=== PATIENT | male | born 1950 | race Caucasian/White ===

== ENCOUNTER 2017-10-17 16:47 | Inpatient (IN) | payer MEDICARE, OTHER ==
[2017-10-17 17:10] VITALS: BMI 25.0
[2017-10-17] MEDS ORDERED: Sodium Chloride 0.9% 1,000 ML IV STA ×2 (17:36→20:17)
--- NOTE | 2017-10-17 17:57 | RAD ---
HISTORY: unsteady gait COMPARISON: None available. TECHNIQUE: Chest, one view. FINDINGS: LUNGS: Mildly prominent interstitial markings may be chronic ; cannot entirely exclude mild infection or edema. Left basilar atelectasis. PLEURA: No significant pleural effusion identified. No definite pneumothorax . CARDIOVASCULAR: Heart size appears top normal. OSSEOUS STRUCTURES: Degenerative changes. VISUALIZED UPPER ABDOMEN: Unremarkable. OTHER FINDINGS: None. IMPRESSION: Mildly prominent interstitial markings may be chronic ; cannot entirely exclude mild infection or edema. Left basilar atelectasis.
[2017-10-17 18:29] LABS: BASO # 0.01 K/mm3 (0.0-2.0); BASO % 0.1 % (0.0-3.0); EOS % 0.1 % (1.5-5.0); GRAN # 12.28 (1.4-6.5); GRAN % 82.5 % (50.0-68.0); HEMATOCRIT 30.1 % (42.0-52.0); LYMPH # 1.3 (1.2-3.4); LYMPH % 8.8 % (22.0-35.0); MEAN CELL VOLUME 85.5 fl (80.0-105.0); MEAN CORPUSCULAR HEMOGLOBIN 29.3 pg (25.0-35.0); MEAN CORPUSCULAR HGB CONC 34.2 g/dl (31.0-37.0); MEAN PLATELET VOLUME 11.9 fl (7.0-11.0); MONO # 1.3 (0.1-0.6); MONO % 8.5 % (1.0-6.0); RED CELL DISTRIBUTION WIDTH 12.1 % (11.5-14.5); WHITE BLOOD COUNT 14.9 10^3/ul (4.5-11.0)
--- NOTE | 2017-10-17 18:35 | CT ---
PROCEDURE: CT HEAD WITHOUT CONTRAST. HISTORY: unsteady gait COMPARISON: None available. TECHNIQUE: Axial computed tomography images were obtained through the head/brain without intravenous contrast. Radiation dose: Total exam DLP = 1132.75 mGy-cm. This CT exam was performed using one or more of the following dose reduction techniques: Automated exposure control, adjustment of the mA and/or kV according to patient size, and/or use of iterative reconstruction technique. FINDINGS: HEMORRHAGE: No intracranial hemorrhage. BRAIN: There are mild chronic microangiopathic changes. There is no mass, mass effect or abnormal extra-axial fluid collection. There are old lacunar infarctions in the right basal ganglia. There are coarse atherosclerotic calcifications in the cavernous carotid and vertebral arteries. VENTRICLES: There is mild age-related global parenchymal volume loss and proportionate enlargement of the ventricles and cortical sulci. CALVARIUM: The skull base and calvarium are normal. PARANASAL SINUSES: There is mild mucosal thickening in the maxillary sinuses. 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 MASTOID AIR CELLS: Predominantly clear. OTHER FINDINGS: None. IMPRESSION: No acute intracranial abnormality. Mild chronic microangiopathic changes and mild age-related global parenchymal volume loss. Old lacunar infarctions in the right basal ganglia.
[2017-10-17 18:41] LABS: INR 1.04 (0.93-1.08); PARTIAL THROMBOPLASTIN TIME 30.5 Seconds (25.1-36.5)
--- NOTE | 2017-10-17 18:43 | ED PDOC ---
Arrival/HPI - General Chief Complaint: Weakness/Neurological Deficit Time Seen by Provider: 10/17/17 16:54 Historian: Patient, Family - History of Present Illness Narrative History of Present Illness (Text): 10/17/17 18:39 67-year-old male presents today sent in by the primary care physician for evaluation of unsteady gait.Family and patient yesterday vomited and became unresponsive and was seen at another hospital and had a CAT scan of the head and basic lab work and was sent home. Family states that the patient did not sleep last night and this morning they noticed that he was leaning towards the left with ambulation. Family states he usually is a little unsteady on his feet but this seemed to be a significant difference from his usual. Patient denies headache or dizziness. Patient denies chest pain or shortness of breath. Patient denies abdominal pain. Patient is complaining of left shoulder pain and low back pain has been ongoing since yesterday. He denies urinary symptoms. Patient is complaining of paresthesias in the bilateral lower legs. Family states the patient is a diabetic who has been uncontrolled. Family states that his recent blood tests showed that his hemoglobin A1c was 11. Time/Duration: Other (1 day) Symptom Onset: Gradual Symptom Course: Worsening Past Medical History - Provider Review Nursing Documentation Reviewed: Yes - Travel History Have you recently traveled outside [place] w/in the past 3 mons?: No - Cardiac Hx Hypertension: Yes - Pulmonary Hx Respiratory Disorders: No - Neurological Hx Neurological Disorder: No - HEENT Hx Blind: No - Renal Hx Renal Disorder: No - Endocrine/Metabolic Other/Comment: uncontrolled IDDM - Hematological/Oncological Hx Blood Disorders: No - Integumentary Hx Dermatological Disorder: No - Musculoskeletal/Rheumatological Hx Musculoskeletal Disorders: No - Gastrointestinal Hx Gastrointestinal Disorders: No - Genitourinary/Gynecological Hx Genitourinary Disorders: No - Psychiatric Hx Psychophysiologic Disorder: No Hx Substance Use: No - Anesthesia Hx Anesthesia: Yes Family/Social History - Physician Review Nursing Documentation Reviewed: Yes Family/Social History: Unknown Family HX Smoking Status: Never Smoked Hx Alcohol Use: No Hx Substance Use: No Allergies/Home Meds Allergies/Adverse Reactions: Allergies Penicillins Allergy (Verified 10/17/17 17:10) ITCHING Home Medications: Home Meds Medication Instructions Recorded Confirmed Gabapentin [Neurontin] 300 mg PO TID 10/17/17 10/17/17 Insulin Glargine, Recombina 0 unit SC DAILY 10/17/17 10/17/17 [Lantus] Insulin Lispro [humALOG] 0 unit SC DAILY 10/17/17 10/17/17 Losartan [Cozaar] 1 tab PO DAILY 10/17/17 10/17/17 Review of Systems - Review of Systems Constitutional: Fatigue. absent: Fevers Respiratory: absent: SOB, Cough Cardiovascular: absent: Chest Pain, Palpitations Gastrointestinal: Vomiting (once yesterday). absent: Abdominal Pain, Diarrhea, Nausea Genitourinary Male: absent: Dysuria, Frequency, Hematuria Musculoskeletal: Arthralgias (b/l knee pain), Back Pain. absent: Neck Pain Skin: absent: Rash, Pruritis Neurological: Gait Changes. absent: Headache Physical Exam Vital Signs Reviewed: Yes Vital Signs Temp Pulse Resp BP Pulse Ox 10/17/17 22:00 88 18 142/88 95 10/17/17 20:28 99.3 F 10/17/17 20:14 99.3 F 89 16 159/95 H 99 10/17/17 17:10 98.3 F 93 H 18 117/70 96 10/17/17 17:09 98.3 F 93 H 19 117/70 96 Temperature: Afebrile Blood Pressure: Normal Pulse: Regular Respiratory Rate: Normal Appearance: Positive for: Well-Appearing, Non-Toxic, Comfortable Pain Distress: None Mental Status: Positive for: Alert and Oriented X 3 Finger Stick Blood Glucose: 460 - Systems Exam Head: Present: Atraumatic Pupils: Present: PERRL Extroacular Muscles: Present: EOMI Ears: Present: Normal, NORMAL TM Mouth: Present: Moist Mucous Membranes Pharnyx: Present: Normal. No: ERYTHEMA, EXUDATE Neck: Present: Normal Range of Motion, Trachea Midline Respiratory/Chest: Present: Good Air Exchange, Rhonchi. No: Respiratory Distress, Accessory Muscle Use, Wheezes, Tachypneic, Tender to Palpation Cardiovascular: Present: Regular Rate and Rhythm, Normal S1, S2. No: Murmurs Abdomen: No: Tenderness, Distention, Rebound, Guarding Back: Present: Normal Inspection Upper Extremity: Present: Normal ROM. No: Tenderness Lower Extremity: Present: Normal ROM. No: Tenderness Neurological: Present: GCS=15, Speech Normal Skin: Present: Warm, Dry. No: Rashes Psychiatric: Present: Alert, Oriented x 3 Medical Decision Making ED Course and Treatment: 10/17/17 22:05 67-year-old male brought in by family for unsteady gait. Patient is alert and oriented. Stroke score is 0 Patient with stable vital signs. Complaining of generalized weakness. CBC: White blood cell count 14.9 CMP sodium 131 potassium 5.2 nightly 32 creatinine 1.6 glucose 461 Lactate 1.0 Troponin 0.05 Alcohol level negative UA: small blood, no leukocytes Chest x-ray:FINDINGS: LUNGS: Mildly prominent interstitial markings may be chronic ; cannot entirely exclude mild infection or edema. Left basilar atelectasis. PLEURA: No significant pleural effusion identified. No definite pneumothorax . CARDIOVASCULAR: Heart size appears top normal. OSSEOUS STRUCTURES: Degenerative changes. VISUALIZED UPPER ABDOMEN: Unremarkable. OTHER FINDINGS: None. IMPRESSION: Mildly prominent interstitial markings may be chronic ; cannot entirely exclude mild infection or edema. Left basilar atelectasis. CT of the head:FINDINGS: HEMORRHAGE: No intracranial hemorrhage. BRAIN: There are mild chronic microangiopathic changes. There is no mass, mass effect or abnormal extra-axial fluid collection. There are old lacunar infarctions in the right basal ganglia. There are coarse atherosclerotic calcifications in the cavernous carotid and vertebral arteries. VENTRICLES: There is mild age-related global parenchymal volume loss and proportionate enlargement of the ventricles and cortical sulci. CALVARIUM: The skull base and calvarium are normal. PARANASAL SINUSES: There is mild mucosal thickening in the maxillary sinuses. 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 MASTOID AIR CELLS: Predominantly clear. OTHER FINDINGS: None. IMPRESSION: No acute intracranial abnormality. Mild chronic microangiopathic changes and mild age-related global parenchymal volume loss. Old lacunar infarctions in the right basal ganglia. blood cultures and urine cultures pending. pt with hx of vomiting yesterday with ? moment of unconsciousness ? aspiration pna; pt started on vancomycin, clindamycin and levaquin IV. asa 325mg po given tylenol 975mg po given for low grade fever. pt given 2L NS iv bolus and 6 units regular insulin sq. case discussed with dr. alonzo; accepts admission to [facility] for pneumonia, leukocytosis, unsteady gait. Patient reassessment: Patient nontoxic well-appearing no distress eating [employer] in the emergency room alert and oriented 3 denying any complaints All results were discussed with the patient and family in depth. all aspects of this case were discussed the attending of record. impression; pna, leukocytosis, hyperglycemia, unsteady gait, renal insuffiency admit to tele. - Lab Interpretations Lab Results: 10/17/17 18:05 10/17/17 18:05 Lab Results 10/17/17 20:11: POC Glucose (mg/dL) 399 H 10/17/17 19:40: Urine Color Yellow, Urine Appearance Clear, Urine pH 5.5, Ur Specific [place] 1.010, Urine Protein 100 H, Urine Glucose (UA) >=1000, Urine Ketones Negative, Urine Blood Small H, Urine Nitrate Negative, Urine Bilirubin Negative, Urine Urobilinogen 0.2, Ur Leukocyte Esterase Negative, Urine RBC 15 - 20, Urine WBC 2 - 5, Ur Epithelial Cells 3 - 4 10/17/17 19:26: pO2 105 H, VBG pH 7.38, VBG pCO2 40.0, VBG HCO3 23.7, VBG Total CO2 24.9, VBG O2 Sat (Calc) 98.4 H, VBG Base Excess -1.3 L, VBG Potassium 4.9, Glucose 480 H*, Lactate 1.0, FiO2 21.0, Sodium 133.0, Chloride 102.0, Venous Blood Potassium 4.9 10/17/17 19:26: Alcohol, Quantitative < 10 10/17/17 18:05: PT 11.4, INR 1.04, APTT 30.5 10/17/17 18:05: WBC 14.9 H, RBC 3.52, Hgb 10.3 L, Hct 30.1 L, MCV 85.5, MCH 29.3 , MCHC 34.2, RDW 12.1, Plt Count 142, MPV 11.9 H, Gran % 82.5 H, Lymph % (Auto) 8.8 L, [place] % (Auto) 8.5 H, Eos % (Auto) 0.1 L, Baso % (Auto) 0.1, Gran # 12.28 H, Lymph # 1.3, [place] # 1.3 H, Eos # 0.0, Baso # 0.01 10/17/17 18:05: Sodium 131 L, Potassium 5.2 H, Chloride 99, Carbon Dioxide 23, Anion Gap 13, BUN 32 H, Creatinine 1.6 H, Est GFR ( Amer) 53, Est GFR ( Non-Af Amer) 44, Random Glucose 461 H*, Calcium 9.3, Total Bilirubin 1.2, AST 25 , ALT 42, Alkaline Phosphatase 80, Lactate Dehydrogenase 529, Total Creatine Kinase 137, Troponin I 0.05, NT-Pro-B Natriuret Pep 307, Total Protein 6.8, Albumin 3.9, Globulin 3.0, Albumin/Globulin Ratio 1.3, Lipase 80 10/17/17 17:27: POC Glucose (mg/dL) 460 H* - RAD Interpretation Radiology Orders: 10/17/17 17:20 CHEST PORTABLE [RAD] Stat 10/17/17 17:36 HEAD W/O CONTRAST [CT] Stat - Medication Orders Current Medication Orders: Acetaminophen (Tylenol 325mg Tab) 650 mg PO Q4H PRN PRN Reason: pain fever Albuterol/Ipratropium (Duoneb 3 Mg/0.5 Mg (3 Ml) Ud) 3 ml IH [id number] WILLAM Aspirin (Aspirin) 325 mg PO DAILY WILLAM Famotidine (Pepcid) 40 mg PO HS WILLAM Gabapentin (Neurontin) 300 mg PO TID WILLAM PRN Reason: Protocol Insulin Detemir (Levemir) 5 unit SC AMHS WILLAM Insulin Human Regular (Humulin R Low) 0 units SC ACHS WILLAM PRN Reason: Protocol Losartan Potassium (Cozaar) 25 mg PO DAILY WILLAM Discontinued Medications Acetaminophen (Tylenol 325mg Tab) 975 mg PO STAT STA Stop: 10/17/17 20:17 Last Admin: 10/17/17 20:28 Dose: 975 mg MAR Pain/Vitals Document 10/17/17 20:28 JOL (Rec: 10/17/17 20:28 JOL [id number]) Pain Reassessment Is This A Pain ReAssessment? No Sleep Is patient sleeping during reassessment? No Presence of Pain Presence of Pain No Vitals Temperature (97.6 F-99.6 F) 99.3 F Temperature Source Oral Aspirin (Aspirin) 325 mg PO STAT STA Stop: 10/17/17 20:14 Last Admin: 10/17/17 20:28 Dose: 325 mg Sodium Chloride (Sodium Chloride 0.9%) 1,000 mls @ 999 mls/hr IV .Q1H1M STA Stop: 10/17/17 18:36 Last Admin: 10/17/17 18:11 Dose: 999 mls/hr eMAR Start Stop Document 10/17/17 18:11 MR (Rec: 10/17/17 18:12 MR [id number]) Intravenous Solution Start Date 10/17/17 Start Time 18:12 End Date 10/17/17 End time 19:12 Total Infusion Time 60 Clindamycin Phosphate 600 mg/ (Sodium Chloride) 54 mls @ 108 mls/hr IVPB STAT STA PRN Reason: Protocol Stop: 10/17/17 19:37 Last Admin: 10/17/17 19:40 Dose: 108 mls/hr eMAR Start Stop Document 10/17/17 19:40 JOL (Rec: 10/17/17 19:46 JOL [id number]) Intravenous Solution Start Date 10/17/17 Start Time 19:40 End Date 10/17/17 End time 20:10 Total Infusion Time 30 Levofloxacin/Dextrose (Levaquin 750mg) 750 mg in 150 mls @ 100 mls/hr IVPB STAT STA PRN Reason: Protocol Stop: 10/17/17 20:38 Vancomycin HCl (Vancomycin 1gm) 1 gm in 250 mls @ 167 mls/hr IVPB STAT STA PRN Reason: Protocol Stop: 10/17/17 20:38 Last Admin: 10/17/17 20:13 Dose: 167 mls/hr eMAR Start Stop Document 10/17/17 20:13 JOL (Rec: 10/17/17 20:13 JOL [id number]) Intravenous Solution Start Date 10/17/17 Start Time 20:13 End Date 10/17/17 End time 21:43 Total Infusion Time 90 Sodium Chloride (Sodium Chloride 0.9%) 1,000 mls @ 999 mls/hr IV .Q1H1M STA Stop: 10/17/17 21:17 Last Admin: 10/17/17 20:28 Dose: 999 mls/hr eMAR Start Stop Document 10/17/17 20:28 JOL (Rec: 10/17/17 20:28 JO [id number]) Intravenous Solution Start Date 10/17/17 Start Time 20:28 End Date 10/17/17 End time 21:28 Total Infusion Time 60 Levofloxacin/Dextrose (Levaquin 500mg) 500 mg in 100 mls @ 100 mls/hr IVPB STAT STA PRN Reason: Protocol Stop: 10/17/17 21:59 Insulin Human Regular (Humulin R) 6 units SC STAT STA Stop: 10/17/17 18:54 Last Admin: 10/17/17 19:15 Dose: 6 units Subcutaneous Administrations Document 10/17/17 19:15 ANGELIKA (Rec: 10/17/17 19:32 JOL [id number]) Injection Site MAR Injection Site Left Arm Charges for Administration # of Subcutaneous Administrations 1 NIHSS Scale ([place]) Time Performed: 17:20 - How Severe is the Stoke Baseline Level of Consciousness: 0=Alert LOC to Questions: 0=Both comments correct LOC to commands: 0=Obeys both correctly Best Gaze: 0=Normal Visual: 0=No visual loss Facial: 0=Normal Motor Arm - Left: 0=No drift Motor Arm - Right: 0=No drift Motor Leg - Left: 0=No drift Motor Leg - Right: 0=No drift Limb Ataxia: 0=Absent Sensory: 0=Normal Best Language: 0=No aphasia Dysarthia: 0=Normal articulation Extinction & Inattention (Neglect): 0=Normal, no object Score: 0 Risk Level: No Stroke Risk Disposition/Present on Arrival - Present on Arrival Any Indicators Present on Arrival: No History of DVT/PE: No History of Uncontrolled Diabetes: No Urinary Catheter: No History of Decub. Ulcer: No History Surgical Site Infection Following: None - Disposition Have Diagnosis and Disposition been Completed?: Yes Diagnosis: Pneumonia, Leukocytosis, Hyperglycemia, Unsteady gait Disposition: HOSPITALIZED Disposition Time: 20:15 Patient Plan: Admission, Telemetry Condition: FAIR
[2017-10-17 18:44] LABS: ALB/GLOB RATIO 1.3 (1.1-1.8); BILIRUBIN,TOTAL 1.2 mg/dL (0.2-1.3); CALCIUM 9.3 mg/dL (8.4-10.5); POTASSIUM 5.2 mmol/L (3.6-5.0); TOTAL PROTEIN 6.8 g/dL (5.8-8.3)
[2017-10-17 18:52] LABS: TROPONIN I 0.05 ng/mL
[2017-10-17] MEDS ORDERED: Insulin Regular 1 UNITS/0.01 ML ML SC STA (18:53)
[2017-10-17] MEDS ORDERED: Vancomycin 1gm in NS 250ml 1 GM/250 ML BAG IVPB STA (19:09)
[2017-10-17] MEDS ORDERED: levoFLOXacin 750 mg in D5W 750 MG/150 ML BAG IVPB STA (19:09)
--- NOTE | 2017-10-17 19:44 | CARD ---
APPROVED REPORT EKG Measurement Heart [id number] <Conclusion> Normal sinus rhythm Possible Left atrial enlargement Borderline ECG
[2017-10-17 19:52] LABS: VENOUS BLOOD GAS BASE EXCESS -1.3 mmol/L (0.0-2.0); VENOUS BLOOD PH 7.38 (7.32-7.43)
[2017-10-17 20:14] LABS: PH,URINE 5.5 (4.7-8.0); URINE BILIRUBIN NEGATIVE (NEGATIVE); URINE BLOOD SMALL (NEGATIVE); URINE GLUCOSE (UA) >=1000 mg/dL (NEGATIVE); URINE KETONE NEGATIVE (NEGATIVE); URINE LEUKOCYTE ESTERASE NEGATIVE Leu/uL (NEGATIVE); URINE PROTEIN 100 mg/dL (<30 mg/dL); URINE UROBILINOGEN 0.2 E.U./dL (<1 E.U./dL)
[2017-10-17 20:16] LABS: URINE APPEARANCE CLEAR (CLEAR); URINE COLOR YELLOW (YELLOW)
[2017-10-17 20:20] LABS: URINE RBC 15 - 20 /hpf (0-2)
[2017-10-17] MEDS ORDERED: levoFLOXacin 500 mg in D5W 500 MG/100 ML BAG IVPB STA (21:00)
[2017-10-17] MEDS ORDERED: Insulin Regular 1 UNITS/0.01 ML ML ONE (23:02)
[2017-10-17] MEDS: Insulin Reg-LOW-Coverage SC SCH (23:07)
[2017-10-17] MEDS: Insulin Detemir 100 units/ml Vial (Levemir) SC SCH (23:10)
[2017-10-17 23:19] LABS: IRON 19 ug/dL (45-180)
[2017-10-17 23:28] LABS: TROPONIN I 0.05 ng/mL
[2017-10-18] MEDS: Albuterol-Ipratrop 3 mg / 0.5 (3 ml) UD IH SCH ×4 (01:26→19:39)
[2017-10-18 07:09] LABS: HEMATOCRIT 27.6 % (42.0-52.0); MEAN CELL VOLUME 85.2 fl (80.0-105.0); MEAN CORPUSCULAR HEMOGLOBIN 28.7 pg (25.0-35.0); MEAN CORPUSCULAR HGB CONC 33.7 g/dl (31.0-37.0); MEAN PLATELET VOLUME 11.7 fl (7.0-11.0); RED CELL DISTRIBUTION WIDTH 12.2 % (11.5-14.5); WHITE BLOOD COUNT 8.7 10^3/ul (4.5-11.0)
[2017-10-18 08:06] LABS: BLOOD UREA NITROGEN 24 mg/dL (7-21); CALCIUM 8.5 mg/dL (8.4-10.5); CARBON DIOXIDE 21 mmol/L (21-33); CHLORIDE 107 mmol/L (98-107); GFR AFRICAN-AMERICAN > 60; GLUCOSE,RANDOM 227 mg/dL (70-110); POTASSIUM 4.1 mmol/L (3.6-5.0); SODIUM 135 mmol/L (132-148)
[2017-10-18] MEDS: Insulin Reg-LOW-Coverage SC SCH ×4 (08:42→21:43)
--- NOTE | 2017-10-18 09:54 | MRI ---
PROCEDURE: MRI BRAIN WITHOUT CONTRAST HISTORY: tia COMPARISON: None. TECHNIQUE: Multiplanar, multisequence MR images of the brain were obtained without intravenous contrast enhancement. FINDINGS: HEMORRHAGE: None DWI: No evidence of an acute or early subacute infarction. BRAIN PARENCHYMA: No mass effect or edema. No atrophy or chronic microvascular ischemic changes. VENTRICLES: Unremarkable. No hydrocephalus. CRANIUM: Unremarkable. ORBITS: Grossly unremarkable. PARANASAL SINUSES/MASTOIDS: Clear VASCULAR SYSTEM: Skull base flow voids intact. OTHER FINDINGS: None. IMPRESSION: No acute findings
[2017-10-18] MEDS ORDERED: INSULIN GLARGINE RECOMBINA 10 UNIT SC SCH (10:00)
[2017-10-18] MEDS: Insulin Detemir 100 units/ml Vial (Levemir) SC SCH ×2 (10:18→21:46)
--- NOTE | 2017-10-18 10:25 | RAD ---
PROCEDURE: Radiographs of the Left Shoulder HISTORY: pain COMPARISON: No prior. FINDINGS: BONES: Normal. No fracture. JOINTS: Normal. Glenohumeral and acromioclavicular joints preserved. No osteoarthritis. SOFT TISSUES: Normal. OTHER FINDINGS: None. IMPRESSION: Normal radiographs of the left shoulder.
[2017-10-18 13:04] LABS: FOLATE 6.2 ng/mL
--- NOTE | 2017-10-18 13:09 | CT ---
PROCEDURE: CT Chest without contrast HISTORY: r/o infection/PNA COMPARISON: None. TECHNIQUE: Contiguous axial images were obtained through the chest without intravenous contrast enhancement. Sagittal and coronal reconstructions were performed. Radiation dose (DLP): 381 mGy-cm. This CT exam was performed using one or more of the following dose reduction techniques: Automated exposure control, adjustment of the mA and/or kV according to patient size, and/or use of iterative reconstruction technique. FINDINGS: LUNGS: There is a dense alveolar infiltrate in the left lower lobe. There is a patchy infiltrate in the lingular segment of the left upper lobe in in the right upper lobe. Findings are consistent with pneumonia MEDIASTINUM: Unremarkable thoracic aorta. No aneurysm. Normal sized heart. Main pulmonary artery unremarkable. No vascular congestion. No lymphadenopathy. PLEURA: No pleural fluid. No pneumothorax. BONES: No fracture. No destructive lesion. UPPER ABDOMEN: Grossly unremarkable. OTHER FINDINGS: None. IMPRESSION: There is a dense alveolar infiltrate in the left lower lobe. There is a patchy infiltrate in the lingular segment of the left upper lobe and in the right upper lobe. Findings are consistent with pneumonia
--- NOTE | 2017-10-18 13:23 | CP.PCM.PCO ---
Assessment & Plan - Assessment and Plan (Free Text) Assessment: NEURO COMMUNICATION NOTE: PATIENTS MRI BRAIN IS NEGATIVE FOR ACUTE INFARCTS. 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 -GENERALIZED WEAKNESS SEC TO METABOLIC DERANGEMENTS. -ELEVATED CHOLESTEROL AND TRIGLYCERIDES. PLAN: ASA 81 MG PLUS LIPITOR OF 40 MG PO DAILY FOR STROKE PREVENTION. KEEP BS [id number]. DIABETIC EDUCATION AND DIET NEEDED. PHYSICAL THERAPY EVALUATION FOR GAIT,BALANCE AND MUSCLE STRENGTHENING EXERCISES. MONITOR AND CORRECT ELECTROLYTES. THANK YOU JARRED BROOKS.
[2017-10-18] MEDS: Aztreonam 1 Gm in NS 100mL 100 ML IVPB SCH ×2 (14:03→21:43)
--- NOTE | 2017-10-18 19:24 | CON ---
DATE: 10/18/2017 NEUROLOGY CONSULTATION CHIEF COMPLAINT: Generalized weakness. CURRENT HISTORY OF PRESENT ILLNESS: This is a 67-year-old man with history of uncontrolled diabetes, hypertension, who presented to the hospital because he was vomiting and became unresponsive as per family member, came to the hospital. CAT scan of the head show no acute intracranial abnormalities. His MRI of the brain showed no acute intracranial abnormalities as well. He was lean towards left with ambulation and is unsteady on his feet. He has paresthesia, tingling, numbness in his feet as well. He found to have hemoglobin A1c during his admission of 13.5 indicating poorly controlled diabetes and elevated blood glucose of 460 when he was admitted. He has poorly controlled diabetic. He has elevated triglycerides and cholesterol. His B12 was 647. His MRI of the brain showed no acute intracranial abnormality. At this time, he is seen as following commands and moving all extremities without any difficulty. ALLERGIES: PENICILLIN. PAST MEDICAL HISTORY: Type 2 diabetes mellitus, hypertension, dyslipidemia, hypertriglyceridemia. REVIEW OF SYSTEMS: A 14-point review of systems is negative except as per the HPI. SOCIAL HISTORY: No illicit drug abuse, smoking, or EtOH abuse. MEDICATIONS: Reviewed by nurse's reconciliation sheet. PHYSICAL EXAMINATION VITAL SIGNS: Temperature 98.2, pulse rate of 91, blood pressure of 130/75, respiratory rate 20. GENERAL: The patient is sitting up in bed, in no acute distress. HEENT: Head is atraumatic and normocephalic. PERRLA. Extraocular muscles intact. NECK: Supple. No JVD. No adenopathy noted. LUNGS: Clear to auscultation. No adventitious sounds. HEART: S1 and S2, normal rate and rhythm. No murmurs, rubs, or gallops. ABDOMEN: Soft, nontender, nondistended. Bowel sounds are present. EXTREMITIES: No clubbing, no cyanosis. Peripheral pulses 2+ bilaterally. NEUROLOGIC: The patient is alert, oriented to person, place, month, and year. Speech is fluent without any errors. Cranial nerves II through XII intact. Motor exam, moves all extremities equally. Toes downgoing bilaterally. Sensory exam: Decreased light touch, pinprick, proprioception up to the calves bilaterally, decreased vibration of the toes. DTRs are 2+ throughout and 1 at both knees and absent at the ankles. Coordination: [id number] intact. Gait is deferred for now. LABORATORY DATA: Sodium 135, potassium 4.1, chloride 107, carbon dioxide 21, BUN of 24, creatinine of 1.3. Blood glucose 227. Hemoglobin A1c of 13.5, triglycerides 622, his elevated cholesterol 230. MRI of the brain showed no acute intracranial abnormalities. 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 He has generalized weakness is secondary to metabolic derangements and hyperglycemia and he also has elevated cholesterol and hypertriglyceridemia as well. At this time, recommend: Aspirin 81 mg, Lipitor 40 mg daily for stroke prevention, he needs fenofibrate for his hypertriglyceridemia. Needs low fat, low cholesterol and diabetic diet. Recommend to keep blood sugars between 140 to 180 and need diabetic education and recommend Physical Therapy evaluation for gait balance and muscle strengthening and will follow up as an outpatient for an EMG, nerve conduction study to assess the extent of neuropathy. At this time, monitor electrolytes, corrected currently. Thank you for this consult. Nicola Castro MD
--- NOTE | 2017-10-18 22:01 | CON ---
DATE: 10/18/2017 LOCATION: Patient in room 373, bed 2. REASON FOR CONSULTATION: Left upper chest and shoulder pain, diabetes, hypertension, unsteady gait. HISTORY OF PRESENT ILLNESS: Patient is a 67-year-old male, known case of diabetes and hypertension. Patient at home vomited yesterday and became unresponsive for a short while, and also for a short while, according to brother, had slight slurring of speech and then his gait became unsteady and when the family was walking him holding, he was leaning towards the left. Patient denies any palpitation, shortness of breath, or diaphoresis with this episode. He denies any prior history of exertional chest pain. PAST MEDICAL HISTORY: Positive for diabetes, hypertension. Patient was also treated for osteomyelitis of the large toe of the left foot. PERSONAL HISTORY: Denies smoking, but he drinks [id number] on weekend. ALLERGIES: PATIENT ALLERGIC TO PENICILLIN. MEDICATIONS AT HOME: Patient at home was taking gabapentin 300 mg p.o. t.i.d., glargine insulin, insulin lispro, losartan 1 tablet p.o. daily. REVIEW OF SYSTEMS: All the systems reviewed, positive mentioned in history, otherwise negative. PHYSICAL EXAMINATION: VITAL SIGNS: Blood pressure 130/75, respirations 20, pulse 84, afebrile. HEENT: Head: Normocephalic. Eyes: Pupils normal. Conjunctivae are slightly pale. NECK: JVP low. Carotids equal. THORAX: AP diameter normal. LUNGS: Clear. CARDIOVASCULAR: S1, S2. ABDOMEN: Soft. No tenderness or organomegaly. Bowel sounds normal. EXTREMITIES: No clubbing. No cyanosis. LABORATORY DATA: WBC 8.7, hemoglobin 9.3, hematocrit 27.6, platelet 111. Sodium 135, potassium 4.1, BUN 24, creatinine 1.3, random sugar 227, hemoglobin A1c 13.5, serum iron 19 which is low, TIBC 259 which is also low, triglycerides 623, cholesterol 230. EKG showed normal sinus rhythm, 95 per minute. Chest x-ray: Some chronic interstitial changes. Brain MRI: There were no significant abnormality. CT chest showed dense alveolar infiltrate in the left lower lobe, patchy infiltrate in the lingular segment of the left upper lobe and the right upper lobe, findings are consistent with pneumonia. Carotid ultrasound has been done, report is pending. DIAGNOSES: Left upper and left shoulder pain, probably noncardiac; diabetes; hypertension; hypertriglyceridemia; hypercholesterolemia; anemia; peripheral neuropathy; unsteady gait; short syncope after vomiting yesterday. PLAN: This patient had been started on aspirin 325 mg p.o. daily, patient is also started on antibiotics, seen by infectious disease, Nette 25 mg daily, insulin. Patient also had been given IV iron sucrose, gabapentin 300 mg p.o. t.i.d., atorvastatin 40 mg p.o. daily. We will order echocardiogram and IV Lexiscan stress test and we will follow with you. Bro Salazar MD
--- NOTE | 2017-10-18 22:37 | US ---
PROCEDURE: Bilateral carotid artery duplex ultrasound HISTORY: Carotid stenosis TIA PHYSICIAN(S): Marin Bennett MD. TECHNIQUE: Duplex sonography and color-flow Doppler were used to evaluate the carotid bifurcations and limited segments of the vertebral arteries bilaterally. FINDINGS: The exam is somewhat limited by tortuous vessels. There is mild smooth heterogeneous plaque noted at the carotid bifurcations bilaterally. The peak systolic velocity in the proximal right internal carotid artery is 95 cm/sec. This corresponds to a 20 to 39% proximal right ICA stenosis. Normal systolic velocities are noted in the proximal right external carotid artery. There is antegrade flow in the right vertebral artery. The peak systolic velocity in the proximal left internal carotid artery is 82 cm/sec. This corresponds to a 20 to 39% proximal left ICA stenosis. Normal systolic velocities are noted in the proximal left external carotid artery. There is antegrade flow in the left vertebral artery. IMPRESSION: 1. Bilateral 20-39% proximal ICA stenoses. 2. Antegrade flow in both vertebral arteries.
--- NOTE | 2017-10-18 23:03 | PN ---
DATE: SUBJECTIVE: The patient is 67-year-old male. The patient was seen and examined on the bedside, looking better. No fever and no chills. No nausea, vomiting or diarrhea. No hematuria or hematochezia. No swelling of the leg. No chest pain. No palpitation. No headache or dizziness. Mental status is improved. Family is around. No hematuria or hematochezia. PHYSICAL EXAMINATION: VITAL SIGNS: Temperature is 98.4, pulse is 85, blood pressure is 177/102, and respiratory rate is 19. HEENT: Head is normocephalic and atraumatic. Eyes: PERRLA. Extraocular muscles are intact. Conjunctivae are clear. Nose is patent. Mucous membranes are moist. NECK: Supple. No carotid bruit. No JVD or thyromegaly. CHEST: Bilateral symmetrical. HEART: S1 and S2 positive. LUNGS: Clear to auscultation. ABDOMEN: Soft and bowel sounds present. No organomegaly. EXTREMITIES: No edema. No cyanosis. NEUROLOGIC: The patient is awake, alert. Moving all four extremities. No focal deficits. LABORATORY DATA: White blood cell is 8.7, on admission it was 14.9, hemoglobin is 9.3, hematocrit is 27.6, and platelets are 111. Sodium is 135, potassium is 4.1, BUN is 24, creatinine is 1.3, and glucose is 227. MEDICATIONS: Aspirin, Azactam, Cozaar, DuoNeb, insulin, Levaquin, Lipitor, Neurontin, Pepcid, TriCor, and Tylenol. ASSESSMENT AND PLAN: Mr. Parish Nicholas is a 67-year-old male with leukocytosis improved, anemia, increased BUN, uncontrolled insulin requiring diabetes mellitus, hemoglobin A1c is 13.5, iron deficiency, hypercholesterolemia, and hypertriglyceridemia. Seen by Dr. Nicola Castro, neurologist. The patient has paresthesias in the extremities and unstable gait with generalized weakness. It is secondary to severe sensorimotor peripheral neuropathy from uncontrolled diabetes mellitus given his hemoglobin A1c is 13.5 and elevated blood sugar. The patient has metabolic derangement. We will continue aspirin 81 mg. 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 Rufus Aceves. There is a dense alveolar infiltrate in the left lower lobe. There is a patchy infiltrates in the lingular segment of the left upper lobe and in the right upper lobe. Findings are consistent with pneumonia, may be aspiration pneumonia because the patient has episodes of vomiting. Carotid ultrasound is done, results are still pending. Echocardiography done, results are still pending. Getting antibiotics. Length of time discussion done with the patient's family. Out of bed, physical therapy. We will follow. Ofelia Rios MD
[2017-10-19] MEDS: Albuterol-Ipratrop 3 mg / 0.5 (3 ml) UD IH SCH ×4 (01:04→20:05)
--- NOTE | 2017-10-19 01:27 | CON ---
PULMONARY CONSULTATION DATE: 10/18/2017 REFERRING PHYSICIAN: Ofelia Rios MD REASON FOR CONSULTATION: Uncontrolled diabetes, came in with bilateral lower extremity paresthesias, seen by Neurology, and had a CT of the head and MRI done, which was unremarkable. Admits to have loud snoring, daytime sleepy and tired. No hemoptysis. No hematemesis. No hematuria. No diarrhea reported. PAST MEDICAL HISTORY: Hypertension, uncontrolled diabetes, and peripheral neuropathy. FAMILY HISTORY: No significant cardiopulmonary disease reported. ALLERGIES: PENICILLIN, DEVELOP ITCHING. MEDICATIONS: He is on aspirin 325 mg daily, Azactam 1 g IV q.8 hours, Cozaar 25 mg daily, albuterol and Atrovent nebulizer q.6 hours, also received iron sucrose, IV Levaquin 500 mg daily, Levemir 5 units subcutaneously a.m. and at bedside, Lipitor 40 mg daily, gabapentin 300 mg 3 times a day, Pepcid 40 mg daily, TriCor 145 mg daily, and Tylenol p.r.n. basis. REVIEW OF SYSTEMS: No headache. No rhinitis. Has loud snoring, daytime sleepy, and tired. No nausea. No vomiting. No diarrhea. Has a chronic leg pain with paraesthesia. PHYSICAL EXAMINATION: GENERAL: Sleepy, arousable, and no acute distress. VITAL SIGNS: Temperature is 98, heart rate is 84, respiratory rate is 20, blood pressure is 130/75, and pulse oximetry is 98% on room air. HEENT: Moist mucous membrane. Crowded airway. Mallampati score is 4. NECK: Supple. No JVD. LUNGS: Has a fair airflow with few rhonchi. HEART: S1 and S2. ABDOMEN: Soft, nontender, and nondistended. EXTREMITIES: Does have tenderness. NEUROLOGIC: Sleepy, arousable, and follow simple commands. LABORATORY DATA: Shows hemoglobin 9.3, hematocrit 27.6, WBC 8.7, and platelet is 111. INR 1.04 and PTT 31. ABG show pH of 7.38, pCO2 of 40, and O2 is 105 this is on room air. Sodium 135, potassium 4.1, chloride 107, bicarbonate is 21, BUN 24, creatinine 1.3, glucose 227, calcium is 8.5, and iron is 35. LDH is 514. Troponin 0.05. Triglyceride 623 and cholesterol is 230. Vitamin B12 is 647 and folate is 6.2. Urinalysis shows RBC 15 to 20, WBC 2 to 5, blood is small, and protein is positive. CAT scan of the chest is done, which shows dense alveolar infiltrate in the left lower lobe. There is a patchy infiltrate in the lingular segment of the left upper lobe and the right upper lobe. MRI of the brain is done, which shows no acute finding. IMPRESSION AND PLAN: Community-acquired pneumonia, uncontrolled diabetes, hypertension, peripheral neuropathy, and may have a component of sleep apnea syndrome. I agree with Dr. Rios with the present management. Continue antibiotics. Keep head at 45 degrees. Bronchodilator. Sleep apnea precautions. Avoid sedation. Gastric prophylaxis. Deep venous thrombosis prophylaxis. Need anemia workup. May need Gastroenterology consult. Outpatient pulmonary function test and also need to attend sleep study. Thank you and we will follow with you. Bro Engle MD
[2017-10-19] MEDS: Aztreonam 1 Gm in NS 100mL 100 ML IVPB SCH ×3 (05:05→21:48)
[2017-10-19 07:37] LABS: HEMATOCRIT 28.4 % (42.0-52.0); MEAN CELL VOLUME 85.8 fl (80.0-105.0); MEAN CORPUSCULAR HEMOGLOBIN 28.7 pg (25.0-35.0); MEAN CORPUSCULAR HGB CONC 33.5 g/dl (31.0-37.0); MEAN PLATELET VOLUME 11.4 fl (7.0-11.0); RED CELL DISTRIBUTION WIDTH 12.4 % (11.5-14.5); WHITE BLOOD COUNT 7.2 10^3/ul (4.5-11.0)
[2017-10-19] MEDS: Insulin Reg-LOW-Coverage SC SCH ×5 (08:05→21:45)
[2017-10-19] MEDS: levoFLOXacin 500 mg in D5W 500 MG/100 ML BAG IVPB SCH ×2 (08:33→11:31)
[2017-10-19 09:21] LABS: ALB/GLOB RATIO 1.2 (1.1-1.8); BILIRUBIN,TOTAL 0.8 mg/dL (0.2-1.3); POTASSIUM 3.9 mmol/L (3.6-5.0); TOTAL PROTEIN 6.1 g/dL (5.8-8.3)
[2017-10-19] MEDS ORDERED: Aminophylline 25 mg/ml Inj ONE (09:32)
[2017-10-19] MEDS ORDERED: Vancomycin 1gm in NS 250ml 1 GM/250 ML BAG IVPB STA (09:45)
[2017-10-19] MEDS: Insulin Detemir 100 units/ml Vial (Levemir) SC SCH ×3 (11:32→21:51)
--- NOTE | 2017-10-19 12:34 | CP.PCM.CON ---
History of Present Illness - History of Present Illness History of Present Illness: 67 year old male with PMH of HTN, DM, history of right hallux osteomyelitis S/P treatment with antibiotics 2015 was brought in to [facility] [place] after he was found to have a more unsteady gait yesterday as well as lethargy. The patient has been having some lethargy since 2-3 days ago but worse yesterday as per family. He has also been having decreased appetite and less energy. He has no chest pain , no SOB, no cough, no abdominal pain, no dysuria, no diarrhea. CXR and CT chest is showing infiltrates in the left and right upper lobes and left lower lobe. Infectious diseases consult is requested to further evaluate and manage. Of note, the patient has received his pneumonia vaccine but does not get Influenza vaccines. He has not been on antibiotics or been admitted in a hospital in the past 3 months. Review of Systems - Review of Systems All systems: reviewed and no additional remarkable complaints except (as per HPI ) Past Patient History - Past Social History Smoking Status: Never Smoked - CARDIAC Hx Hypercholesterolemia: Yes Hx Hypertension: Yes - PULMONARY Hx Respiratory Disorders: No - NEUROLOGICAL Hx Neurological Disorder: No - HEENT Hx Cataracts: Yes - RENAL Hx Chronic Kidney Disease: No - ENDOCRINE/METABOLIC Hx Diabetes Mellitus Type 2: Yes - HEMATOLOGICAL/ONCOLOGICAL Hx Blood Disorders: No - INTEGUMENTARY Hx Dermatological Problems: No - MUSCULOSKELETAL/RHEUMATOLOGICAL Hx Falls: No Hx Fractures: Yes (R hand) - GASTROINTESTINAL Hx Gastrointestinal Disorders: No - GENITOURINARY/GYNECOLOGICAL Hx Genitourinary Disorders: No - PSYCHIATRIC Hx Psychophysiologic Disorder: No Hx Substance Use: No - SURGICAL HISTORY Hx Surgeries: Yes (Cataract) - ANESTHESIA Hx Anesthesia: Yes Meds Allergies/Adverse Reactions: Allergies Allergy/AdvReac Type Severity Reaction Status Date / Time Penicillins Allergy ITCHING Verified 10/17/17 17:10 - Medications Medications: Current Medications Acetaminophen (Tylenol 325mg Tab) 650 mg PO Q4H PRN PRN Reason: pain fever Albuterol/Ipratropium (Duoneb 3 Mg/0.5 Mg (3 Ml) Ud) 3 ml IH [id number] [facility] Last Admin: 10/18/17 07:50 Dose: 3 ml Aspirin (Aspirin) 325 mg PO DAILY [facility] Last Admin: 10/18/17 10:18 Dose: 325 mg Atorvastatin Calcium (Lipitor) 40 mg PO DIN [facility] Famotidine (Pepcid) 40 mg PO HS [facility] Last Admin: 10/17/17 23:11 Dose: 40 mg Fenofibrate (Tricor) 145 mg PO DAILY [facility] Gabapentin (Neurontin) 300 mg PO TID [facility] PRN Reason: Protocol Last Admin: 10/18/17 10:18 Dose: 300 mg Iron Sucrose 100 mg/ Sodium (Chloride) 105 mls @ 210 mls/hr IVPB DAILY [facility] Stop: 10/21/17 10:29 Levofloxacin/Dextrose (Levaquin 500mg) 500 mg in 100 mls @ 100 mls/hr IVPB DAILY [facility] PRN Reason: Protocol Insulin Detemir (Levemir) 5 unit SC AMHS [facility] Last Admin: 10/18/17 10:18 Dose: 5 unit Insulin Human Regular (Humulin R Low) 0 units SC ACHS [facility] PRN Reason: Protocol Last Admin: 10/18/17 08:42 Dose: 2 units Losartan Potassium (Cozaar) 25 mg PO DAILY [facility] Last Admin: 10/18/17 10:18 Dose: 25 mg Physical Exam - Constitutional Appears: Non-toxic - Head Exam Head Exam: NORMAL INSPECTION - Respiratory Exam Respiratory Exam: Decreased Breath Sounds - Cardiovascular Exam Cardiovascular Exam: +S1, +S2 - GI/Abdominal Exam GI & Abdominal Exam: Soft. absent: Tenderness Results - Vital Signs Recent Vital Signs: Last Vital Signs Temp 98 F 10/18/17 06:00 Pulse 98 H 10/18/17 10:00 Resp 18 10/18/17 06:00 BP 135/82 10/18/17 06:00 Pulse Ox 98 10/18/17 06:00 - Labs Result Diagrams: 10/19/17 06:45 10/19/17 06:45 Labs: Laboratory Results - last 24 hr 10/17/17 10/17/17 10/17/17 23:05 23:05 23:05 WBC RBC Hgb Hct MCV MCH MCHC RDW Plt Count MPV Sodium Potassium Chloride Carbon Dioxide Anion Gap BUN Creatinine Est GFR ( Amer) Est GFR (Non-Af Amer) Random Glucose Hemoglobin A1c 13.5 H Calcium Iron 19 L TIBC 259 L % Saturation 7 L Lactate Dehydrogenase 514 Total Creatine Kinase 153 Troponin I 0.05 Triglycerides 623 H Cholesterol 230 H LDL Cholesterol Direct 90 HDL Cholesterol 35 10/18/17 10/18/1717 06:50 06:50 06:50 WBC 8.7 D RBC 3.24 L Hgb 9.3 L Hct 27.6 L MCV 85.2 MCH 28.7 MCHC 33.7 RDW 12.2 Plt Count 111 L MPV 11.7 H Sodium 135 Potassium 4.1 Chloride 107 Carbon Dioxide 21 Anion Gap 11 BUN 24 H Creatinine 1.3 Est GFR ( Amer) > 60 Est GFR (Non-Af Amer) 55 Random Glucose 227 H Hemoglobin A1c Calcium 8.5 Iron 35 L TIBC % Saturation Lactate Dehydrogenase Total Creatine Kinase Troponin I Triglycerides Cholesterol LDL Cholesterol Direct HDL Cholesterol Assessment & Plan - Assessment and Plan (Free Text) Plan: Assessment Multifocal community-acquired pneumonia R/O ACS HTN DM history of right hallux osteomyelitis S/P treatment with antibiotics 2015 Plan Started patient on Levaquin and Azactam and will follow up sputum cx, blood cx, PCT, urine Legionella Ag; reviewed CT chest follow up stress test results will monitor clinically will get xray of right foot as follow up of osteomyelitis from last year
--- NOTE | 2017-10-19 13:28 | PN ---
DATE: 10/19/2017 LOCATION: The patient is in room number 373, bed 2. REASON FOR CONSULTATION: Left upper chest and left shoulder pain, diabetes, hypertension, and unsteady gait. SUBJECTIVE: The patient denies any chest pain or shoulder pain today. Denies any shortness of breath or palpitation. PHYSICAL EXAMINATION: VITAL SIGNS: Blood pressure of 145/78, respirations of 18, pulse of 90, and temperature of 98.3. HEENT: Head is normocephalic. Eyes; pupils are normal. Conjunctivae slightly pale. NECK: JVP is low. Carotids are equal. THORAX: AP diameter normal. LUNGS: Clear. CARDIOVASCULAR: S1 and S2. ABDOMEN: Soft. No tenderness. No organomegaly. Bowel sounds are normal. EXTREMITIES: No clubbing. No cyanosis. LABORATORY DATA: WBC of 7.2, hemoglobin of 9.5, hematocrit of 28.4, and platelets of 119. Sodium of 134, potassium of 3.9, BUN of 21, and creatinine of 1.5. AST and ALT are normal. Total protein and albumin are normal. DIAGNOSTIC DATA: Carotid ultrasound showed 20% to 39% narrowing bilateral carotid, which is not significant. CT of the chest shows infiltrates suggestive of pneumonia. DIAGNOSES: Chest pain, shoulder pain, atypical pain, probably noncardiac, diabetes, hypertension, hypertriglyceridemia, hypercholesteremia, anemia, peripheral neuropathy, unsteady gait, and short episode of syncope after vomiting. CT chest suggestive of pneumonia. PLAN: Echo and IV Lexiscan stress test have been ordered. The patient will have stress test today. The patient is already on IV antibiotic, losartan, Venofer IV, Neurontin 300 mg t.i.d. and TriCor 145 mg daily. We will continue present therapy and we will follow echo and stress test from cardiac point of view. We will follow. Bro Salazar MD
--- NOTE | 2017-10-19 13:56 | PN ---
DATE: 10/19/2017 PULMONARY PROGRESS NOTE REFERRING PHYSICIAN: Dr. Rios. SUBJECTIVE: He is lying in the bed, 45 degree. Has cough, shortness of breath. No nausea. No vomiting. No diarrhea. No leg swelling. OBJECTIVE: GENERAL: In no acute distress. VITAL SIGNS: Temperature is 98, heart rate is 90, respiratory rate is 18, blood pressure is 145/78, and pulse ox is 97% on room air. HEENT: Moist mucous membranes. Crowded airway. Mallampati score is 4. NECK: Supple. No JVD. LUNGS: Has a scattered rhonchi. HEART: S1 and S2. ABDOMEN: Soft and nontender. No organomegaly. EXTREMITIES: No edema. NEUROLOGIC: Awake and alert. Follow simple commands. MEDICATIONS: He is on aspirin 325 mg daily, Azactam 1 g IV q. 8 hours, Cozaar 25 mg daily, DuoNeb q. 6 hours, insulin coverage, IV iron, Levaquin 500 mg daily, Levemir 5 units subcutaneous a.m. and at bedside, Lipitor 20 mg daily, gabapentin 300 mg three times a day, Pepcid 40 mg daily, TriCor 145 mg daily, Tylenol p.r.n. basis. LABORATORY DATA: Shows hemoglobin 9.5, hematocrit 28.4, WBC 7.2, and platelet count is 119. Sodium 134, potassium 3.9, chloride 103, bicarbonate 23, BUN 21, creatinine 1.5, glucose 235, calcium is 9.0, AST is 18, ALT is 27, alkaline phosphatase is 61. Albumin is 3.3, procalcitonin is 6.14. Microbiology; blood culture and urine culture, so far there is no growth. IMPRESSION AND PLAN: Community-acquired pneumonia, uncontrolled diabetes, hypertension, peripheral neuropathy, and may have a component of sleep apnea syndrome. Pulmonary point of view doing okay, keep head at 45 degrees. Continue antibiotics. Bronchodilator. Avoid sedative. Gastric and deep venous thrombosis prophylaxis. Thank you and we will follow with you. Bro Engle MD
--- NOTE | 2017-10-19 16:18 | CARD ---
APPROVED REPORT EXAM: Two-dimensional and M-mode echocardiogram with Doppler and color Doppler. INDICATION Hypertension/HCVD 2D DIMENSIONS Left Atrium (2D)3.7 (1.6-4.0cm)IVSd1.2 (0.7-1.1cm) LVDd3.8 (3.9-5.9cm)PWd1.2 (0.7-1.1cm) LVDs2.7 (2.5-4.0cm)FS (%) 30.1 % LVEF (%)58.1 (>50%) M-Mode DIMENSIONS Aortic Root2.60 (2.2-3.7cm)Aortic Cusp Exc.1.40 (1.5-2.0cm) Aortic Valve AoV Peak Wyabkhuo580.0cm/Lionel Peak GR.13mmHg Mitral Valve E/A ratio0.0 TDI E/Lateral E'0.0E/Medial E'0.0 Tricuspid Valve TR Peak [id number] [id number] Peak Gr.39mmHg [id number] LEFT VENTRICLE The left ventricle is normal size. There is mild concentric left ventricular hypertrophy. The left ventricular function is normal.EF-55% There is normal LV segmental wall motion. Transmitral Doppler flow pattern is Grade II-pseudonormal filling dynamics. No left ventricle thrombus noted on this study. There is no ventricular septal defect visualized. There is no left ventricular aneurysm. There is no mass noted in the left ventricle. RIGHT VENTRICLE The right ventricle is mildly dilated. There is normal right ventricular wall thickness. Systolic function of RV is mildly reduced. ATRIA The left atrium size is normal. The right atrium size is normal. The interatrial septum is intact with no evidence for an atrial septal defect. AORTIC VALVE The aortic valve is calcified and displays decreased opening. The aortic valve is moderately sclerotic. There is trace to mild aortic regurgitation. There is no aortic valvular stenosis. There is no aortic valvular vegetation. MITRAL VALVE The mitral valve is thickened but opens well. Mitral annular calcification is moderate. Mitral regurgitation is moderate. There is no mitral valve stenosis. There is no evidence of mitral valve prolapse. TRICUSPID VALVE The tricuspid valve leaflets are thickened , but open well. There is mild to moderate tricuspid regurgitation.RVSP_49 mmof Hg. There is no tricuspid valve stenosis. There is no tricuspid valve prolapse or vegetation. PULMONIC VALVE The pulmonic valve is not well visualized. GREAT VESSELS The aortic root is normal in size. The ascending aorta is normal in size. The pulmonary artery is normal. The IVC is normal in size and collapses >50% with inspiration. PERICARDIAL EFFUSION There is no pleural effusion. There is no pericardial effusion. <Conclusion> The left ventricle is normal size. There is mild concentric left ventricular hypertrophy. The right ventricle is mildly dilated. Systolic function of RV is mildly reduced. There is trace to mild aortic regurgitation. Mitral regurgitation is moderate. There is mild to moderate tricuspid regurgitation.RVSP_49 mmof Hg. The left ventricular function is normal.EF-55% There is no pericardial effusion.
[2017-10-19 18:23] VITALS: O2SAT 96
--- NOTE | 2017-10-19 20:47 | CARD ---
APPROVED REPORT Protocol: LEXISCAN Test Type: Lexiscan Sestamibi Stress Test Attending Physician: Dr. Bro Salazar Referring Physician: Dr. Ofelia Rios Test Indications: Chest Pain Height:5 ft 6 in Weight:155lbs Medications: tylenol, duoneb, aspirin, lipitor, azactam, pepcid, tricor, gabapentin, levemir, levaquin, insulin, cozaar Medical History: 67 year old male with a h/o dibetes, htn, high cholesterol, cataracts and right hand fracture Target HR: 155 bpm Resting ECG: RSR. Resting Heart Rate: 84 bpm Resting Blood Pressure: 138/82mmHg Submaximum (85%): 132 bpm PROCEDURE Pharmacologic stress testing was performed using 0.4mg per 5ml of regadenoson given intravenously over 7-10 seconds. POST EXERCISE Reason for Termination: Protocol completed Target HR: No Max HR: 90 bpm 63% of Maximum Predicted HR: 155 bpm Exercise duration: 01:00 min:sec, 0 Stage Exercise capacity: 1.0METs Max Blood Pressure: 142/74mmHg Blood Pressure response to exercise: normal resting BP - appropriate response Heart Rate response to exercise: appropriate Chest Pain: No, none Angina index: 0 Arrhythmia: No, none ST Change: No, none Deviation: 0 mm INTERPRETATION Stress EKG Conclusion: IV LEXISCAN NUCLEAR STRESS TEST NEGATIVE FOR CHEST PAIN AND NEGATIVE FOR ST-T CHANGES. NUCLEAR SCAN REPORT PENDING. Signed by Bro Salazar Electronically Approved: 10/19/2017 11:05:17 EXAM: Myocardial Perfusion REST/STRESS Stress Test Type: Pharmacologic Imaging Protocol Rest Spect myocardial perfusion imaging was performed in supine position 45 minutes following the injection of 10.5 mCi of Tc-99 Myoview. At peak stress, the patient was injected intravenously with 30.9mCi of Tc-99 tetrofosmin after an infusion time of 0 minutes and 10 seconds. Gated Stress Spect was performed 70 minutes after intravenous Tc-99 Myoview injection. The images were gated to evaluate regional wall motion and calculate ventricular ejection fraction.Images were reconstructed using backfilter projection method in short horizontal and verticle long axis. Spect slices were generated. LV Perfusion The quality of the study is good. The left ventricle is within normal limits in size. The right ventricle is unremarkable. The lung uptake is normal. The distribution of tracer reveals mildly and diffusely decreased perfusion in the inferior wall on the stress study. The remainder of the LV myocardium is unremarkable. The rest myocardial perfusion study shows no significant change. Wall Motion Wall motion study shows good contractility of the left ventricle. LVEF = 73%. Conclusion 1. Essentially normal SPECT myocardial perfusion study. 2. Fixed, inferior defect is most likely due to diaphrgmatic attenuation. 3. Normal gated wall motion and thicknening of the left ventricle.
[2017-10-20] MEDS: Albuterol-Ipratrop 3 mg / 0.5 (3 ml) UD IH SCH ×3 (01:38→13:21)
--- NOTE | 2017-10-20 02:35 | PN ---
SUBJECTIVE: The patient is a 67-year-old male. The patient is seen and examined at the bedside, looking comfortable. He just came back from stress test. No nausea, vomiting, or diarrhea. No fever, no chills. No headache or dizziness. PHYSICAL EXAMINATION: VITAL SIGNS: Temperature 98, heart rate 90, respiratory rate 18, blood pressure 145/78, pulse oximetry 97% on room air. HEENT: Head is normocephalic, atraumatic. Eyes: PERRLA. Extraocular movements intact. Conjunctivae clear. Nose patent. Mucous membranes are moist. NECK: Supple. No carotid bruits, JVD, or thyromegaly. CHEST: Bilaterally symmetrical. HEART: S1 and S2 positive. LUNGS: Clear to auscultation. ABDOMEN: Soft. Bowel sounds are present. No organomegaly. EXTREMITIES: No edema. No cyanosis. NEUROLOGIC: The patient is awake and alert. Follows simple commands. MEDICATIONS: Aspirin, Azactam, Cozaar, DuoNeb, Levaquin, Levemir, Lipitor, gabapentin, Pepcid, TriCor, Tylenol. LABORATORY DATA: Hemoglobin 9.5, hematocrit 28.4, white blood cells 7.2, platelets 119. Sodium 134, potassium 3.9, BUN 21, creatinine 1.5, glucose 235, AST 18, ALT 27; urine culture, so far no growth. ASSESSMENT AND PLAN: Mr. Cristopher Lugo is a 67-year-old male, who has community-acquired pneumonia, mainly aspiration pneumonia, uncontrolled diabetes mellitus, insulin-requiring, type 2, and peripheral neuropathy. Maybe has sleep apnea syndrome. Continue antibiotics, bronchodilators, and gastric and deep venous thrombosis prophylaxis. stress test today reviewed by me. He was seen by Dr. Salazar and Dr. Wei of Infectious Disease. Looks like multifocal community-acquired pneumonia, rule out acute coronary syndrome, hypertension, history of right hallux osteomyelitis status post treatment with antibiotics in October 2016. The patient is getting Levaquin and Azactam. Follow up sputum culture. Urine for Legionella antigen. Monitor clinically. Get x-ray of the right foot as followup osteomyelitis from the last year. We will follow up. Ofelia Rios MD MTDD
[2017-10-20] MEDS: Aztreonam 1 Gm in NS 100mL 100 ML IVPB SCH (05:44)
[2017-10-20] MEDS: Insulin Reg-LOW-Coverage SC SCH ×2 (08:32→12:23)
[2017-10-20 09:08] LABS: BASO # 0.01 K/mm3 (0.0-2.0); BASO % 0.2 % (0.0-3.0); EOS # 0.1 (0.0-0.7); EOS % 1.6 % (1.5-5.0); GRAN # 3.66 (1.4-6.5); GRAN % 63.4 % (50.0-68.0); HEMATOCRIT 31.5 % (42.0-52.0); LYMPH # 1.5 (1.2-3.4); LYMPH % 25.1 % (22.0-35.0); MEAN CELL VOLUME 86.5 fl (80.0-105.0); MEAN CORPUSCULAR HEMOGLOBIN 29.1 pg (25.0-35.0); MEAN CORPUSCULAR HGB CONC 33.7 g/dl (31.0-37.0); MONO # 0.6 (0.1-0.6); MONO % 9.7 % (1.0-6.0); RED CELL DISTRIBUTION WIDTH 12.3 % (11.5-14.5); WHITE BLOOD COUNT 5.8 10^3/ul (4.5-11.0)
[2017-10-20 09:21] LABS: ALB/GLOB RATIO 1.2 (1.1-1.8); ALKALINE PHOSPHATASE 72 U/L (38-126); ALT/SGPT 32 U/L (7-56); AST/SGOT 19 U/L (17-59); BILIRUBIN,TOTAL 0.9 mg/dL (0.2-1.3); BLOOD UREA NITROGEN 17 mg/dL (7-21); CALCIUM 9.8 mg/dL (8.4-10.5); CARBON DIOXIDE 25 mmol/L (21-33); CHLORIDE 105 mmol/L (98-107); GFR AFRICAN-AMERICAN > 60; GLUCOSE,RANDOM 231 mg/dL (70-110); MAGNESIUM 1.9 mg/dL (1.7-2.2); POTASSIUM 4.4 mmol/L (3.6-5.0); SODIUM 140 mmol/L (132-148)
[2017-10-20] MEDS ORDERED: levoFLOXacin 750 mg in D5W 750 MG/150 ML BAG IVPB SCH (10:00)
[2017-10-20] MEDS: Insulin Detemir 100 units/ml Vial (Levemir) SC SCH (11:14)
[2017-10-20 11:55] VITALS: BP 172/95; PULSE 20; RESP 93; TEMP 97.2
--- NOTE | 2017-10-20 13:46 | RAD ---
PROCEDURE: Right Foot Radiographs. HISTORY: rule out osteomyelitis COMPARISON: None. FINDINGS: BONES: Bone alignment and mineralization are normal. There is no acute displaced fracture or bone destruction. JOINTS: Normal. SOFT TISSUES: Normal. OTHER FINDINGS: Atherosclerotic vascular calcifications are present. IMPRESSION: No acute fracture or bone destruction.
--- NOTE | 2017-10-20 17:37 | CP.PCM.PN ---
Subjective - Date & Time of Evaluation Date of Evaluation: 10/20/17 Time of Evaluation: 10:45 - Subjective Subjective: Comfortable, breathing better, no fevers, no nausea, no diarrhea, cough has improved. Objective - Vital Signs/Intake and Output Vital Signs (last 24 hours): Temp Pulse Resp BP Pulse Ox 97.2 F L 20 L 93 H 172/95 H 96 10/20/17 11:54 10/20/17 11:54 10/20/17 11:54 10/20/17 11:54 10/20/17 06:00 Intake and Output: 10/20/17 10/20/17 06:59 18:59 Intake Total 740 840 Output Total 600 Balance 740 240 - Labs Labs: 10/20/17 08:55 10/20/17 08:55 PT 11.4 SECONDS (9.4-12.5) 10/17/17 18:05 INR 1.04 (0.93-1.08) 10/17/17 18:05 APTT 30.5 Seconds (25.1-36.5) 10/17/17 18:05 - Constitutional Appears: Non-toxic - Head Exam Head Exam: NORMAL INSPECTION - ENT Exam ENT Exam: Mucous Membranes Moist - Neck Exam Neck Exam: absent: Lymphadenopathy, Meningismus - Respiratory Exam Respiratory Exam: Decreased Breath Sounds, Rales (at the left base) - Cardiovascular Exam Cardiovascular Exam: +S1, +S2 - GI/Abdominal Exam GI & Abdominal Exam: Soft. absent: Tenderness Assessment and Plan - Assessment and Plan (Free Text) Plan: Assessment Multifocal community-acquired pneumonia, clinically improving HTN DM history of right hallux osteomyelitis S/P treatment with antibiotics 2015 Plan blood cx are negative, PCT is elevated, urine Legionella Ag is pending; reviewed CT chest continue Levaquin to complete 5-7 days of therapy will monitor clinically
--- NOTE | 2017-10-20 18:11 | PN ---
DATE: 10/20/2017 LOCATION: The patient is in room 373, bed 2. REASON FOR CONSULTATION: Left upper chest and left shoulder pain, diabetes, hypertension, and unsteady gait, on admission found to have pneumonia. SUBJECTIVE: The patient lying flat in bed without chest pain, shortness of breath, and the patient states off and on, he gets cough. No palpitations. PHYSICAL EXAMINATION: VITAL SIGNS: Blood pressure 130/70, respirations 20, pulse 85, and temperature 98.2. HEENT: Head is normocephalic. Eyes; pupils are normal. Conjunctivae slightly pale. NECK: JVP is low. Carotids are equal. THORAX: AP diameter normal. LUNGS: Clear. CARDIOVASCULAR: S1 and S2. ABDOMEN: Soft. No tenderness. No organomegaly. Bowel sounds are normal. EXTREMITIES: No clubbing. No cyanosis. LABORATORY DATA: WBC 5.8, hemoglobin of 10.6, hematocrit 31.5, and platelets 139. Sodium 140, potassium 4.4, BUN 17, creatinine 1.3, calcium 9.8, magnesium 1.9. AST and ALT are normal. Total protein and albumin are normal. DIAGNOSTIC DATA: The patient has stress test 10/19/2017, which was normal with ejection fraction of 73%. Echocardiogram was done on 10/19/2017 showed normal size left ventricle, mild concentric left ventricular hypertrophy. Right ventricle is mildly dilated. Systolic function of right ventricle is mildly reduced. Trace to mild aortic mitral regurgitation is moderate, [id number] tricuspid regurgitation with RVSP 49 mmHg. LV ejection fraction is normal with 55%. DIAGNOSES: Left upper chest pain, shoulder pain, atypical from cardiac origin, stress test negative, hypertension, hypertriglyceridemia, hypercholesteremia, anemia, peripheral neuropathy, unsteady gait, and status post short episode of syncope after vomiting. Pneumonia had shown on CT of the chest. Echo findings described above. PLAN: Continue aspirin 325 mg daily, losartan 25 mg daily, Levaquin 750 mg daily, Lipitor 20 mg daily, and gabapentin 300 mg p.o. t.i.d. We will follow. Bro Salazar MD
== END 2017-10-20 16:22 | DRG 178 ==
LOC: ED 16:47 → ERH 20:19 → 3RSO 23:19
PROVIDERS: ADMIT Internal Medicine; ATTEND Internal Medicine
DX: J69.0 Pneumonitis due to inhalation of food and vomit (principal); J98.11 Atelectasis; E11.42 Type 2 diabetes mellitus with diabetic polyneuropathy; E11.65 Type 2 diabetes mellitus with hyperglycemia; D50.9 Iron deficiency anemia, unspecified; E78.00 Pure hypercholesterolemia, unspecified; E78.1 Pure hyperglyceridemia; I10 Essential (primary) hypertension; E78.5 Hyperlipidemia, unspecified; D16.9 Benign neoplasm of bone and articular cartilage, unspecified; Z79.4 Long term (current) use of insulin; Z79.82 Long term (current) use of aspirin; Z79.899 Other long term (current) drug therapy; Z86.73 Personal history of transient ischemic attack (TIA), and cerebral infarction without residual deficits; Z88.0 Allergy status to penicillin; R40.2412 Glasgow coma scale score 13-15, at arrival to emergency department; R26.81 Unsteadiness on feet; N28.9 Disorder of kidney and ureter, unspecified; Z86.19 Personal history of other infectious and parasitic diseases; G47.30 Sleep apnea, unspecified

== ENCOUNTER 2017-10-20 16:22 | Inpatient (IN) | payer OTHER ==
[2017-10-20 17:33] VITALS: BMI 24.7
[2017-10-20] MEDS: Insulin Reg-LOW-Coverage SC SCH ×2 (18:07→22:15)
[2017-10-20] MEDS: Albuterol-Ipratrop 3 mg / 0.5 (3 ml) UD IH SCH (20:38)
[2017-10-20] MEDS: Insulin Detemir 100 units/ml Vial (Levemir) SC SCH (22:23)
[2017-10-20] MEDS ORDERED: Pneumococcal 23-Valent Vaccine IM ONE (22:53)
[2017-10-20] MEDS ORDERED: Influenza Vaccine 60 mcg/0.5 mL SYR (4YR UP) IM ONE (22:53)
[2017-10-21] MEDS: Albuterol-Ipratrop 3 mg / 0.5 (3 ml) UD IH SCH ×4 (01:44→20:00)
--- NOTE | 2017-10-21 04:53 | CON ---
DATE: 10/20/2017 PULMONARY CONSULTATION REFERRING PHYSICIAN: Ofelia Rios MD REASON FOR CONSULTATION: Pneumonia, may have sleep apnea syndrome. HISTORY OF PRESENT ILLNESS: This is a 67-year-old gentleman seen by me in acute side of the hospital with uncontrolled diabetes, has a history of bilateral lower extremity paresthesias with imbalanced gait, seen by Neurology. CT head was unremarkable, MRI was unremarkable, found to have a left lung pneumonia. Stress test was unremarkable. Presently admitted to for continued care. He does have snoring, daytime sleepy and tired. No nausea, no vomiting, no diarrhea. PAST MEDICAL HISTORY: Diabetes, hypertension, and peripheral neuropathy. ALLERGIES: PENICILLIN, DEVELOPED ITCHING. FAMILY HISTORY: No significant cardiopulmonary disease reported. SOCIAL HISTORY: Nonsmoker, nondrinker. MEDICATIONS: He is on aspirin 325 mg daily, Cozaar 25 mg daily, DuoNeb q. 6 hours, insulin coverage, iron sucrose 100 mg daily, Levaquin 750 mg daily, Levemir 5 units subcu a.m. and at bedtime, Lipitor 20 mg daily, gabapentin 300 mg 3 times a day, Pepcid 40 mg daily, TriCor 145 mg daily, and Tylenol p.r.n. basis. REVIEW OF SYSTEMS: No headache. No rhinitis. Admits to having snoring, daytime sleepy and tired, has some cough. No nausea, no vomiting, no diarrhea. Has leg pain. PHYSICAL EXAMINATION: GENERAL: Sitting side of the bed, no acute distress. VITAL SIGNS: Temperature is 98, heart rate is 90, respiratory rate is 20, blood pressure 172/95, pulse ox 93% on room air. HEENT: Moist mucous membranes. Crowded airway. Mallampati score is 4. NECK: Supple. No JVD. LUNGS: Scattered rhonchi. HEART: S1 and S2. ABDOMEN: Soft, nontender. No organomegaly. EXTREMITIES: No edema. NEUROLOGIC: Awake, alert, and follows simple commands. LABORATORY DATA: Shows hemoglobin 10.6, hematocrit 31.5, WBC 5.8, platelet is 139. Sodium 140, potassium 4.4, chloride 105, bicarbonate 25, BUN 17, creatinine 1.3, glucose 231, calcium 9.8, magnesium 1.9, AST 19, ALT 32, alk phos is 72. C-reactive protein greater than 15. Albumin is 3.9, procalcitonin 2.34. Microbiology; blood culture and urine culture, so far there is no growth. Myocardial stress test done yesterday shows essentially normal SPECT myocardial perfusion study, fixed inferior defect is most likely due to diaphragmatic attenuation, normal gated wall motion, and thickening of left ventricle. IMPRESSION AND PLAN: Community-acquired pneumonia, uncontrolled diabetes, peripheral neuropathy, hypertension, may have a component of sleep apnea syndrome. I had a long discussion with the patient and family at bedside, guided him about diabetes and its consequences. The patient needs to lose weight, start exercise, modified diet. Also recommended sleep study upon discharge as an outpatient. Follow up x-ray to assure the improvement of pneumonia. Thank you, and we will follow with you. Bro Engle MD
[2017-10-21] MEDS: levoFLOXacin 750 mg in D5W 750 MG/150 ML BAG IVPB SCH (05:24)
[2017-10-21] MEDS ORDERED: levoFLOXacin 750 mg in D5W 150 ML BAG IVPB SCH (06:00)
[2017-10-21] MEDS: Insulin Reg-LOW-Coverage SC SCH ×4 (06:51→21:36)
[2017-10-21 07:47] LABS: EOS # 0.1 (0.0-0.7); EOS % 2.8 % (1.5-5.0); GRAN # 3.21 (1.4-6.5); HEMATOCRIT 29.5 % (42.0-52.0); LYMPH # 1.2 (1.2-3.4); MEAN CELL VOLUME 87.3 fl (80.0-105.0); MEAN CORPUSCULAR HEMOGLOBIN 28.7 pg (25.0-35.0); MEAN CORPUSCULAR HGB CONC 32.9 g/dl (31.0-37.0); MEAN PLATELET VOLUME 11.2 fl (7.0-11.0); MONO # 0.6 (0.1-0.6); MONO % 11.2 % (1.0-6.0); RED CELL DISTRIBUTION WIDTH 12.3 % (11.5-14.5); WHITE BLOOD COUNT 5.1 10^3/ul (4.5-11.0)
[2017-10-21 08:17] LABS: ALB/GLOB RATIO 1.2 (1.1-1.8); BILIRUBIN,TOTAL 0.7 mg/dL (0.2-1.3); CALCIUM 9.4 mg/dL (8.4-10.5); POTASSIUM 4.1 mmol/L (3.6-5.0); TOTAL PROTEIN 6.3 g/dL (5.8-8.3)
[2017-10-21] MEDS: Insulin Detemir 100 units/ml Vial (Levemir) SC SCH ×2 (09:22→21:37)
--- NOTE | 2017-10-21 23:14 | PN ---
PULMONARY PROGRESS NOTE DATE: 10/21/2017 REFERRING PHYSICIAN: Dr. Rios. SUBJECTIVE: He is sitting side of the bed, family is at bedside. Night was unremarkable. No headache. No rhinitis. No nausea, vomiting or diarrhea. No leg pain or leg swelling. Has a wide based gait, unsteady on the feet. OBJECTIVE: GENERAL: In no acute distress. VITAL SIGNS: Temperature is 98, heart rate is 80, respiratory rate is 20, blood pressure 160/90, pulse ox 99% on room air. HEENT: Moist mucous membrane. Crowded airway. Mallampati score is IV. NECK: Supple. No JVD. LUNGS: Has a fair airflow with rhonchi. HEART: S1 and S2. ABDOMEN: Soft and nontender. No organomegaly. EXTREMITIES: No edema. NEUROLOGICAL: Awake and alert. Follows simple commands. MEDICATIONS: He is on aspirin 325 mg daily, Cozaar 25 mg twice a day, DuoNeb q. 6 hours, insulin coverage, iron IV, Levaquin 750 mg daily, Levemir 5 units subcutaneous a.m. and at bedtime, Lipitor 20 mg daily, gabapentin 300 mg three times a day, Pepcid 40 mg daily, TriCor 145 mg daily, Tylenol p.r.n., vitamin B 100 mg daily. LABORATORY DATA: Shows hemoglobin 9.7, hematocrit 29.5, WBC 5.1, and platelet is 157. Sodium 137, potassium 4.1, chloride 103, bicarbonate is 25, BUN 21, creatinine 1.5, glucose 212, calcium is 9.4, AST 23, ALT 31, alkaline phosphatase is 61, albumin is 3.4. IMPRESSION AND PLAN: Community-acquired pneumonia, uncontrolled diabetes, peripheral neuropathy, hypertension, and may have a sleep apnea syndrome, may have a Wernicke syndrome, history of excessive alcohol use. Case discussed with the family. I spoke to Dr. Rios. I agree with adding thiamine 100 mg daily. The patient and family advised to stop alcohol abuse. Will benefit from sleep study as an outpatient. Continue antibiotics. Continue therapy. Thank you and we will follow with you. Bro Engle MD
[2017-10-22] MEDS: Albuterol-Ipratrop 3 mg / 0.5 (3 ml) UD IH SCH ×4 (01:45→19:33)
--- NOTE | 2017-10-22 02:33 | CON ---
DATE: 10/21/2017 LOCATION: The patient was seen earlier this morning in room 304. CHIEF COMPLAINT: Weakness times several days. HISTORY OF PRESENT ILLNESS: This is a 67-year-old male with past medical history significant for diabetes, hypertension, right hallux osteomyelitis, was treated with antibiotics in 10/2016, and admitted to the acute care. The patient had a diagnosis of multifocal community-acquired pneumonia, history of hypertension and diabetes, and history of osteomyelitis, was given Levaquin and Azactam, now transferred to transitional care for physical therapy and completion of therapy. REVIEW OF SYSTEMS: Reveals the patient chest pain, shortness of breath, there is weakness. No nausea or vomiting at this point and no history of blurry vision. PAST MEDICAL HISTORY: Significant for diabetes mellitus, hypertension, right hallux osteomyelitis, and cataracts. PAST SURGICAL HISTORY: Significant for cataract surgery. The patient also has high cholesterol. MEDICATIONS: Reviewed. PHYSICAL EXAMINATION: VITAL SIGNS: The patient's temperature is 98, blood pressure is 150/80, respiratory rate 20, and heart rate of 93. HEENT: Unremarkable. NECK: Supple. LUNGS: Had decreased breath sounds. HEART: Normal S1 and S2. ABDOMEN: Soft and nontender. No rebound. No guarding. No masses. LABORATORY DATA: Reveals a white count of 5.1, hemoglobin of 9, platelets of 157, sed rate of 92, BUN of 21, creatinine of 1.5, procalcitonin is 2.34. Blood cultures are negative. Urine cultures are negative. X-rays of the foot are noted. ASSESSMENT AND PLAN: This is a 67-year-old male with diabetes, hypertension, high cholesterol, cataracts, with a history of right hallux osteomyelitis with, 1. Multifocal community-acquired pneumonia, which is improving, increase of hypertension and diabetes with negative blood cultures. His procalcitonin is elevated and now on Levaquin with complete 5 to 7 days of Levaquin. Review of medications confirms the patient's Levaquin to be active. If the patient is able to tolerate p.o., we will switch to p.o. Levaquin. Microbiology is reviewed, negative blood cultures, negative urine cultures and the patient tolerating the antibiotic well. Fredy Samuel MD
[2017-10-22] MEDS: levoFLOXacin 750 mg in D5W 750 MG/150 ML BAG IVPB SCH (05:14)
[2017-10-22] MEDS: Insulin Reg-LOW-Coverage SC SCH ×4 (06:51→21:13)
[2017-10-22] MEDS: Insulin Detemir 100 units/ml Vial (Levemir) SC SCH ×2 (11:09→21:13)
--- NOTE | 2017-10-22 14:50 | PN ---
DATE: 10/22/2017 SUBJECTIVE: The patient is in bed in no acute distress, nontoxic. PHYSICAL EXAMINATION: VITAL SIGNS: Temperature is 98, blood pressure is 160/90, respiratory rate of 20, heart rate of 93. HEENT: Examination of HEENT is unremarkable. NECK: Supple. LUNGS: Have decreased breath sounds. LABORATORY DATA: This laboratory examination reveals a white count of 5.1, hemoglobin of 9, platelets of 157. Chemistries reveals a BUN of 21, creatinine of 1.5. Microbiology is noted. ASSESSMENT AND PLAN: A 67-year-old male seen in room 304 with diabetes mellitus, hypertension, high cholesterol, cataract, history of right hallux osteomyelitis with multifocal community-acquired pneumonia which is improving in case of diabetes and hypertension. Negative cultures, may switch to p.o. Levaquin from IV Levaquin when the patient is able to tolerate p.o. We will follow with you. Fredy Samuel MD
[2017-10-23] MEDS: Albuterol-Ipratrop 3 mg / 0.5 (3 ml) UD IH SCH ×4 (01:18→19:34)
[2017-10-23] MEDS: levoFLOXacin 750 mg in D5W 750 MG/150 ML BAG IVPB SCH (05:18)
--- NOTE | 2017-10-23 05:28 | PN ---
DATE: 10/22/2017 SUBJECTIVE: This is a 67-year-old male. Patient was seen and examined on 10/22/2017. Sitting on the bedside, having regular clothes, getting physical therapy, complaining about constipation. I ordered some laxative. No nausea, vomiting, or diarrhea. No hematuria or hematochezia. No swelling of the legs. No chest pain. No palpitations. PHYSICAL EXAMINATION: VITAL SIGNS: Temperature 98, blood pressure 160/90, respiratory rate 20, and heart rate 93. HEENT: Head: Normocephalic, atraumatic. Eyes: PERRLA. Extraocular muscles are intact. Conjunctivae clear. Nose patent. Mucous membranes moist. NECK: Supple. No carotid bruit, JVD, or thyromegaly. CHEST: Bilaterally symmetrical. HEART: S1 and S2 positive. LUNGS: Clear to auscultation. ABDOMEN: Soft. Bowel sounds present. No organomegaly. EXTREMITIES: No edema. No cyanosis. NEUROLOGIC: Patient is awake and alert. Moving all four extremities. No focal deficits. LABORATORY DATA: White blood cells 5.1, hemoglobin 9.0, platelet 157. BUN 21, creatinine 1.5. Microbiology is noted by Infectious Diseases. ASSESSMENT AND PLAN: Mr. Cristopher Lugo is a 67-year-old male with constipation, laxatives given; has diabetes mellitus, insulin dependent, not controlled; hypertension; hypercholesterolemia; cataract; history of right hallux osteomyelitis with multifocal community-acquired pneumonia, which is improving. In case of diabetes and hypertension, these are getting better. IV antibiotics may be switched to Levaquin p.o. when patient is able to be discharged. Meanwhile, continue physical therapy, repeat labs. We will follow up. Ofelia Rios MD
[2017-10-23] MEDS: Insulin Reg-LOW-Coverage SC SCH ×4 (07:00→22:00)
[2017-10-23] MEDS: Insulin Detemir 100 units/ml Vial (Levemir) SC SCH ×2 (11:37→21:59)
--- NOTE | 2017-10-23 11:45 | HP ---
CHIEF COMPLAINT: Altered mental status, decondition, coughing, shortness of breath. HISTORY OF PRESENT ILLNESS: Mr. Mcnally is a 57-year-old male with past medical history of insulin-dependent uncontrolled diabetes mellitus, ataxia, peripheral neuropathy, went to different hospitals, but was discharged from the ER, came to [facility] Emergency Room. We admitted the patient. Patient looks like he has pneumonia, multilobular, community acquired. According to family, patient has episodes of nausea, vomiting, also may be aspirating them. We called ID consult. Antibiotic started. Patient improved. White blood cell improved. Because of patient's ataxia, neurology consult was called. According to them, patient had just peripheral neuropathy. CAT scan of the head, MRI of the head, bilateral carotid Doppler of the neck was done, reviewed by me, A stress test was done. That is reviewed by me. Now, patient is advised transfer to TCU for continuity of care, physical therapy for ataxia and completion of antibiotics and deconditioning. According to patient, he has snoring, daytime sleepiness, and tired, but no nausea, vomiting, diarrhea. No fever, no chills. PAST MEDICAL HISTORY: Insulin-dependent diabetes mellitus, hypertension, peripheral neuropathy as above. ALLERGIES: PATIENT IS ALLERGIC TO PENICILLIN. FAMILY HISTORY: Father and mother, noncontributory. HABITS: Alcohol, denied. Substance abuse, denied. Smoking, denied. As per patient, he is drinking socially. MEDICATIONS: Aspirin, Cozaar, DuoNeb, insulin, sucrose, Levaquin, Levemir, Lipitor, gabapentin, Pepcid, TriCor, Tylenol. REVIEW OF SYSTEMS: Patient is examined on the beside. Family was around. Looking comfortable. No nausea, vomiting, diarrhea. No hematuria or hematochezia. No swelling of the legs. No chest pain. No palpitation. No headache. No dizziness. No fever, no chills. PHYSICAL EXAMINATION: VITAL SIGNS: Temperature 98.1, pulse 80, blood pressure 150/90, respiratory rate 20, oxygenation 99. HEENT: Head, normocephalic and atraumatic. Eyes, PERRLA. Extraocular muscles intact. Conjunctivae clear. Nose patent. Mucous membranes moist. NECK: Supple. No carotid bruit. No JVD or thyromegaly. CHEST: Bilaterally symmetrical. HEART: S1, S2 positive. LUNGS: Clear to auscultation. ABDOMEN: Soft. Positive bowel sounds. No organomegaly. EXTREMITIES: No edema, no cyanosis. NEUROLOGIC: The patient is awake, alert. Moving all 4 extremities. No focal deficits. LABORATORY DATA: White blood count 5.1, hemoglobin 9.7, hematocrit 29.5, platelets 157. Sodium 137, potassium 4.1, BUN 21, creatinine 1.5, glucose is 265. Liver function tests within normal limits. ASSESSMENT AND PLAN: The patient is a 57-year-old male with anemia, insulin-dependent diabetes mellitus, uncontrolled, peripheral neuropathy, obesity, obstructive sleep apnea syndrome, hypertension, community-acquired pneumonia, rule out aspiration pneumonia because of the episodes of nausea and vomiting. Length of time discussion done with the patient and patient's family on the bedside. All questions answered. Diabetic education and family medicine physician assistant education given. Need to loose weight. Exercise and modify diet. Urge to quite ethnol , r/o worneke kriskof syndrome, ataxia. We will start thiamine. We will follow up. Ofelia Rios MD SHANNON
[2017-10-23] MEDS: POLYETHYLENE GLYCOL 3350 17 GM/Dose PACKET PO SCH (12:11)
--- NOTE | 2017-10-23 15:42 | CP.PCM.PN ---
Subjective - Date & Time of Evaluation Date of Evaluation: 10/23/17 Time of Evaluation: 11:10 - Subjective Subjective: Comfortable, not in distress, afebrile, breathing well, no more cough, no shortness of breath at rest, no nausea. Eating well. Objective - Vital Signs/Intake and Output Vital Signs (last 24 hours): Temp Pulse Resp BP Pulse Ox 97.7 F 90 20 129/84 98 10/22/17 16:00 10/22/17 16:00 10/22/17 16:00 10/22/17 16:00 10/22/17 16:00 - Medications Medications: Current Medications Acetaminophen (Tylenol 325mg Tab) 650 mg PO Q4H PRN; Protocol PRN Reason: Pain, moderate (4-7) Albuterol/Ipratropium (Duoneb 3 Mg/0.5 Mg (3 Ml) Ud) 3 ml IH [id number] WILLAM PRN Reason: Protocol Last Admin: 10/23/17 07:45 Dose: 3 ml Aspirin (Aspirin) 325 mg PO DAILY WILLAM PRN Reason: Protocol Last Admin: 10/22/17 09:51 Dose: 325 mg Atorvastatin Calcium (Lipitor) 20 mg PO DIN WILLAM PRN Reason: Protocol Last Admin: 10/22/17 17:06 Dose: 20 mg Docusate Sodium (Colace) 200 mg PO BID WILLAM PRN Reason: Protocol Last Admin: 10/22/17 18:27 Dose: 200 mg Famotidine (Pepcid) 40 mg PO HS WILLAM PRN Reason: Protocol Last Admin: 10/22/17 21:12 Dose: 40 mg Fenofibrate (Tricor) 145 mg PO DAILY WILLAM PRN Reason: Protocol Last Admin: 10/22/17 09:52 Dose: 145 mg Gabapentin (Neurontin) 300 mg PO TID WILLAM PRN Reason: Protocol Last Admin: 10/22/17 17:05 Dose: 300 mg Levofloxacin/Dextrose (Levaquin 750mg) 750 mg in 150 mls @ 100 mls/hr IVPB 0600 WILLAM Last Admin: 10/23/17 05:18 Dose: 100 mls/hr Insulin Detemir (Levemir) 5 unit SC AMHS WILLAM PRN Reason: Protocol Last Admin: 10/22/17 21:13 Dose: 5 unit Insulin Human Regular (Humulin R Low) 0 units SC ACHS WILLAM PRN Reason: Protocol Last Admin: 10/23/17 07:00 Dose: 3 units Losartan Potassium (Cozaar) 25 mg PO BID WILLAM PRN Reason: Protocol Last Admin: 10/22/17 17:06 Dose: 25 mg Thiamine HCl (Vitamin B1 Tab) 100 mg PO DAILY [facility] Last Admin: 10/22/17 11:09 Dose: 100 mg - Labs Labs: 10/21/17 06:55 10/21/17 06:55 - Constitutional Appears: Non-toxic - Head Exam Head Exam: NORMAL INSPECTION - ENT Exam ENT Exam: Mucous Membranes Moist - Neck Exam Neck Exam: absent: Meningismus - Respiratory Exam Respiratory Exam: Decreased Breath Sounds - Cardiovascular Exam Cardiovascular Exam: +S1, +S2 - GI/Abdominal Exam GI & Abdominal Exam: Soft. absent: Tenderness Assessment and Plan - Assessment and Plan (Free Text) Plan: Assessment Multifocal community-acquired pneumonia, clinically improving HTN DM history of right hallux osteomyelitis S/P treatment with antibiotics 2015 Plan blood cx are negative, PCT is elevated; reviewed CT chest continue Levaquin to complete 5-7 days of therapy (day 5 today) will monitor clinically
--- NOTE | 2017-10-23 18:01 | CP.PCM.PN ---
<Angie Anna - Last Filed: 10/24/17 02:24> Subjective - Date & Time of Evaluation Date of Evaluation: 10/23/17 Time of Evaluation: 10:30 - Subjective Subjective: 67 yr male w/ peripheral neuropathy, DMII, HTN, Wernicke syndrome, ETOH abuse. He is in TRCU for IV abx for multifocal community acquired pneumonia and PT for ataxia. He is seen at physical therapy on exercise bike. He reports constipation. He denies any headaches, vision changes, dizziness/lightheadedness , numbness/tingling, SOB, chest pain, diarrhea, or urinary frequency. No distress noted. Objective - Vital Signs/Intake and Output Vital Signs (last 24 hours): Temp Pulse Resp BP Pulse Ox 98.8 F 85 18 121/73 96 10/23/17 16:47 10/23/17 17:56 10/23/17 16:47 10/23/17 17:56 10/23/17 16:47 - Medications Medications: Current Medications Acetaminophen (Tylenol 325mg Tab) 650 mg PO Q4H PRN; Protocol PRN Reason: Pain, moderate (4-7) Albuterol/Ipratropium (Duoneb 3 Mg/0.5 Mg (3 Ml) Ud) 3 ml IH [id number] WILLAM PRN Reason: Protocol Last Admin: 10/23/17 14:04 Dose: Not Given Aspirin (Aspirin) 325 mg PO DAILY [facility] PRN Reason: Protocol Last Admin: 10/23/17 10:51 Dose: 325 mg Atorvastatin Calcium (Lipitor) 20 mg PO DIN [facility] PRN Reason: Protocol Last Admin: 10/23/17 17:53 Dose: 20 mg Docusate Sodium (Colace) 200 mg PO BID [facility] PRN Reason: Protocol Last Admin: 10/23/17 17:53 Dose: 200 mg Famotidine (Pepcid) 40 mg PO HS [facility] PRN Reason: Protocol Last Admin: 10/22/17 21:12 Dose: 40 mg Fenofibrate (Tricor) 145 mg PO DAILY [facility] PRN Reason: Protocol Last Admin: 10/23/17 10:55 Dose: 145 mg Gabapentin (Neurontin) 300 mg PO TID [facility] PRN Reason: Protocol Last Admin: 10/23/17 17:54 Dose: 300 mg Insulin Detemir (Levemir) 5 unit SC AMHS [facility]AM PRN Reason: Protocol Last Admin: 10/23/17 11:37 Dose: 5 unit Insulin Human Regular (Humulin R Low) 0 units SC ACHS [facility]AM PRN Reason: Protocol Last Admin: 10/23/17 17:54 Dose: 2 units Lactulose (Enulose) 20 gm PO HS [facility] Levofloxacin (Levaquin) 750 mg PO 0600 [facility] Losartan Potassium (Cozaar) 25 mg PO BID [facility] PRN Reason: Protocol Last Admin: 10/23/17 17:56 Dose: 25 mg Polyethylene Glycol (Miralax) 17 gm PO DAILY [facility] Stop: 10/27/17 11:31 Last Admin: 10/23/17 12:11 Dose: 17 gm Thiamine HCl (Vitamin B1 Tab) 100 mg PO DAILY [facility] Last Admin: 10/23/17 10:54 Dose: 100 mg - Labs Labs: 10/21/17 06:55 10/21/17 06:55 - Constitutional Appears: Well - Head Exam Head Exam: ATRAUMATIC - Eye Exam Eye Exam: Normal appearance - ENT Exam ENT Exam: Mucous Membranes Moist - Neck Exam Neck Exam: Full ROM - Respiratory Exam Respiratory Exam: Clear to Ausculation Bilateral, NORMAL BREATHING PATTERN - Cardiovascular Exam Cardiovascular Exam: REGULAR RHYTHM, +S1, +S2. absent: Murmur - GI/Abdominal Exam GI & Abdominal Exam: Distended, Soft, Tenderness - Extremities Exam Extremities Exam: Full ROM, Normal Capillary Refill, Normal Inspection. absent : Joint Swelling, Pedal Edema - Back Exam Back Exam: NORMAL INSPECTION - Neurological Exam Neurological Exam: Alert, Awake, Oriented x3 - Psychiatric Exam Psychiatric exam: Normal Affect, Normal Mood - Skin Skin Exam: Dry, Intact, Normal Color, Warm Assessment and Plan (1) Pneumonia Status: Acute (2) Unsteady gait Status: Acute (3) Anemia Status: Acute (4) Hyperglycemia Status: Acute (5) ETOH abuse Status: Chronic - Assessment and Plan (Free Text) Plan: Prescribed lactulose and miralax for constipation. Encouraged pt to continue physical therapy. Consults: ID = Dr. Dasilva = blood culture neg. abn CT chest levaquin 5-7 day tx. Pulmonary = Dr. Engle = added thiamine, discussed w/ pt & family to stop ETOH intake <Ofelia Rios - Last Filed: 10/24/17 12:32> Objective - Vital Signs/Intake and Output Vital Signs (last 24 hours): Temp Pulse Resp BP Pulse Ox 97.3 F L 83 18 114/68 98 10/24/17 10:00 10/24/17 10:00 10/24/17 10:00 10/24/17 10:02 10/24/17 10:00 - Medications Medications: Current Medications Acetaminophen (Tylenol 325mg Tab) 650 mg PO Q4H PRN; Protocol PRN Reason: Pain, moderate (4-7) Albuterol/Ipratropium (Duoneb 3 Mg/0.5 Mg (3 Ml) Ud) 3 ml IH [id number] WILLAM PRN Reason: Protocol Last Admin: 10/24/17 07:45 Dose: 3 ml Aspirin (Aspirin) 325 mg PO DAILY [facility] PRN Reason: Protocol Last Admin: 10/24/17 10:03 Dose: 325 mg Atorvastatin Calcium (Lipitor) 20 mg PO DIN [facility] PRN Reason: Protocol Last Admin: 10/23/17 17:53 Dose: 20 mg Docusate Sodium (Colace) 200 mg PO BID [facility] PRN Reason: Protocol Last Admin: 10/24/17 10:04 Dose: 200 mg Famotidine (Pepcid) 40 mg PO HS [facility] PRN Reason: Protocol Last Admin: 10/23/17 21:06 Dose: 40 mg Fenofibrate (Tricor) 145 mg PO DAILY [facility] PRN Reason: Protocol Last Admin: 10/24/17 10:03 Dose: 145 mg Gabapentin (Neurontin) 300 mg PO TID [facility] PRN Reason: Protocol Last Admin: 10/24/17 10:02 Dose: 300 mg Insulin Detemir (Levemir) 5 unit SC [facility] PRN Reason: Protocol Last Admin: 10/24/17 11:00 Dose: 5 unit Insulin Human Regular (Humulin R Low) 0 units SC ACHS WILLAM PRN Reason: Protocol Last Admin: 10/24/17 06:55 Dose: 1 units Lactulose (Enulose) 20 gm PO HS [facility] Last Admin: 10/23/17 21:05 Dose: 20 gm Levofloxacin (Levaquin) 750 mg PO 0600 [facility] Last Admin: 10/24/17 05:30 Dose: 750 mg Losartan Potassium (Cozaar) 25 mg PO BID [facility] PRN Reason: Protocol Last Admin: 10/24/17 10:02 Dose: 25 mg Polyethylene Glycol (Miralax) 17 gm PO DAILY [facility] Stop: 10/27/17 11:31 Last Admin: 10/24/17 10:02 Dose: 17 gm Thiamine HCl (Vitamin B1 Tab) 100 mg PO DAILY [facility] Last Admin: 10/24/17 10:03 Dose: 100 mg - Labs Labs: 10/21/17 06:55 10/21/17 06:55 Assessment and Plan - Assessment and Plan (Free Text) Plan: pt is seen and examined at bed side , at 10/23/17 , looking comfortable , agreed all above . getting pt .anb. feeling fine , will cont. same treatment
--- NOTE | 2017-10-23 21:57 | PN ---
PULMONARY PROGRESS NOTE DATE: 10/23/2017 REFERRING PHYSICIAN: Dr. Rios. SUBJECTIVE: He is lying in the bed. Doing well in therapy. Able to walk in two stair balance. According to the patient, is improving. No nausea. No vomiting. No diarrhea. No leg pain or leg swelling. OBJECTIVE: GENERAL: In no acute distress. VITAL SIGNS: Temperature 98, heart rate is 85, respiratory rate is 18, blood pressure 121/73, and pulse ox 96% on room air. HEENT: Moist mucous membranes. Crowded airway. Mallampati score is 4. NECK: Supple. No JVD. LUNGS: Fair air flow without rhonchi. HEART: S1, S2. ABDOMEN: Soft, nontender. No organomegaly. EXTREMITIES: No edema. NEUROLOGIC: Awake and alert. Follows simple commands. MEDICATIONS: He is on aspirin 325 mg daily, Colace 200 mg twice a day, Cozaar 25 mg twice a day, DuoNeb q. 6 hour, lactulose 20 g at bedtime, insulin coverage, Levaquin 750 mg daily, Levemir 5 units subcutaneous a.m. and at bedtime, Lipitor 20 mg daily, MiraLax 17 g daily, gabapentin 300 mg three times a day, Pepcid 40 mg at bedtime, TriCor 145 mg daily, Tylenol p.r.n., vitamin B 100 mg daily. LABORATORY DATA: Reviewed and show blood sugar this morning 346. IMPRESSION AND PLAN: Community-acquired pneumonia, uncontrolled diabetes, peripheral neuropathy, hypertension, may have a sleep apnea syndrome, has a Wernicke syndrome. Pulmonary point of view, doing okay. Urge the patient to stop alcohol. Fall precaution. Continue therapy. Outpatient pulmonary function test and attend a sleep study. Thank you, and we will follow with you. Bro Engle MD
[2017-10-24] MEDS: Albuterol-Ipratrop 3 mg / 0.5 (3 ml) UD IH SCH ×4 (01:02→20:51)
[2017-10-24] MEDS: levoFLOXacin 750 MG TAB PO SCH (05:30)
[2017-10-24] MEDS: Insulin Reg-LOW-Coverage SC SCH ×4 (06:55→21:57)
[2017-10-24] MEDS: POLYETHYLENE GLYCOL 3350 17 GM/Dose PACKET PO SCH (10:02)
--- NOTE | 2017-10-24 10:56 | PN ---
PULMONARY PROGRESS NOTE DATE: 10/22/2017 REFERRING PHYSICIAN: Dr. Rios. SUBJECTIVE: He is lying in the bed, resting. Night was unremarkable. Doing well in therapy. Still has unsteady gait. No nausea or vomiting. No diarrhea. No leg swelling. OBJECTIVE: GENERAL: In no acute distress. VITAL SIGNS: Temperature 98, heart rate is 90, respiratory rate is 20, blood pressure 129/84, and pulse ox 98% on room air. HEENT: Moist mucous membranes. Crowded airway. Mallampati score is 4. NECK: Supple. No JVD. LUNGS: Fair air flow without rhonchi. HEART: S1, S2. ABDOMEN: Soft, nontender. No organomegaly. EXTREMITIES: No edema. NEUROLOGIC: Awake and alert. Follows simple commands. MEDICATIONS: He is on aspirin 325 mg daily, Colace 200 mg twice a day, Cozaar 25 mg twice a day, albuterol/Atrovent nebulizer q. 6 hours, insulin coverage, Levaquin 750 mg daily, Levemir 5 units subcutaneous a.m. and at bedtime, Lipitor 20 mg daily, gabapentin 300 mg three times a day, Pepcid 40 mg at bedtime, TriCor 145 mg daily, Tylenol p.r.n., vitamin B 100 mg daily. LABORATORY DATA: Shows no new lab is available since yesterday. IMPRESSION AND PLAN: Community-acquired pneumonia, uncontrolled diabetes, peripheral neuropathy, hypertension, may have sleep apnea syndrome, may have Wernicke syndrome, history of excessive alcohol use. Pulmonary point of view, doing okay. Keep at 45 degrees. Sleep apnea precaution. Sleep study upon discharge as outpatient. Continue thiamine. Fall precaution. Continue therapy. Thank you, and we will follow with you. Bro Engle MD
[2017-10-24] MEDS: Insulin Detemir 100 units/ml Vial (Levemir) SC SCH ×2 (11:00→21:54)
--- NOTE | 2017-10-24 13:20 | PN ---
DATE: 10/24/2017 SUBJECTIVE: The patient is seen earlier this morning. No fevers and no chills. No nausea. PHYSICAL EXAMINATION: VITAL SIGNS: On exam, temperature is 98, blood pressure is 120/70, and respiratory rate of 18. HEENT: Examination of HEENT is unremarkable. NECK: Supple. LUNGS: Have decreased breath sounds. HEART: Normal S1 and S2. GASTROINTESTINAL: Abdominal examination is soft and nontender. LABORATORY DATA: Examination reveals the patient to have white count of 5.1, hemoglobin of 9, platelets of 157, and the chemistries are noted. MEDICATIONS: Review of orders reveals the patient to be off of antibiotics. ASSESSMENT AND PLAN: This is a 67-year-old male seen earlier today in room 304 with multifocal community-acquired pneumonia, clinically improving, hypertension, diabetes and history of right hallux osteomyelitis and the blood cultures negative. He is on Levaquin day number 6, complete 7 days of antibiotics. Fredy Samuel MD
--- NOTE | 2017-10-24 21:07 | PN ---
DATE: SUBJECTIVE: The patient is a 67-year-old male. The patient was seen and examined on the bedside, looking comfortable and getting physical therapy. No nausea, vomiting, or diarrhea. No hematuria or hematochezia. No swelling of the legs. No chest pain. No palpitations. No headache or dizziness. PHYSICAL EXAMINATION VITAL SIGNS: Temperature 97.3, pulse 86, blood pressure 114/68, respiratory rate 18. HEENT: Head: Normocephalic, atraumatic. Eyes: PERRLA. Extraocular muscles are intact. Conjunctivae clear. Nose patent. Mucous membranes moist. NECK: Supple. No carotid bruit, JVD, or thyromegaly. CHEST: Bilaterally symmetrical. HEART: S1 and S2 positive. LUNGS: Clear to auscultation. ABDOMEN: Soft. Bowel sounds present. No organomegaly. EXTREMITIES: No edema. No cyanosis. NEUROLOGIC: The patient is awake and alert. Moving all four extremities. No focal deficits LABORATORY DATA: We do not have recent labs, but I reviewed old labs. Glucose 271, 303, 201 and 354. MEDICATIONS: Aspirin, Colace, Cozaar, DuoNeb, Enulose, insulin, Levaquin, Levemir, Lipitor, Neurontin, Pepcid, TriCor, Tylenol, vitamin B1. ASSESSMENT AND PLAN: Mr. Cristopher Lugo is a 67-year-old male with history of insulin-dependent diabetes mellitus type 2, not very well controlled. He was on Levemir s/c b.i.d. still on sliding scale, has multifocal community-acquired pneumonia, rule out aspiration pneumonia, clinically improving, has history of hypertension, history of right hallux osteomyelitis and blood cultures are negative. He is on Levaquin on day #6. We will complete 7 days of antibiotics, out of bed, Physical Therapy. We will follow up. Ofelia Rios MD MTDJonny
[2017-10-25] MEDS: Albuterol-Ipratrop 3 mg / 0.5 (3 ml) UD IH SCH ×4 (02:00→20:46)
--- NOTE | 2017-10-25 04:00 | PN ---
DATE: 10/24/2017 PULMONARY PROGRESS NOTE REFERRING PHYSICIAN: Dr. Rios. SUBJECTIVE: The patient is lying in the bed, head at 45 degree. Night was unremarkable. No headache. No rhinitis. No nausea, no vomiting or diarrhea. No leg pain or leg swelling. Doing well in therapy. Gait is improved according to patient. PHYSICAL EXAMINATION GENERAL: In no acute distress. VITAL SIGNS: Temperature 98, heart rate 88, respiratory rate is 18, blood pressure is 152/100, pulse oximetry 98% on room air. HEENT: Moist mucous membrane. No ulcer or thrush noted. NECK: Supple. No JVD. LUNGS: Fair airflow with some rhonchi. HEART: S1 and S2. ABDOMEN: Soft and nontender. No organomegaly. EXTREMITIES: No edema. NEUROLOGICAL: Awake and alert. Follows simple commands. MEDICATIONS: He is on aspirin 325 mg daily, Colace 200 mg twice a day, Cozaar 25 mg twice a day, DuoNeb q. 6 hours, lactulose 20 mg at bedtime, insulin coverage, Levaquin 750 mg daily, Levemir 8 units subcu a.m. and at bedtime, Lipitor 20 mg daily, MiraLax 17 g daily, Neurontin 300 mg 3 times a day, Pepcid 40 mg daily, TriCor 145 mg daily, Tylenol p.r.n., thiamin 100 mg daily. Blood sugar is 271. IMPRESSION AND PLAN: Community-acquired pneumonia, uncontrolled diabetes, peripheral neuropathy, hypertension, sleep apnea syndrome, Wernicke syndrome. Pulmonary point of view, doing okay. Continue antibiotics, bronchodilators, fall precaution. Continue therapy. As the patient is still smoking, continue thiamin. Thank you, and we will follow with you. Bro Engle MD
[2017-10-25] MEDS: Insulin Reg-LOW-Coverage SC SCH ×4 (06:46→22:38)
[2017-10-25] MEDS: levoFLOXacin 750 MG TAB PO SCH (06:47)
[2017-10-25] MEDS: Insulin Detemir 100 units/ml Vial (Levemir) SC SCH ×2 (10:22→22:37)
[2017-10-25] MEDS: POLYETHYLENE GLYCOL 3350 17 GM/Dose PACKET PO SCH (10:23)
--- NOTE | 2017-10-25 14:48 | CP.PCM.PN ---
<Angie Anna - Last Filed: 10/25/17 22:47> Subjective - Date & Time of Evaluation Date of Evaluation: 10/25/17 Time of Evaluation: 11:00 - Subjective Subjective: 67 yr male w/ peripheral neuropathy, DMII, HTN, Wernicke syndrome, ETOH abuse. He is in TRCU for IV abx for multifocal community acquired pneumonia and PT for ataxia. He is seen at bedside. He appears stronger and denies any constipation symptoms. He denies any headaches, vision changes, dizziness/ lightheadedness, numbness/tingling, SOB, chest pain, diarrhea, or urinary frequency. No distress noted. Objective - Vital Signs/Intake and Output Vital Signs (last 24 hours): Temp Pulse Resp BP Pulse Ox 98.1 F 81 18 122/71 98 10/24/17 17:34 10/25/17 10:21 10/24/17 17:34 10/25/17 10:21 10/24/17 17:34 Intake and Output: 10/25/17 10/25/17 06:59 18:59 Intake Total 420 Balance 420 - Medications Medications: Current Medications Acetaminophen (Tylenol 325mg Tab) 650 mg PO Q4H PRN; Protocol PRN Reason: Pain, moderate (4-7) Albuterol/Ipratropium (Duoneb 3 Mg/0.5 Mg (3 Ml) Ud) 3 ml IH [id number] WILLAM PRN Reason: Protocol Last Admin: 10/25/17 14:01 Dose: 3 ml Aspirin (Aspirin) 325 mg PO DAILY WILLAM PRN Reason: Protocol Last Admin: 10/25/17 10:21 Dose: 325 mg Atorvastatin Calcium (Lipitor) 20 mg PO DIN WILLAM PRN Reason: Protocol Last Admin: 10/24/17 17:25 Dose: 20 mg Docusate Sodium (Colace) 200 mg PO BID WILLAM PRN Reason: Protocol Last Admin: 10/25/17 10:21 Dose: 200 mg Famotidine (Pepcid) 40 mg PO HS WILLAM PRN Reason: Protocol Last Admin: 10/24/17 21:54 Dose: 40 mg Fenofibrate (Tricor) 145 mg PO DAILY WILLAM PRN Reason: Protocol Last Admin: 10/25/17 10:23 Dose: 145 mg Gabapentin (Neurontin) 300 mg PO TID WILLAM PRN Reason: Protocol Last Admin: 10/25/17 10:23 Dose: 300 mg Insulin Detemir (Levemir) 8 unit SC AMHS WILLAM PRN Reason: Protocol Last Admin: 10/25/17 10:22 Dose: 8 unit Insulin Human Regular (Humulin R Low) 0 units SC ACHS WILLAM PRN Reason: Protocol Last Admin: 10/25/17 06:46 Dose: 4 units Lactulose (Enulose) 20 gm PO HS [facility] Last Admin: 10/24/17 21:54 Dose: 20 gm Levofloxacin (Levaquin) 750 mg PO 0600 [facility] Last Admin: 10/25/17 06:47 Dose: 750 mg Losartan Potassium (Cozaar) 25 mg PO BID [facility] PRN Reason: Protocol Last Admin: 10/25/17 10:21 Dose: 25 mg Polyethylene Glycol (Miralax) 17 gm PO DAILY [facility] Stop: 10/27/17 11:31 Last Admin: 10/25/17 10:23 Dose: 17 gm Thiamine HCl (Vitamin B1 Tab) 100 mg PO DAILY [facility] Last Admin: 10/25/17 10:23 Dose: 100 mg - Labs Labs: 10/21/17 06:55 10/21/17 06:55 - Constitutional Appears: Well - Head Exam Head Exam: ATRAUMATIC, NORMAL INSPECTION, NORMOCEPHALIC - Eye Exam Eye Exam: EOMI, Normal appearance, PERRL - ENT Exam ENT Exam: Mucous Membranes Moist, Normal Exam - Neck Exam Neck Exam: Full ROM, Normal Inspection. absent: Lymphadenopathy - Respiratory Exam Respiratory Exam: Clear to Ausculation Bilateral, NORMAL BREATHING PATTERN - GI/Abdominal Exam GI & Abdominal Exam: Soft, Normal Bowel Sounds. absent: Tenderness - Back Exam Back Exam: NORMAL INSPECTION - Neurological Exam Neurological Exam: Alert, Awake, CN II-XII Intact, Oriented x3 - Psychiatric Exam Psychiatric exam: Normal Affect, Normal Mood - Skin Skin Exam: Dry, Intact, Normal Color, Warm Assessment and Plan (1) Pneumonia Status: Acute (2) Unsteady gait Status: Acute (3) Anemia Status: Acute (4) Hyperglycemia Status: Acute (5) ETOH abuse Status: Chronic - Assessment and Plan (Free Text) Plan: Reports relief of constipation. Encouraged pt to continue physical therapy. Consults: ID = Dr. Dasilva = blood culture neg. abn CT chest levaquin 5-7 day tx. Pulmonary = Dr. Engle = added thiamine, discussed w/ pt & family to stop ETOH intake <Ofelia Rios - Last Filed: 10/27/17 16:21> Objective - Vital Signs/Intake and Output Vital Signs (last 24 hours): Temp Pulse Resp BP Pulse Ox 97.5 F L 88 18 114/72 98 10/27/17 11:28 10/27/17 11:28 10/27/17 11:28 10/27/17 11:28 10/27/17 11:28 Intake and Output: 10/27/17 10/27/17 06:59 18:59 Intake Total 460 Balance 460 - Medications Medications: Current Medications Acetaminophen (Tylenol 325mg Tab) 650 mg PO Q4H PRN; Protocol PRN Reason: Pain, moderate (4-7) Albuterol/Ipratropium (Duoneb 3 Mg/0.5 Mg (3 Ml) Ud) 3 ml IH [id number] WILLAM PRN Reason: Protocol Last Admin: 10/27/17 13:13 Dose: 3 ml Aspirin (Aspirin) 325 mg PO DAILY [facility] PRN Reason: Protocol Last Admin: 10/27/17 10:42 Dose: 325 mg Atorvastatin Calcium (Lipitor) 20 mg PO DIN [facility] PRN Reason: Protocol Last Admin: 10/26/17 17:49 Dose: 20 mg Docusate Sodium (Colace) 200 mg PO BID [facility] PRN Reason: Protocol Last Admin: 10/27/17 10:42 Dose: 200 mg Famotidine (Pepcid) 40 mg PO HS [facility] PRN Reason: Protocol Last Admin: 10/26/17 21:58 Dose: 40 mg Fenofibrate (Tricor) 145 mg PO DAILY [facility] PRN Reason: Protocol Last Admin: 10/27/17 10:43 Dose: 145 mg Gabapentin (Neurontin) 300 mg PO TID [facility] PRN Reason: Protocol Last Admin: 10/27/17 14:36 Dose: 300 mg Insulin Detemir (Levemir) 8 unit SC AMHS WILLAM PRN Reason: Protocol Last Admin: 10/27/17 10:43 Dose: 8 unit Insulin Human Regular (Humulin R Low) 0 units SC ACHS WILLAM PRN Reason: Protocol Last Admin: 10/27/17 13:25 Dose: 3 units Lactulose (Enulose) 20 gm PO HS [facility] Last Admin: 10/26/17 21:57 Dose: 20 gm Losartan Potassium (Cozaar) 25 mg PO BID [facility] PRN Reason: Protocol Last Admin: 10/27/17 10:43 Dose: 25 mg Thiamine HCl (Vitamin B1 Tab) 100 mg PO DAILY [facility] Last Admin: 10/27/17 10:43 Dose: 100 mg - Labs Labs: 10/21/17 06:55 10/21/17 06:55 Assessment and Plan - Assessment and Plan (Free Text) Plan: pt is seen and examined at bed side . agreed all above , looking comfortable , getting pt . family was on the bed side , all qs answered , seen by pul , will f /u
--- NOTE | 2017-10-25 18:05 | PN ---
DATE: 10/25/2017 SUBJECTIVE: The patient is seen earlier this morning in room 304. No fevers. No chills. PHYSICAL EXAMINATION: VITAL SIGNS: Temperature is 98, blood pressure is 150/100, respiratory rate of 16. HEENT: Unremarkable. NECK: Supple. LUNGS: Decreased breath sounds. HEART: Normal S1, S2. ABDOMEN: Soft and nontender. LABORATORY DATA: Reveals a white count of 5.1, hemoglobin is noted. ASSESSMENT AND PLAN: This is a 67-year-old male who was seen in room 304 earlier this morning with multifocal community-acquired pneumonia, improving on Levaquin today is day #7. May discontinue the antibiotic after today. Fredy Samuel MD
[2017-10-26] MEDS: Albuterol-Ipratrop 3 mg / 0.5 (3 ml) UD IH SCH ×4 (03:15→20:51)
[2017-10-26] MEDS: levoFLOXacin 750 MG TAB PO SCH (05:21)
--- NOTE | 2017-10-26 06:16 | PN ---
DATE: 10/25/2017 REFERRING PHYSICIAN: Dr. Rios. SUBJECTIVE: The patient is sitting up in the chair. Night was unremarkable. I spoke to nursing staff. He is getting better balance on his feet. No chest pain. No nausea, no vomiting. No diarrhea. No leg pain. No leg swelling. OBJECTIVE: GENERAL: In no acute distress. VITAL SIGNS: Temperature is 98, heart rate is 83, respiratory rate is 20, blood pressure is 159/87, and pulse oximetry is 98% on room air. HEENT: Moist mucous membranes. Small oral cavity. Crowded airway. NECK: Supple. No JVD. LUNGS: Have fair airflow with few rhonchi. HEART: S1 and S2. ABDOMEN: Soft and nontender. No organomegaly. EXTREMITIES: No edema. NEUROLOGIC: Awake and alert. Follows simple commands. MEDICATIONS: He is on aspirin 325 mg daily, Colace 200 mg twice a day, Cozaar 25 mg twice a day, DuoNeb q. 6 hours, lactulose 20 g daily, insulin coverage, Levaquin 750 mg daily, Levemir 8 units subcutaneously q.a.m and at bedtime, Lipitor 20 mg daily, MiraLax 17 g daily, Neurontin 300 mg 3 times a day, TriCor 145 mg daily, Tylenol p.r.n., thiamine 100 mg daily. LABORATORY DATA: Blood sugar this morning is 342. IMPRESSION AND PLAN: Community-acquired pneumonia, uncontrolled diabetes, peripheral neuropathy, hypertension, sleep apnea syndrome, Wernicke syndrome. From a pulmonary point of view, doing okay. Keep head at 45 degrees, bronchodilator, sleep apnea precaution, avoid sedation, antibiotics as per Infectious Diseases. Continue thiamine. Thank you, and we will follow with you. Bro Engle MD
[2017-10-26] MEDS: Insulin Reg-LOW-Coverage SC SCH ×4 (06:45→21:57)
[2017-10-26] MEDS: POLYETHYLENE GLYCOL 3350 17 GM/Dose PACKET PO SCH (10:20)
[2017-10-26] MEDS: Insulin Detemir 100 units/ml Vial (Levemir) SC SCH ×2 (10:20→21:57)
--- NOTE | 2017-10-26 18:55 | PN ---
DATE: 10/26/2017 SUBJECTIVE: The patient is seen in bed, in no acute distress, nontoxic. PHYSICAL EXAMINATION: VITAL SIGNS: Temperature 98, blood pressure is 150/80, and respiratory rate 20. HEENT: Unremarkable. NECK: Supple. LUNGS: Decreased breath sounds. HEART: Normal S1, S2. ABDOMEN: Soft and nontender. LABORATORY EXAMINATION: Reveals white count is 5.1. ASSESSMENT AND PLAN: This is a 67-year-old male who was seen earlier today in room 304 with multifocal community-acquired pneumonia, improving on Levaquin. We will discontinue the Levaquin. The patient has had adequate Levaquin, today is day #8. Should have a followup x-ray to resolution. Fredy Samuel MD
--- NOTE | 2017-10-27 02:26 | PN ---
DATE: 10/26/2017 SUBJECTIVE: The patient is 67-years old male. The patient is seen and examined at the bedside on 10/26/2017, family was sitting at the bedside also. Discussion done with the family. The patient is getting recondition. His gait is getting better. No chest pain. No fever. No chills, nausea, vomiting, or diarrhea, hematemesis or hematochezia. No swelling of the leg. PHYSICAL EXAMINATION: VITAL SIGNS: Temperature is 98, heart rate 83, respiratory rate 20, blood pressure 169/87, pulse oximetry 98% on room air. HEENT: Head; normocephalic and atraumatic. Eyes; PERRLA. Extraocular muscles intact. Conjunctivae are clear. Nose is patent. Mucous membranes moist. NECK: Supple. No carotid bruits. No JVD or thyromegaly. CHEST: Bilaterally symmetrical. HEART: S1 and S2 positive. LUNGS: Clear to auscultation. ABDOMEN: Soft. Bowel sounds positive. No organomegaly. EXTREMITIES: No edema. No cyanosis. NEUROLOGIC: The patient is awake and alert. Moving all 4 extremities. No focal deficits. MEDICATIONS: Aspirin, Colace, Cozaar, DuoNeb, Lactulose, Levaquin, Levemir, Lipitor, MiraLax, Neurontin, TriCor, and thiamine. LABORATORY DATA: We do not have recent labs, but I reviewed old labs. Morning sugar was 342. ASSESSMENT AND PLAN: Mr. Parish Nicholas is a 67-years old male, came with community-acquired pneumonia, uncontrolled diabetes mellitus, peripheral neuropathy, hypertension, ataxia, sleep apnea syndrome, rule out Wernicke-Korsakoff syndrome. The patient is doing better, sleep apnea precautions. Avoid sedative.. Ofelia Rios MD
--- NOTE | 2017-10-27 03:11 | PN ---
PULMONARY PROGRESS NOTE DATE: 10/26/2017 REFERRING PHYSICIAN: Ofelia Rios MD SUBJECTIVE: The patient is sitting at the side of the bed. Night was unremarkable. Doing well in therapy. Balance is improving. No nausea. No vomiting or diarrhea. No leg pain or leg swelling. Does have a snoring and daytime sleepy. PHYSICAL EXAMINATION: GENERAL: In no acute distress. VITAL SIGNS: Temperature is 98, heart rate is 86, respiratory rate is 18, blood pressure is 125/80, and pulse oximetry is 100% on nasal cannula. HEENT: Moist mucous membrane. Crowded airway. Mallampati score is 4. NECK: Supple. No JVD. LUNGS: Has a fair airflow with few rhonchi. HEART: S1 and S2. ABDOMEN: Soft and nontender. No organomegaly. EXTREMITIES: No edema. NEUROLOGICAL: Awake and alert. Follows simple commands. MEDICATIONS: He is on aspirin 325 mg daily, Colace 200 mg twice a day, Cozaar 25 mg twice a day, albuterol/Atrovent nebulizer q.6 hours, lactulose 20 g daily, insulin coverage, Levemir 8 units subcutaneously a.m. and at bedtime, Lipitor p.o. daily, Neurontin 300 mg 3 times a day, Pepcid 40 mg at bedtime, TriCor 145 mg daily, and vitamin B 100 mg daily. LABORATORY DATA: Show blood sugar this morning 256. IMPRESSION AND PLAN: Community-acquired pneumonia, uncontrolled diabetes, peripheral neuropathy,hypertension, sleep apnea syndrome, and Wernicke's syndrome. Pulmonary point of view, she is doing okay. Continue therapy and fall precaution. Continue vitamin B1. Sleep apnea precaution and avoid sedation. The patient was asked to stop excessive alcohol use. Thank you and we will follow with you. Bro Engle MD
[2017-10-27] MEDS: Insulin Reg-LOW-Coverage SC SCH ×4 (06:54→21:39)
[2017-10-27] MEDS: Albuterol-Ipratrop 3 mg / 0.5 (3 ml) UD IH SCH ×3 (07:24→21:11)
[2017-10-27] MEDS: Insulin Detemir 100 units/ml Vial (Levemir) SC SCH ×2 (10:43→21:38)
--- NOTE | 2017-10-27 16:59 | CP.PCM.PN ---
Subjective - Date & Time of Evaluation Date of Evaluation: 10/27/17 Time of Evaluation: 11:25 - Subjective Subjective: Comfortable, afebrile, not in distress. Objective - Vital Signs/Intake and Output Vital Signs (last 24 hours): Temp Pulse Resp BP Pulse Ox 98.7 F 83 20 121/68 98 10/27/17 09:03 10/27/17 09:03 10/27/17 09:03 10/27/17 09:03 10/27/17 09:03 Intake and Output: 10/27/17 10/27/17 06:59 18:59 Intake Total 460 Balance 460 - Medications Medications: Current Medications Acetaminophen (Tylenol 325mg Tab) 650 mg PO Q4H PRN; Protocol PRN Reason: Pain, moderate (4-7) Albuterol/Ipratropium (Duoneb 3 Mg/0.5 Mg (3 Ml) Ud) 3 ml IH [id number] WILLAM PRN Reason: Protocol Last Admin: 10/27/17 07:24 Dose: 3 ml Aspirin (Aspirin) 325 mg PO DAILY WILLAM PRN Reason: Protocol Last Admin: 10/26/17 10:19 Dose: 325 mg Atorvastatin Calcium (Lipitor) 20 mg PO DIN WILLAM PRN Reason: Protocol Last Admin: 10/26/17 17:49 Dose: 20 mg Docusate Sodium (Colace) 200 mg PO BID WILLAM PRN Reason: Protocol Last Admin: 10/26/17 17:47 Dose: 200 mg Famotidine (Pepcid) 40 mg PO HS WILLAM PRN Reason: Protocol Last Admin: 10/26/17 21:58 Dose: 40 mg Fenofibrate (Tricor) 145 mg PO DAILY WILLAM PRN Reason: Protocol Last Admin: 10/26/17 10:20 Dose: 145 mg Gabapentin (Neurontin) 300 mg PO TID WILLAM PRN Reason: Protocol Last Admin: 10/26/17 17:53 Dose: 300 mg Insulin Detemir (Levemir) 8 unit SC AMHS WILLAM PRN Reason: Protocol Last Admin: 10/26/17 21:57 Dose: 8 unit Insulin Human Regular (Humulin R Low) 0 units SC ACHS WILLAM PRN Reason: Protocol Last Admin: 10/27/17 06:54 Dose: 2 units Lactulose (Enulose) 20 gm PO HS WILLAM Last Admin: 10/26/17 21:57 Dose: 20 gm Losartan Potassium (Cozaar) 25 mg PO BID [facility] PRN Reason: Protocol Last Admin: 10/26/17 17:47 Dose: 25 mg Polyethylene Glycol (Miralax) 17 gm PO DAILY [facility] Stop: 10/27/17 11:31 Last Admin: 10/26/17 10:20 Dose: 17 gm Thiamine HCl (Vitamin B1 Tab) 100 mg PO DAILY [facility] Last Admin: 10/26/17 10:20 Dose: 100 mg - Labs Labs: 10/21/17 06:55 10/21/17 06:55 - Constitutional Appears: Non-toxic - Head Exam Head Exam: NORMAL INSPECTION - ENT Exam ENT Exam: Mucous Membranes Moist - Neck Exam Neck Exam: absent: Lymphadenopathy, Meningismus - Respiratory Exam Respiratory Exam: Decreased Breath Sounds - Cardiovascular Exam Cardiovascular Exam: +S1, +S2 - GI/Abdominal Exam GI & Abdominal Exam: Soft. absent: Tenderness Assessment and Plan - Assessment and Plan (Free Text) Plan: Assessment Multifocal community-acquired pneumonia, clinically improved and S/P treatment with antibiotics HTN DM history of right hallux osteomyelitis S/P treatment with antibiotics 2015 Plan completed 8 days of Levaquin - will monitor clinically off antibiotics since he is at risk for nosocomial infections
[2017-10-27] MEDS: POLYETHYLENE GLYCOL 3350 17 GM/Dose PACKET PO SCH (19:59)
--- NOTE | 2017-10-27 23:25 | PN ---
DATE: 10/27/2017 REFERRING PHYSICIAN: Ofelia Rios MD SUBJECTIVE: He is ambulating in the room. Night was unremarkable. His balance is improving. No nausea. No vomiting or diarrhea. No leg pain or leg swelling. PHYSICAL EXAMINATION: GENERAL: In no acute distress. VITAL SIGNS: Temperature is 98, heart rate is 85, respiratory rate is 18, blood pressure is 134/80, and pulse oximetry is 99% on room air. HEENT: Moist mucous membrane. Crowded airway. Mallampati score is IV. NECK: Supple. No JVD. HEART: S1 and S2. LUNGS: Has a fair airflow with few rhonchi. ABDOMEN: Soft, nontender. No organomegaly. EXTREMITIES: There is no edema. NEUROLOGIC: Awake, alert. Follow simple commands. LABORATORY DATA: Reviewed. Blood sugar this morning 321. MEDICATIONS: He is on aspirin 325 mg daily, Colace 200 mg twice a day, Cozaar 25 mg twice a day, DuoNeb q. 6 hour, lactulose 20 g daily, insulin coverage, Levemir 8 units subcutaneously a.m. and at bedtime, Lipitor 20 mg daily, gabapentin 300 mg 3 times a day, Pepcid 40 mg daily, TriCor 145 mg daily, Tylenol p.r.n., vitamin B 100 mg daily. IMPRESSION AND PLAN: Community-acquired pneumonia, uncontrolled diabetes, peripheral neuropathy, hypertension, sleep apnea syndrome, and Wernicke's syndrome. Pulmonary point of view, he is doing okay. Fall precaution. Advice the patient to abstain from alcohol. Outpatient attend sleep study. Continue therapy. Continue vitamin B1 daily basis. Thank you and we will follow with you. Bro Engle MD
[2017-10-28] MEDS: Albuterol-Ipratrop 3 mg / 0.5 (3 ml) UD IH SCH ×2 (01:57→07:20)
--- NOTE | 2017-10-28 02:43 | PN ---
DATE: 10/27/2017 SUBJECTIVE: The patient is a 67-year-old male. The patient is seen and examined on 10/27/2017 on the bedside, looking comfortable. No nausea, vomiting, or diarrhea. No fever. No chills. No headaches. No dizziness. His balance is improving. PHYSICAL EXAMINATION VITAL SIGNS: Temperature is 98, heart rate is 85, respiratory rate is 18, blood pressure is 134/80, and pulse oximetry is 99% on room air. HEENT: Head is normocephalic and atraumatic. Eyes; PERRLA. Extraocular muscles are intact. Conjunctivae are clear. Nose is patent. Mucous membranes are moist. NECK: Supple. No carotid bruits. No JVD or thyromegaly. CHEST: Bilaterally symmetrical. HEART: S1 and S2 positive. LUNGS: Clear to auscultation. ABDOMEN: Soft. Bowel sounds positive. No organomegaly. EXTREMITIES: No edema. No cyanosis. NEUROLOGIC: The patient is awake and alert. Moving all 4 extremities. No focal deficits. LABORATORY DATA: We do not have recent labs, but I reviewed old labs. MEDICATIONS: Aspirin, Colace, Cozaar, DuoNeb, Lactulose, insulin, Levemir, Lipitor, gabapentin, Pepcid, TriCor, Tylenol, and vitamin B12. ASSESSMENT AND PLAN: Mr. Cristopher Lugo is a 67-year-old male, came with community-acquired pneumonia, uncontrolled diabetes mellitus, peripheral neuropathy, ataxia, history of ethanol abuse, hypertension, sleep apnea syndrome, rule out Wernicke-Korsakoff syndrome. The patient is improving, but still is on fall precautions. Advised staying off alcohol. Outpatient attempt sleep study. Gastrointestinal and deep venous thrombosis prophylaxes and repeat laboratories. We will follow up. Ofelia Rios MD
[2017-10-28] MEDS: Insulin Reg-LOW-Coverage SC SCH ×2 (06:42→12:11)
[2017-10-28 06:48] VITALS: RESP 20; O2SAT 98
[2017-10-28 10:25] VITALS: BP 184/116; PULSE 81; TEMP 98.4
[2017-10-28] MEDS: Insulin Detemir 100 units/ml Vial (Levemir) SC SCH (11:37)
--- NOTE | 2017-10-28 18:44 | PN ---
PULMONARY PROGRESS NOTE DATE: 10/28/2017 REFERRING PHYSICIAN: Ofelia Rios MD. SUBJECTIVE: He is sitting at the side of the bed. Night was unremarkable. No headache. No rhinitis. No nausea. No vomiting or diarrhea. No leg pain or leg swelling. Looking forward to go home. OBJECTIVE: GENERAL: In no acute distress. VITAL SIGNS: Temperature is 98, heart rate is 85, respiratory rate is 20, blood pressure is 127/84, and pulse ox is 98% on room air. HEENT: Moist mucous membranes. Crowded airway. NECK: Supple. No JVD. LUNGS: Has a fair airflow with few rhonchi. HEART: S1 and S2. ABDOMEN: Soft and nontender. No organomegaly. EXTREMITIES: No edema. NEUROLOGIC: Awake, alert, and follow simple commands. MEDICATIONS: Reviewed and noted. No new changes in medication reported since yesterday. LABORATORY DATA: Reviewed and noted. Blood sugar this morning is 224. IMPRESSION AND PLAN: Community-acquired pneumonia, uncontrolled diabetes, peripheral neuropathy, hypertension, sleep apnea syndrome, and Wernicke syndrome. Pulmonary point of view, doing well. Spoke in detail with the patient about his excessive alcohol use and his risk involved with it. He expressed understanding. He will benefit from sleep study as outpatient. Fall precautions. Thank you and I will follow with you. Bro Engle MD
== END 2017-10-28 14:26 | disposition home or self-care (01) | DRG 194 ==
LOC: TRCU 16:22
PROVIDERS: ADMIT Internal Medicine; ATTEND Internal Medicine
PROC: F07Z9FZ Gait Training/Functional Ambulation Treatment using Assistive, Adaptive, Supportive or Protective Equipment (ICD-10-PCS; principal; 2017-10-21)
PROC: F07M6ZZ Therapeutic Exercise Treatment of Musculoskeletal System - Whole Body (ICD-10-PCS; 2017-10-21)
PROC: F08Z1ZZ Dressing Techniques Treatment (ICD-10-PCS; 2017-10-22)
DX: J18.9 Pneumonia, unspecified organism (principal); M86.9 Osteomyelitis, unspecified; E11.42 Type 2 diabetes mellitus with diabetic polyneuropathy; E11.69 Type 2 diabetes mellitus with other specified complication; E51.2 Wernicke's encephalopathy; E11.65 Type 2 diabetes mellitus with hyperglycemia; D64.9 Anemia, unspecified; E66.9 Obesity, unspecified; E78.00 Pure hypercholesterolemia, unspecified; F10.10 Alcohol abuse, uncomplicated; F17.200 Nicotine dependence, unspecified, uncomplicated; G47.33 Obstructive sleep apnea (adult) (pediatric); H26.9 Unspecified cataract; I10 Essential (primary) hypertension; K59.00 Constipation, unspecified; R26.81 Unsteadiness on feet; G47.30 Sleep apnea, unspecified; Z79.4 Long term (current) use of insulin; Z88.0 Allergy status to penicillin

== ENCOUNTER 2018-08-17 20:22 | Inpatient (IN) | payer MEDICARE, OTHER ==
[2018-08-17 21:01] VITALS: BMI 24.3
[2018-08-17] MEDS ORDERED: ACYCLOVIR IV STA (21:13)
[2018-08-17] MEDS ORDERED: SODIUM CHLORIDE 0.9% IV STA (21:13)
[2018-08-17] MEDS ORDERED: DiphenhydrAMINE 50 mg/ml Inj IVP STA (21:13)
--- NOTE | 2018-08-17 21:19 | ED PDOC ---
Arrival/HPI <Hans Mary - Last Filed: 08/17/18 22:44> - General Historian: Patient - History of Present Illness Narrative History of Present Illness (Text): 08/17/18 21:16 68 y/o male, pmh including htn/hld/dm, penicillin allergy, c/o generalized fatigue and itching body rash x 3 days. Pt. has been feeling fatigue, associated with vesicular itching rash, never had chicken pox as a child, stated that he has not been eating an drinking well, admits fatigue, no night sweat, no leg or thigh swelling, no chest pain or shortness of breath, admits [place] 4 [place]. Pt. has no neck stiffness, no neck pain, admits feeling chills. Pt. already seen at the urgent care for the chicken pox and started on the acycylovir which he took it 3 doses. <Eligio Barger - Last Filed: 08/18/18 14:31> - General Chief Complaint: Abnormal Skin Integrity Time Seen by Provider: 08/17/18 20:24 Past Medical History - Provider Review Nursing Documentation Reviewed: Yes - Cardiac Hx Hypertension: Yes - Pulmonary Hx Respiratory Disorders: No - Neurological Hx Neurological Disorder: No - HEENT Hx Cataracts: Yes - Renal Hx Renal Disorder: No - Endocrine/Metabolic Hx Diabetes Mellitus Type 2: Yes - Hematological/Oncological Hx Blood Disorders: No - Integumentary Hx Dermatological Disorder: No - Musculoskeletal/Rheumatological Hx Falls: No - Gastrointestinal Hx Gastrointestinal Disorders: No - Psychiatric Hx Psychophysiologic Disorder: No Hx Substance Use: No - Anesthesia Hx Anesthesia: Yes <Eligio Barger - Last Filed: 08/18/18 14:31> Family/Social History - Physician Review Nursing Documentation Reviewed: Yes Family/Social History: Unknown Family HX Smoking Status: Never Smoked Hx Alcohol Use: No Hx Substance Use: No <Eligio Barger - Last Filed: 08/18/18 14:31> Allergies/Home Meds <Hans Mary - Last Filed: 08/17/18 22:44> <Eligio Barger - Last Filed: 08/18/18 14:31> Allergies/Adverse Reactions: Allergies Penicillins Allergy (Verified 08/17/18 21:00) ITCHING Home Medications: Home Meds Medication Instructions Recorded Confirmed Insulin Glargine, Recombina 0 unit SC DAILY 10/17/17 08/17/18 [Lantus] Insulin Lispro [humALOG] 0 unit SC DAILY 10/17/17 08/17/18 Review of Systems - Review of Systems Constitutional: Fatigue, Other (chills). absent: Weight Change, Fevers, Night Sweats Eyes: absent: Vision Changes ENT: absent: Hearing Changes Respiratory: absent: SOB, Cough Cardiovascular: absent: Chest Pain Gastrointestinal: absent: Abdominal Pain, Nausea, Vomiting Skin: Rash, Skin Lesions. absent: Pruritis, Laceration, Abscess, Ulcer, Cellulitis Neurological: absent: Headache, Dizziness Psychiatric: absent: Anxiety, Depression, Suicidal Ideation <Eligio Barger - Last Filed: 08/18/18 14:31> Physical Exam Vital Signs Temp Resp BP Pulse Ox 08/17/18 21:01 98.8 F 16 142/99 H 97 <Hans Mary - Last Filed: 08/17/18 22:44> Vital Signs Reviewed: Yes Vital Signs Temp Resp BP Pulse Ox 08/17/18 21:01 98.8 F 16 142/99 H 97 Temperature: Afebrile Blood Pressure: Hypertensive Pulse: Regular Respiratory Rate: Normal Appearance: Positive for: Well-Appearing, Non-Toxic, Comfortable Pain Distress: None Mental Status: Positive for: Alert and Oriented X 3 - Systems Exam Head: Present: Atraumatic, Normocephalic Pupils: Present: PERRL Extroacular Muscles: Present: EOMI Conjunctiva: Present: Normal Mouth: Present: Moist Mucous Membranes Neck: Present: Normal Range of Motion Respiratory/Chest: Present: Clear to Auscultation, Good Air Exchange. No: Respiratory Distress, Accessory Muscle Use Cardiovascular: Present: Regular Rate and Rhythm, Normal S1, S2. No: Murmurs Abdomen: No: Tenderness, Distention, Peritoneal Signs Back: Present: Normal Inspection Upper Extremity: Present: Normal Inspection. No: Cyanosis, Edema Lower Extremity: Present: Normal Inspection. No: Edema Neurological: Present: GCS=15, CN II-XII Intact, Speech Normal, Motor Func Grossly Intact, Gait Normal, Memory Normal Skin: Present: Warm, Dry, Rashes (generalized vesicular fluid filled rash noted on the bilateral upper/lower extremities/trunk/chest/abdomen, no bullseye or target signs. ), Normal Color Lymphatic: No: Cervical Adenopathy Psychiatric: Present: Alert, Oriented x 3, Normal Insight, Normal Concentration <Eligio Barger - Last Filed: 08/18/18 14:31> Medical Decision Making - RAD Interpretation Radiology Orders: 08/17/18 21:13 CHEST PORTABLE [RAD] Stat - Medication Orders Current Medication Orders: Sodium Chloride (Sodium Chloride 0.9%) 1,000 mls @ 100 mls/hr IV .Q10H WILLAM Last Admin: 08/17/18 22:25 Dose: 100 mls/hr eMAR Start Stop Document 08/17/18 22:25 RG (Rec: 08/17/18 22:34 [place] [id number]) Intravenous Solution Start Date 08/17/18 Start Time 22:25 Discontinued Medications Acetaminophen (Tylenol 325mg Tab) 650 mg PO STAT STA Stop: 08/17/18 21:14 Last Admin: 08/17/18 22:10 Dose: 650 mg MAR Pain/Vitals Document 08/17/18 22:10 RG (Rec: 08/17/18 22:35 [place] [id number]) Pain Reassessment Is This A Pain ReAssessment? Yes Diphenhydramine HCl (Benadryl) 25 mg IVP STAT STA Stop: 08/17/18 21:14 Last Admin: 08/17/18 22:25 Dose: 25 mg IVP Administration Document 08/17/18 22:25 RG (Rec: 08/17/18 22:35 [id number]) Charges for Administration # of IVP Administrations 1 Acyclovir 350 mg/ Sodium (Chloride) 100 mls @ 100 mls/hr IV STAT STA; Protocol Stop: 08/17/18 22:12 Last Admin: 08/17/18 22:27 Dose: 100 mls/hr eMAR Start Stop Document 08/17/18 22:27 RG (Rec: 08/17/18 22:34 [id number] Intravenous Solution Start Date 08/17/18 Start Time 22:27 <Hans Mary - Last Filed: 08/17/18 22:44> ED Course and Treatment: 08/17/18 21:18 -labs/ua/vbg -chest xray -IVF/tylenol/benadryl/acyclovir. -Observe and reassess 08/17/18 23:53 -EKG:SR @ 83 BPM, no ST elevation or depression, no Tall T or T wave inversion. -Chest xray wet read: no active disease -Labs are non-significant except the Na 128, BUN 29 and creatine 1.6 (IVF ordered), K+ 5.3 (kayaxylate 15gm po ordered) -Rapid flu is negative -UA show no UTI -Pt. will need admission for electrolyte correction/renal insufficiency with dehydration and IV hydration as he is poor po intake. -Paging Dr. Rios for admission. 08/18/18 00:17 -I discussed the case with Dr. Rios, discussed about the case/labs/radiology result, agreed to admit to her service with Dr. Samuel on routine consult. -Case discussed with DR. Mary and agreed to the med/surg floor. - RAD Interpretation Radiology Orders: 08/17/18 21:13 CHEST PORTABLE [RAD] Stat Date of service: 08/17/2018 HISTORY: medical clearance COMPARISON: 10/17/2017. FINDINGS: LUNGS: No active pulmonary disease. Linear atelectasis, scarring left lower lobe. PLEURA: No significant pleural effusion identified, no pneumothorax apparent. CARDIOVASCULAR: No radiographic findings to suggest acute or significant cardiovascular disease. OSSEOUS STRUCTURES: No significant abnormalities. VISUALIZED UPPER ABDOMEN: Normal. OTHER FINDINGS: None. IMPRESSION: No active disease. No significant interval change compared to the prior examination(s). Social Services: Radiologist - EKG Interpretation EKG Interpretation (Text): 08/17/18 23:49 SR @ 83 BPM, no ST elevation or depression, no Tall T or T wave inversion. Interpreted by ED Physician: Yes Type: 12 lead EKG - Medication Orders Current Medication Orders: Acetaminophen (Tylenol 325mg Tab) 650 mg PO STAT STA Stop: 08/17/18 21:14 Diphenhydramine HCl (Benadryl) 25 mg IVP STAT STA Stop: 08/17/18 21:14 Acyclovir 350 mg/ Sodium (Chloride) 100 mls @ 100 mls/hr IV STAT STA; Protocol Stop: 08/17/18 22:12 Sodium Chloride (Sodium Chloride 0.9%) 1,000 mls @ 100 mls/hr IV .Q10H WILLAM <Eligio Barger Q - Last Filed: 08/18/18 14:31> - PA / [employer] / Resident Statement ERYN has reviewed & agrees with the documentation as recorded. ERYN has examined the patient and agrees with the treatment plan. <Hans Mary - Last Filed: 08/17/18 22:44> - PA / [employer] SALES ENGINEER / Resident Statement ERYN has reviewed & agrees with the documentation as recorded. ERYN has examined the patient and agrees with the treatment plan. <Eligio Barger - Last Filed: 08/18/18 14:31> Disposition/Present on Arrival <Hans Mary - Last Filed: 08/17/18 22:44> - Present on Arrival Any Indicators Present on Arrival: No History of DVT/PE: No History of Uncontrolled Diabetes: Yes Urinary Catheter: No History of Decub. Ulcer: No History Surgical Site Infection Following: None - Disposition Have Diagnosis and Disposition been Completed?: Yes Disposition Time: 21:19 Patient Plan: Admission, Observation <Eligio Barger - Last Filed: 08/18/18 14:31> - Disposition Diagnosis: Hyponatremia, Hyperkalemia, Dehydration, Renal insufficiency, Chicken pox Disposition: HOSPITALIZED Patient Problems: Current Active Problems Problem Status Onset Chicken pox Acute Dehydration Acute Hyperkalemia Acute Hyponatremia Acute Renal insufficiency Acute Condition: STABLE
[2018-08-17] MEDS: Sodium Chloride 0.9% 1,000 ML IV SCH (22:25)
[2018-08-17 23:04] LABS: VENOUS BLOOD GAS BASE EXCESS -2.2 mmol/L (0.0-2.0); VENOUS BLOOD GAS PO2 44 mm/Hg (30-55); VENOUS BLOOD PH 7.34 (7.32-7.43)
[2018-08-17 23:09] LABS: BASO # 0.19 K/mm3 (0.0-2.0); BASO % 2.5 % (0.0-3.0); GRAN # 3.09 (1.4-6.5); GRAN % 40.2 % (50.0-68.0); HEMOGLOBIN 13.3 g/dL (14.0-18.0); LYMPH # 3.3 (1.2-3.4); LYMPH % 43.4 % (22.0-35.0); MEAN CELL VOLUME 80.5 fl (80.0-105.0); MEAN CORPUSCULAR HEMOGLOBIN 28.2 pg (25.0-35.0); MEAN CORPUSCULAR HGB CONC 35.1 g/dl (31.0-37.0); MEAN PLATELET VOLUME 11.4 fl (7.0-11.0); MONO # 1.1 (0.1-0.6); MONO % 13.9 % (1.0-6.0); RBC 4.71 10^6/uL (3.5-6.1); RED CELL DISTRIBUTION WIDTH 12.6 % (11.5-14.5); WHITE BLOOD COUNT 7.7 10^3/ul (4.5-11.0)
[2018-08-17 23:19] LABS: ALB/GLOB RATIO 1.3 (1.1-1.8); ALBUMIN 3.9 g/dL (3.0-4.8); CALCIUM 9.1 mg/dL (8.4-10.5)
[2018-08-17] MEDS ORDERED: Sod Polystyrene Sulf 15 gm/60 ml Susp PO STA (23:43)
[2018-08-18 00:24] LABS: URINE BILIRUBIN NEGATIVE (NEGATIVE); URINE BLOOD LARGE (NEGATIVE); URINE GLUCOSE (UA) >=1000 mg/dL (NEGATIVE); URINE LEUKOCYTE ESTERASE NEGATIVE Leu/uL (NEGATIVE); URINE PROTEIN >=300 mg/dL (<30 mg/dL); URINE UROBILINOGEN 0.2 E.U./dL (<1 E.U./dL)
[2018-08-18 00:32] LABS: URINE APPEARANCE CLEAR (CLEAR); URINE COLOR YELLOW (YELLOW)
[2018-08-18 00:33] LABS: URINE RBC 25 - 30 /hpf (0-2)
--- NOTE | 2018-08-18 09:24 | CARD ---
APPROVED REPORT Date of service: 08/17/2018 EKG Measurement Heart [id number] ID [id number] <Conclusion> RSR PRWP NSSTW changes Prolonged QTc No lead ll present.
[2018-08-18] MEDS ORDERED: Calamine-Zinc Oxide Lotion (120 ml) TOP SCH (10:00)
[2018-08-18] MEDS: Insulin Detemir 100 units/ml Vial (Levemir) SC SCH ×2 (11:27→22:11)
[2018-08-18] MEDS: Calamine-Zinc Oxide Lotion (120 ml) TOP SCH ×2 (11:29→18:51)
--- NOTE | 2018-08-18 13:26 | RAD ---
Date of service: 08/17/2018 HISTORY: medical clearance COMPARISON: 10/17/2017. FINDINGS: LUNGS: No active pulmonary disease. Linear atelectasis, scarring left lower lobe. PLEURA: No significant pleural effusion identified, no pneumothorax apparent. CARDIOVASCULAR: No radiographic findings to suggest acute or significant cardiovascular disease. OSSEOUS STRUCTURES: No significant abnormalities. VISUALIZED UPPER ABDOMEN: Normal. OTHER FINDINGS: None. IMPRESSION: No active disease. No significant interval change compared to the prior examination(s).
[2018-08-18] MEDS ORDERED: Acyclovir 500 MG in Sodium Chloride 0.9% 100 ML IV SCH (14:00)
--- NOTE | 2018-08-18 14:16 | CP.PCM.CON ---
History of Present Illness - History of Present Illness History of Present Illness: 68 year old male with PMH of HTN, DM, history of right hallux osteomyelitis S/P treatment with antibiotics 2015, history of multifocal pneumonia in 2017 came in to [facility] complaining of itchy rash all over his body which started 3-4 d ays ago. He notes that it started on his torso, then spread to his arms and some on his legs. Some of them are fluid-filled. He denies fever or chills, no itchy eyes, no tearing, no headache or dizziness, no chest pain, no SOB, no sore throat, no rhinorrhea, no cough, no abdominal pain, no diarrhea, no dysuria, no cough. Patient states he has never had chickenpox in his life. He was recently in another country and came back about 4-5 days ago, and does not recall specifically being exposed to someone with chickenpox. He denies walking in the [place]. Infectious Diseases consult is requested to further evaluate and manage. Review of Systems - Review of Systems All systems: reviewed and no additional remarkable complaints except (as per HPI) Past Patient History - Past Social History Smoking Status: Never Smoked - CARDIAC Hx Hypertension: Yes - PULMONARY Hx Respiratory Disorders: No - NEUROLOGICAL Hx Neurological Disorder: No - HEENT Hx Cataracts: Yes - RENAL Hx Chronic Kidney Disease: No - ENDOCRINE/METABOLIC Hx Diabetes Mellitus Type 2: Yes - HEMATOLOGICAL/ONCOLOGICAL Hx Blood Disorders: No - INTEGUMENTARY Hx Dermatological Problems: No - MUSCULOSKELETAL/RHEUMATOLOGICAL Hx Falls: No - GASTROINTESTINAL Hx Gastrointestinal Disorders: No - GENITOURINARY/GYNECOLOGICAL Hx Genitourinary Disorders: No - PSYCHIATRIC Hx Psychophysiologic Disorder: No Hx Substance Use: No - SURGICAL HISTORY Hx Surgeries: Yes (Cataract) - ANESTHESIA Hx Anesthesia: Yes Meds Allergies/Adverse Reactions: Allergies Allergy/AdvReac Type Severity Reaction Status Date / Time Penicillins Allergy ITCHING Verified 08/17/18 21:00 - Medications Medications: Current Medications Aspirin (Aspirin) 325 mg PO DAILY [facility] Atorvastatin Calcium (Lipitor) 20 mg PO DIN [facility] Calamine (Calamine Lotion) 0 ml TOP BID [facility] Famotidine (Pepcid) 20 mg PO HS [facility] Fenofibrate (Tricor) 145 mg PO DAILY [facility] Gabapentin (Neurontin) 300 mg PO TID [facility] Sodium Chloride (Sodium Chloride 0.9%) 1,000 mls @ 100 mls/hr IV .Q10H [facility] Last Admin: 08/17/18 22:25 Dose: 100 mls/hr Acyclovir 700 mg/ Sodium (Chloride) 100 mls @ 100 mls/hr IV Q12 [facility]; Protocol Insulin Detemir (Levemir) 10 unit SC [facility] Lactulose (Enulose) 20 gm PO HS PRN PRN Reason: Constipation Loratadine (Claritin) 10 mg PO DAILY [facility] Losartan Potassium (Cozaar) 25 mg PO DAILY [facility] Losartan Potassium (Cozaar) 25 mg PO .EXTRA DOSE ONE Stop: 08/18/18 10:46 Montelukast Sodium (Singulair) 10 mg PO HS [facility] Thiamine HCl (Vitamin B1 Tab) 100 mg PO DAILY [facility] Physical Exam - Constitutional Appears: No Acute Distress, Chronically Ill - Head Exam Head Exam: NORMAL INSPECTION - ENT Exam ENT Exam: Mucous Membranes Moist - Respiratory Exam Respiratory Exam: Decreased Breath Sounds - Cardiovascular Exam Cardiovascular Exam: +S1, +S2 - GI/Abdominal Exam GI & Abdominal Exam: Soft. absent: Tenderness - Skin Skin Exam: Rash (mutiple vesicular lesions on the torso, some on the arms, some excoriated or crusted) Results - Vital Signs Recent Vital Signs: Last Vital Signs Temp 97.8 F 08/18/18 06:00 Pulse 89 08/18/18 06:00 Resp 18 08/18/18 06:00 BP 154/95 H 08/18/18 06:00 Pulse Ox 97 08/18/18 06:00 - Labs Result Diagrams: 08/17/18 22:57 08/17/18 22:57 Labs: Laboratory Results - last 24 hr 08/17/18 08/17/18 08/17/18 22:57 22:57 22:57 WBC 7.7 D RBC 4.71 Hgb 13.3 L D Hct 37.9 L MCV 80.5 D MCH 28.2 MCHC 35.1 RDW 12.6 Plt Count 95 L MPV 11.4 H Gran % 40.2 L Lymph % (Auto) 43.4 H Mcminn % (Auto) 13.9 H Eos % (Auto) 0.0 L Baso % (Auto) 2.5 Gran # 3.09 Lymph # (Auto) 3.3 Mcminn # (Auto) 1.1 H Eos # (Auto) 0.0 Baso # (Auto) 0.19 pO2 44 VBG pH 7.34 VBG pCO2 44.0 VBG HCO3 23.7 VBG Total CO2 25.1 VBG O2 Sat (Calc) 76.5 H VBG Base Excess -2.2 L VBG Potassium 4.9 Sodium 127.0 L 128 L Chloride 93.0 L 92 L Glucose 328 H Lactate 1.9 FiO2 21.0 Potassium 5.3 H Carbon Dioxide 22 Anion Gap 20 BUN 29 H Creatinine 1.6 H Est GFR ( Amer) 53 Est GFR (Non-Af Amer) 43 Random Glucose 296 H Calcium 9.1 Magnesium 1.8 Total Bilirubin 0.9 AST 81 H D ALT 71 H Alkaline Phosphatase 80 Total Protein 7.0 Albumin 3.9 Globulin 3.0 Albumin/Globulin Ratio 1.3 Venous Blood Potassium 4.9 Urine Color Urine Appearance Urine pH Ur Specific Manvel Urine Protein Urine Glucose (UA) Urine Ketones Urine Blood Urine Nitrate Urine Bilirubin Urine Urobilinogen Ur Leukocyte Esterase Urine RBC Urine WBC Ur Epithelial Cells Influenza Typ A,B (EIA) 08/17/18 08/17/18 22:57 23:40 WBC RBC Hgb Hct MCV MCH MCHC RDW Plt Count MPV Gran % Lymph % (Auto) Mcminn % (Auto) Eos % (Auto) Baso % (Auto) Gran # Lymph # (Auto) Mcminn # (Auto) Eos # (Auto) Baso # (Auto) pO2 VBG pH VBG pCO2 VBG HCO3 VBG Total CO2 VBG O2 Sat (Calc) VBG Base Excess VBG Potassium Sodium Chloride Glucose Lactate FiO2 Potassium Carbon Dioxide Anion Gap BUN Creatinine Est GFR ( Amer) Est GFR (Non-Af Amer) Random Glucose Calcium Magnesium Total Bilirubin AST ALT Alkaline Phosphatase Total Protein Albumin Globulin Albumin/Globulin Ratio Venous Blood Potassium Urine Color Yellow Urine Appearance Clear Urine pH 6.0 Ur Specific Manvel 1.025 Urine Protein >=300 H Urine Glucose (UA) >=1000 Urine Ketones Negative Urine Blood Large H Urine Nitrate Negative Urine Bilirubin Negative Urine Urobilinogen 0.2 Ur Leukocyte Esterase Negative Urine RBC 25 - 30 Urine WBC 2 - 5 Ur Epithelial Cells 6 - 8 Influenza Typ A,B (EIA) Negative for flu a/b Assessment & Plan - Assessment and Plan (Free Text) Plan: Assessment consider viral exanthem, varicella one of the considerations history of multifocal community-acquired pneumonia HTN DM history of right hallux osteomyelitis S/P treatment with antibiotics 2015 Plan started IV Acyclovir, renally-adjusted and will check Varicella titers; we have started airborne and contact isolation will monitor clinically
[2018-08-18] MEDS: Insulin Reg-LOW-Coverage SC SCH ×2 (17:11→22:14)
[2018-08-18] MEDS: Sodium Chloride 0.9% 1,000 ML IV SCH (22:18)
[2018-08-19] MEDS: Insulin Reg-LOW-Coverage SC SCH ×4 (08:00→22:35)
[2018-08-19 08:34] LABS: HEMOGLOBIN 12.3 g/dL (14.0-18.0); MEAN CELL VOLUME 81.5 fl (80.0-105.0); MEAN CORPUSCULAR HEMOGLOBIN 27.8 pg (25.0-35.0); MEAN CORPUSCULAR HGB CONC 34.1 g/dl (31.0-37.0); MEAN PLATELET VOLUME 11.5 fl (7.0-11.0); RBC 4.43 10^6/uL (3.5-6.1); RED CELL DISTRIBUTION WIDTH 12.8 % (11.5-14.5); WHITE BLOOD COUNT 8.5 10^3/ul (4.5-11.0)
[2018-08-19 08:42] LABS: IRON 54 ug/dL (45-180)
[2018-08-19 08:43] LABS: CALCIUM 8.6 mg/dL (8.4-10.5)
[2018-08-19 08:52] LABS: % IRON SATURATION 22 % (20-55); TOTAL IRON BINDING CAPACITY 248 ug/dL (261-462)
[2018-08-19] MEDS: Insulin Detemir 100 units/ml Vial (Levemir) SC SCH ×2 (10:00→22:28)
--- NOTE | 2018-08-19 10:07 | RAD ---
Date of service: 08/18/2018 HISTORY: Fever. COMPARISON: August 18, 2018. FINDINGS: LUNGS: No active pulmonary disease. PLEURA: Linear atelectasis again identified left lower lobe. No significant pleural effusion identified, no pneumothorax apparent. CARDIOVASCULAR: No radiographic findings to suggest acute or significant cardiovascular disease. OSSEOUS STRUCTURES: No significant abnormalities. VISUALIZED UPPER ABDOMEN: Normal. OTHER FINDINGS: None. IMPRESSION: No active disease. No significant interval change compared to the prior examination(s).
[2018-08-19] MEDS: Calamine-Zinc Oxide Lotion (120 ml) TOP SCH ×2 (11:00→18:00)
[2018-08-19 17:32] LABS: FOLATE 14.5 ng/mL
--- NOTE | 2018-08-19 18:40 | CP.PCM.PN ---
Subjective - Date & Time of Evaluation Date of Evaluation: 08/19/18 Time of Evaluation: 11:00 - Subjective Subjective: Rash is less itchy, had fevers overnight but has defervesced. Objective - Vital Signs/Intake and Output Vital Signs (last 24 hours): Temp Pulse Resp BP Pulse Ox 98.3 F 80 18 130/79 100 08/19/18 06:00 08/19/18 06:00 08/19/18 06:00 08/19/18 06:00 08/19/18 06:00 Intake and Output: 08/19/18 08/19/18 06:59 18:59 Intake Total 120 Balance 120 - Medications Medications: Current Medications Acetaminophen (Tylenol 325mg Tab) 650 mg PO Q6H PRN PRN Reason: Fever >100.4 F Last Admin: 08/18/18 17:12 Dose: 650 mg Aspirin (Aspirin) 325 mg PO DAILY [facility] Last Admin: 08/18/18 15:10 Dose: 325 mg Atorvastatin Calcium (Lipitor) 20 mg PO DIN [facility] Last Admin: 08/18/18 17:13 Dose: 20 mg Calamine (Calamine Lotion) 0 ml TOP BID [facility] Last Admin: 08/18/18 18:51 Dose: 10 ml Famotidine (Pepcid) 20 mg PO HS [facility] Last Admin: 08/18/18 22:15 Dose: 20 mg Fenofibrate (Tricor) 145 mg PO DAILY [facility] Last Admin: 08/18/18 11:26 Dose: 145 mg Gabapentin (Neurontin) 300 mg PO TID [facility] Last Admin: 08/18/18 17:13 Dose: 300 mg Sodium Chloride (Sodium Chloride 0.9%) 1,000 mls @ 100 mls/hr IV .Q10H [facility] Last Admin: 08/18/18 22:18 Dose: 100 mls/hr Acyclovir 700 mg/ Sodium (Chloride) 100 mls @ 100 mls/hr IV Q12 [facility]; Protocol Last Admin: 08/18/18 22:02 Dose: 100 mls/hr Insulin Detemir (Levemir) 10 unit SC [facility] Last Admin: 08/18/18 22:11 Dose: 10 units Insulin Human Regular (Humulin R Low) 0 units SC ACHS [facility]; Protocol Last Admin: 08/18/18 22:14 Dose: Not Given Lactulose (Enulose) 20 gm PO HS PRN PRN Reason: Constipation Loratadine (Claritin) 10 mg PO DAILY [facility] Last Admin: 08/18/18 11:26 Dose: 10 mg Losartan Potassium (Cozaar) 25 mg PO DAILY [facility] Montelukast Sodium (Singulair) 10 mg PO [facility] Last Admin: 08/18/18 22:11 Dose: 10 mg Thiamine HCl (Vitamin B1 Tab) 100 mg PO DAILY [facility] Last Admin: 08/18/18 11:26 Dose: 100 mg - Labs Labs: 08/19/18 07:00 08/19/18 07:00 - Constitutional Appears: Chronically Ill - Head Exam Head Exam: NORMAL INSPECTION - Respiratory Exam Respiratory Exam: Decreased Breath Sounds - Cardiovascular Exam Cardiovascular Exam: +S1, +S2 - GI/Abdominal Exam GI & Abdominal Exam: Soft. absent: Tenderness Assessment and Plan - Assessment and Plan (Free Text) Plan: Assessment consider viral exanthem, consider varicella history of multifocal community-acquired pneumonia HTN DM history of right hallux osteomyelitis S/P treatment with antibiotics 2015 Plan continue IV Acyclovir day 2 and follow up Varicella titers; continue airborne and contact isolation will continue to monitor clinically
[2018-08-19] MEDS: Sodium Chloride 0.9% 1,000 ML IV SCH (22:34)
--- NOTE | 2018-08-20 00:35 | CON ---
DATE: 08/19/2018 PULMONARY CONSULT REFERRING PHYSICIAN: Ofelia Rios MD. REASON FOR CONSULT: Chronic lung disease, history of alcohol abuse, admitted with diffuse body rash. HISTORY OF PRESENT ILLNESS: This is a 68-year-old gentleman with past medical history significant for excessive alcohol use, diabetes, Wernicke-Korsakoff syndrome, who was recently traveling to [place]. Comes back with diffuse trunk and extremity rash. Seen by Infectious Diseases. Started on acyclovir. According to the patient, he had a measle in the past, but never had a chickenpox. Also has some fever, mild cough. No nausea, no vomiting, no diarrhea. No leg pain, no leg swelling. PAST MEDICAL HISTORY: Alcohol abuse with alcohol-related Wernicke-Korsakoff syndrome, diabetes. FAMILY HISTORY: No significant cardiopulmonary disease reported. SOCIAL HISTORY: Nonsmoker, but has alcohol abuse. ALLERGIES: ALLERGIC TO PENICILLIN. MEDICATIONS: He is on acyclovir mg every 12 hours, aspirin 325 mg daily, calamine lotion at affected area, Claritin is 10 mg daily, Cozaar 25 mg daily, lactulose 20 g at bedtime p.r.n., insulin coverage, Levemir 10 units subcu a.m. and at bedtime, Lipitor 20 mg daily, Neurontin 3 mg three times a day, Pepcid 20 mg daily, Singulair 10 mg daily, IV fluid normal saline 100 mL/hour, Tricor 145 mg daily, Tylenol p.r.n., vitamin B1 of 100 mg daily. REVIEW OF SYSTEMS: No headache, no rhinitis. Has mild cough and sputum production. No chest pain. Diffuse body rash in different stages. No leg pain. No leg swelling. PHYSICAL EXAMINATION: GENERAL: Sitting up on side of the bed, having lunch. T-max of 100.6, heart rate is 80, respiratory rate is 18, blood pressure 130/79, pulse ox 100% on room air. HEENT: Moist mucous membrane. Crowded airway. Mallampati score is 4. NECK: Supple. No JVD. LUNGS: Have scattered rhonchi. HEART: S1 and S2. ABDOMEN: Soft, nontender. No organomegaly. EXTREMITIES: No edema. NEUROLOGICAL: Awake and alert. Follows simple command. SKIN: On the trunk, has a rash in different stages. Some of them has erythema, some have cellulitis, other are water filled rash. LABORATORY DATA: Shows hemoglobin 12.3, hematocrit 36.1, WBC 8.5, platelet is 130. His VBG on admission has pH 7.34, pCO2 of 44, O2 of 44. Sodium 133, potassium 4.2, chloride 98, bicarbonate 26, BUN 28, creatinine 1.7, glucose 110, calcium is 8.6, iron is 54, triglyceride 333, cholesterol is 177. Vitamin B12 and folate are pending. TSH is 0.06. Chest x-ray shows no active disease. He has some atelectasis in the left lower lobe. IMPRESSION AND PLAN: diffuse body rash, questionable chickenpox, may have some cellulitis with it, history of hypertension, diabetes, history of alcohol abuse in the past, unsteady on his feet, Wernicke-Korsakoff syndrome suspected in the past. Agree with Dr. Rios with the present management. Continue acyclovir. We will suggest adding doxycycline 100 mg twice a day. May add inhaled bronchodilator for pulmonary toilet, thiamine. Watch for alcohol withdrawal. Thank you and we will follow with you. Bro Engle MD
--- NOTE | 2018-08-20 04:27 | HP ---
The patient was seen and examined on the bedside on 08/18/2018. CHIEF COMPLAINT: Rash. HISTORY OF PRESENT ILLNESS: Mr. Parish Nicholas is a 68-year-old my private patient with past medical history of hypertension, hypercholesterolemia, diabetes mellitus, has generalized fatigue, itchy body rash from three days. The patient has been feeling fatigue associated with vascular itchy rash and never had chickenpox in her childhood. Stated that he has not been eating or drinking well, it hurts and is feeling very fatigue and tired and no night sweat, no swelling of the leg, but having feverish, having shortness of breath and according to the patient recently he flew back from [place] country about four days ago. The patient has no neck stiffness, but having fever. The patient went to urgent care center for chickenpox and started on acylovir, which he took for 3 days, but still rash is there. Even behind her ear, there is a pustule. PAST MEDICAL HISTORY: As above, hypertension, cataracts, insulin-dependent diabetes mellitus type 2. FAMILY HISTORY: Father and mother, noncontributory. HABITS: Never smoked. No drugs, Alcohol use socially. ALLERGIES: THE PATIENT IS ALLERGIC WITH PENICILLIN. HOME MEDICATIONS: Insulin. REVIEW OF SYSTEMS: The patient was seen and examined on the bedside in his room, is on isolation, feeling fatigue and chills. Not eating very well. Looks like dysphagia. No vision change, no hearing change. Sometimes, feeling shortness of breath and coughing. No chest pain, no abdominal pain, no nausea or vomiting. Having pruritus. No abscess or ulceration, but has rash all over the body. No headache or dizziness. No anxiety, depression or suicidal ideation. PHYSICAL EXAMINATION VITAL SIGNS: Temperature 98.8, pulse 50, respiratory rate 16, blood pressure 140/99, pulse oximetry 97. HEENT: Head: Normocephalic and atraumatic. Eyes: PERRLA. Extraocular muscles intact. Conjunctivae clear. Nose patent. Mucous membrane moist. NECK: Supple. No carotid bruit. No JVD or thyromegaly. CHEST: Bilaterally symmetrical. HEART: S1 and S2 positive. LUNGS: Clear to auscultation. Good air exchange. ABDOMEN: Soft, nontender. No organomegaly. EXTREMITIES: No edema, no cyanosis. SKIN: Warm, dry. fluid filled rashes noted on the whole body. Behind the ears is like pustules. LABORATORY DATA: White blood cell 7.7, hemoglobin 13.3, hematocrit 37.9, platelets 95. Sodium 128, potassium 5.3, BUN 29, creatinine 1.6, random glucose 296. AST 81, ALT 71. ASSESSMENT AND PLAN: Mr. Parish Nicholas is a 68-year-old male with anemia, thrombocytopenia, hyponatremia, hyperkalemia, renal insufficiency, insulin-dependent diabetes mellitus type 2, abnormal liver function test, proteinuria, hematuria, influenza type A and B is negative, has chickenpox plus secondary infection behind the ears. We did chest x-rays. Electrocardiogram is also done. Seen by Infectious Disease, Dr. Wei. According to him, the patient has viral exanthem, varicella on the configuration, history of multifocal community-acquired pneumonia, hypertension, history of right hallux osteomyelitis, status post treatment with antibiotics 10/2016, started IV acylovir, renally adjusted and we will check varicella titer. Started airborne and contact isolation. Discussion done with the family, with the patient and nursing staff. We will repeat labs. We will follow up. Ofelia Rios MD MTDD
--- NOTE | 2018-08-20 04:41 | PN ---
DATE: 08/19/2018 SUBJECTIVE: The patient was seen and examined on the bedside on 08/19/2018. The patient is looking comfortable. Rash is still there, a little bit less itchy. Had fever overnight, but has defervesced. No nausea, vomiting, or diarrhea. No hematuria. No hematochezia. PHYSICAL EXAMINATION: VITAL SIGNS: Temperature 98.3, pulse 80 , respiratory rate 18, blood pressure 130/79, pulse oximetry 100%. HEENT: Head normocephalic, atraumatic. Eyes PERRLA. Extraocular muscles intact. Conjunctivae clear. Nose patent. Mucous membrane moist. NECK: Supple. No carotid bruit. No JVD or thyromegaly. CHEST: Bilaterally symmetrical. HEART: S1 and S2 positive. LUNGS: Clear to auscultation. ABDOMEN: Soft, bowel sounds present. No organomegaly. EXTREMITIES: No edema. No cyanosis. NEUROLOGICAL: The patient is awake and alert. Moving all 4 extremities. No focal deficits. Oriented x3. SKIN: Has rash, getting a little bit better, but still there. MEDICATIONS: Aspirin, Lipitor, calamine, Pepcid, TriCor, Neurontin, acyclovir, insulin, Enulose, Claritin, Cozaar, Singulair, thiamine. LABORATORY DATA: White blood cell 8.5, hemoglobin 12.3, hematocrit 36.1, platelets 130. Sodium 133, potassium 4.2, BUN 28, creatinine 1.7, glucose 110. ASSESSMENT AND PLAN: Mr. Parish Nicholas is a 68-year-old male with anemia, renal insufficiency, looks like a viral exanthem, consider varicella as per Infectious Disease, history of multifocal community-acquired pneumonia, hypertension, diabetes mellitus, history of right hallux valgus osteomyelitis, status post treatment with antibiotics in 2016. Continue IV acyclovir day #2. Follow up varicella titers. Continue contact isolation. We will continue monitoring the patient clinically. ID is on the case. Gastrointestinal and deep vein thrombosis prophylaxes. Repeat labs. We will follow up. Ofelia Rios MD [facility] # [id number] [place]
[2018-08-20] MEDS: Insulin Reg-LOW-Coverage SC SCH ×4 (08:00→22:00)
--- NOTE | 2018-08-20 08:32 | CP.PCM.PN ---
<Annabelle Su - Last Filed: 08/20/18 13:28> Subjective - Date & Time of Evaluation Date of Evaluation: 08/20/18 Time of Evaluation: 08:00 - Subjective Subjective: PGY-3 ID resident progress note for Dr. Wei Patient with no acute overnight events. No fever over 24 hours, states the rash has improved in appearance, and less pruritus. Tolerating po, denies nausea, vomiting or diarrhea. Objective - Vital Signs/Intake and Output Vital Signs (last 24 hours): Temp Pulse Resp BP Pulse Ox 98.5 F 87 18 148/85 95 08/19/18 14:00 08/19/18 14:00 08/19/18 14:00 08/19/18 14:00 08/19/18 14:00 Intake and Output: 08/20/18 08/20/18 06:59 18:59 Intake Total 180 Balance 180 - Medications Medications: Current Medications Acetaminophen (Tylenol 325mg Tab) 650 mg PO Q6H PRN PRN Reason: Fever >100.4 F Last Admin: 08/18/18 17:12 Dose: 650 mg Aspirin (Aspirin) 325 mg PO DAILY [facility] Last Admin: 08/18/18 15:10 Dose: 325 mg Atorvastatin Calcium (Lipitor) 20 mg PO DIN [facility] Last Admin: 08/19/18 17:28 Dose: 20 mg Calamine (Calamine Lotion) 0 ml TOP BID [facility] Last Admin: 08/19/18 11:00 Dose: 10 ml Doxycycline Hyclate (Doryx) 100 mg PO Q12 WILLAM; Protocol Last Admin: 08/19/18 22:35 Dose: 100 mg Famotidine (Pepcid) 20 mg PO HS WILLAM Last Admin: 08/19/18 22:38 Dose: 20 mg Fenofibrate (Tricor) 145 mg PO DAILY [facility] Last Admin: 08/19/18 11:00 Dose: 145 mg Gabapentin (Neurontin) 300 mg PO TID [facility] Last Admin: 08/19/18 17:29 Dose: 300 mg Sodium Chloride (Sodium Chloride 0.9%) 1,000 mls @ 100 mls/hr IV .Q10H WILLAM Last Admin: 08/19/18 22:34 Dose: 100 mls/hr Acyclovir 700 mg/ Sodium (Chloride) 100 mls @ 100 mls/hr IV Q12 WILLAM; Protocol Last Admin: 08/19/18 22:39 Dose: 100 mls/hr Insulin Detemir (Levemir) 10 unit SC AMHS [facility] Last Admin: 08/19/18 22:28 Dose: 10 units Insulin Human Regular (Humulin R Low) 0 units SC ACHS [facility]; Protocol Last Admin: 08/19/18 22:35 Dose: Not Given Lactulose (Enulose) 20 gm PO HS PRN PRN Reason: Constipation Loratadine (Claritin) 10 mg PO DAILY [facility] Last Admin: 08/19/18 11:00 Dose: 10 mg Losartan Potassium (Cozaar) 25 mg PO DAILY [facility] Last Admin: 08/19/18 11:00 Dose: 25 mg Montelukast Sodium (Singulair) 10 mg PO HS [facility] Last Admin: 08/19/18 22:35 Dose: 10 mg Thiamine HCl (Vitamin B1 Tab) 100 mg PO DAILY [facility] Last Admin: 08/19/18 11:00 Dose: 100 mg - Labs Labs: 08/19/18 07:00 08/19/18 07:00 - Constitutional Appears: No Acute Distress - Head Exam Head Exam: ATRAUMATIC, NORMAL INSPECTION, NORMOCEPHALIC - Eye Exam Eye Exam: Normal appearance - ENT Exam ENT Exam: Mucous Membranes Moist - Neck Exam Neck Exam: Normal Inspection - Respiratory Exam Respiratory Exam: Clear to Ausculation Bilateral, NORMAL BREATHING PATTERN. absent: Rales, Rhonchi, Wheezes, Respiratory Distress, Stridor - Cardiovascular Exam Cardiovascular Exam: REGULAR RHYTHM, +S1, +S2 - GI/Abdominal Exam GI & Abdominal Exam: Soft, Normal Bowel Sounds. absent: Distended, Firm, Guarding, Rigid, Tenderness - Extremities Exam Extremities Exam: Normal Inspection. absent: Pedal Edema, Tenderness - Back Exam Back Exam: rash noted - Neurological Exam Neurological Exam: Alert, Awake, Oriented x3 - Psychiatric Exam Psychiatric exam: Normal Affect, Normal Mood - Skin Skin Exam: Abrasion, Dry, Rash (multiple rashes, from head, truck and extremities, in different stages, some dry and crusted, and others vesicular looking. ), Warm Assessment and Plan - Assessment and Plan (Free Text) Assessment: Patient with a 68 y/o recently vacationed to [place] presenting with head, trunk, and extremities pruritric rash, Likely viral exanthem, more clinically like varicella history of multifocal community-acquired pneumonia HTN DM history of right hallux osteomyelitis S/P treatment with antibiotics 2015 Plan: Pending VCV titers. Continue with acyclovir 500 mg q12, day# 3 ( 7 days total). Will add HIV. No growth on blood cultures, fever resolved, no leukocytosis, influenza negative. Continue with contact and airborne precautions. Continue with medical management as per primary. Patient seen, examined and case discussed with detail with Dr. Wei. <Cornell Wei - Last Filed: 08/20/18 22:50> Objective - Vital Signs/Intake and Output Vital Signs (last 24 hours): Temp Pulse Resp BP Pulse Ox 99.6 F 81 19 135/66 95 08/20/18 06:00 08/20/18 06:00 08/20/18 06:00 08/20/18 06:00 08/20/18 06:00 - Medications Medications: Current Medications Acetaminophen (Tylenol 325mg Tab) 650 mg PO Q6H PRN PRN Reason: Fever >100.4 F Last Admin: 08/18/18 17:12 Dose: 650 mg Aspirin (Aspirin) 325 mg PO DAILY [facility] Last Admin: 08/20/18 10:00 Dose: 325 mg Atorvastatin Calcium (Lipitor) 20 mg PO DIN [facility] Last Admin: 08/20/18 16:35 Dose: 20 mg Calamine (Calamine Lotion) 0 ml TOP BID [facility] Last Admin: 08/20/18 18:00 Dose: 10 ml Doxycycline Hyclate (Doryx) 100 mg PO Q12 [facility]; Protocol Last Admin: 08/20/18 21:59 Dose: 100 mg Famotidine (Pepcid) 20 mg PO HS [facility] Last Admin: 08/20/18 21:59 Dose: 20 mg Fenofibrate (Tricor) 145 mg PO DAILY [facility] Last Admin: 08/20/18 10:40 Dose: 145 mg Gabapentin (Neurontin) 300 mg PO TID [facility] Last Admin: 08/20/18 18:00 Dose: Not Given Sodium Chloride (Sodium Chloride 0.9%) 1,000 mls @ 100 mls/hr IV .Q10H [facility] Last Admin: 08/20/18 10:46 Dose: 100 mls/hr Acyclovir 700 mg/ Sodium (Chloride) 100 mls @ 100 mls/hr IV Q12 [facility]; Protocol Last Admin: 08/20/18 22:00 Dose: 100 mls/hr Insulin Detemir (Levemir) 10 unit SC AMHS [facility] Last Admin: 08/20/18 21:59 Dose: 10 units Insulin Human Regular (Humulin R Low) 0 units SC ACHS [facility]; Protocol Last Admin: 08/20/18 22:00 Dose: Not Given Lactulose (Enulose) 20 gm PO HS PRN PRN Reason: Constipation Loratadine (Claritin) 10 mg PO DAILY [facility] Last Admin: 08/20/18 10:40 Dose: 10 mg Losartan Potassium (Cozaar) 25 mg PO DAILY [facility] Last Admin: 08/20/18 10:46 Dose: 25 mg Montelukast Sodium (Singulair) 10 mg PO HS [facility] Last Admin: 08/20/18 21:59 Dose: 10 mg Thiamine HCl (Vitamin B1 Tab) 100 mg PO DAILY [facility] Last Admin: 08/20/18 10:40 Dose: 100 mg - Labs Labs: 08/19/18 07:00 08/19/18 07:00 Assessment and Plan - Assessment and Plan (Free Text) Plan: Infectious Diseases Attending Physician Addendum Patient seen, examined, discussed with director medical safety. I have reviewed the pertinent clinical information. I agree with the above findings, assessment and plan and in addition: Assessment consider viral exanthem, consider varicella, slowly improving clinically history of multifocal community-acquired pneumonia HTN DM history of right hallux osteomyelitis S/P treatment with antibiotics 2015 Plan continue IV Acyclovir day 3 (renally-adjusted) and follow up Varicella titers; continue airborne and contact isolation will continue to monitor clinically
[2018-08-20] MEDS: Calamine-Zinc Oxide Lotion (120 ml) TOP SCH ×2 (10:00→18:00)
[2018-08-20] MEDS: Insulin Detemir 100 units/ml Vial (Levemir) SC SCH ×2 (10:39→21:59)
[2018-08-20] MEDS: Sodium Chloride 0.9% 1,000 ML IV SCH (10:46)
--- NOTE | 2018-08-21 01:59 | PN ---
DATE: 08/20/2018 PULMONARY PROGRESS NOTE REFERRING PHYSICIAN: Ofelia Rios MD. SUBJECTIVE: He is lying in the bed, head at 45 degrees. Feels better. Decreased cough. No chest pain. No nausea. No vomiting. No diarrhea, leg pain, leg swelling. Rash is still present on the trunk, front and back area at different stages. OBJECTIVE: GENERAL: In no acute distress. VITAL SIGNS: Temperature is 99, heart rate is 81, respiratory rate is 220, blood pressure 135/66, pulse ox 95% on room air. HEENT: Moist mucous membrane. Crowded airway. NECK: Supple. No JVD. LUNGS: Have a fair airflow with few rhonchi. HEART: S1 and S2. ABDOMEN: Soft, nontender. No organomegaly. EXTREMITIES: There is no edema. NEUROLOGICAL: Awake and alert. Follows simple command. SKIN: Has a diffuse rash with different stages of majority. MEDICATIONS: He is on acyclovir at mg every 12 hours, aspirin 325 mg daily, calamine lotion twice a day, Claritin 10 mg daily, Cozaar 25 mg daily, doxycycline 100 mg twice a day, lactulose 20 g at bedtime p.r.n., insulin coverage, Levemir 10 units subcu a.m. and at bedtime, Lipitor 20 mg daily, Neurontin 300 mg three times a day, Pepcid 20 mg daily, Singulair 10 mg daily, IV fluid normal saline 100 mL/hour, Tricor 145 mcg daily, Tylenol p.r.n., vitamin B1 at 100 mg daily. LABORATORY DATA: Reviewed, it shows blood sugar this morning is 134. IMPRESSION AND PLAN: Diffuse body rash, questionable chickenpox. There are some areas of cellulitis, hypertension, diabetes, history of alcohol abuse, unsteady on the feet, history of Wernicke-Korsakoff syndrome suspected. Pulmonary point of view, doing okay. Continue bronchodilator. Continue antibacterial and antiviral. Gastric prophylaxis. Fall precaution. Continue therapy. Close watch for alcohol withdrawal. Fall precaution. Thank you and we will follow with you. Bro Engle MD [facility] # [id number]
[2018-08-21 07:59] LABS: BASO # 0.02 K/mm3 (0.0-2.0); BASO % 0.3 % (0.0-3.0); EOS % 0.3 % (1.5-5.0); GRAN # 3.42 (1.4-6.5); HEMOGLOBIN 10.6 g/dL (14.0-18.0); LYMPH # 2.2 (1.2-3.4); LYMPH % 33.7 % (22.0-35.0); MEAN CORPUSCULAR HEMOGLOBIN 27.7 pg (25.0-35.0); MEAN CORPUSCULAR HGB CONC 33.8 g/dl (31.0-37.0); MEAN PLATELET VOLUME 10.6 fl (7.0-11.0); MONO # 0.8 (0.1-0.6); MONO % 12.7 % (1.0-6.0); RBC 3.83 10^6/uL (3.5-6.1); RED CELL DISTRIBUTION WIDTH 12.8 % (11.5-14.5); WHITE BLOOD COUNT 6.5 10^3/ul (4.5-11.0)
[2018-08-21] MEDS: Insulin Reg-LOW-Coverage SC SCH ×4 (08:03→22:37)
[2018-08-21 08:05] LABS: ALBUMIN 3.2 g/dL (3.0-4.8); ALT/SGPT 57 U/L (7-56); AST/SGOT 55 U/L (17-59); BLOOD UREA NITROGEN 16 mg/dL (7-21); CALCIUM 8.5 mg/dL (8.4-10.5); GFR NON-AFRICAN AMERICAN > 60
--- NOTE | 2018-08-21 08:15 | PN ---
DATE: 08/20/2018 SUBJECTIVE: The patient is a 68-year-old male. Patient was seen and examined at the bedside on 08/20/2018. Looking comfortable. Rash is getting better. Nephew is on the bedside. No acute overnight event noted. No fever over 24 hours. Rash is improved in appearance, less pruritic, turning black. He is tolerating p.o. Denies nausea, vomiting or diarrhea. No fever. No chills. No headache. No dizziness. PHYSICAL EXAMINATION: VITAL SIGNS: Temperature 98.5, pulse 87, respiratory rate 18, blood pressure 144/55, pulse oximetry 95%. HEENT: Head: Normocephalic and atraumatic. Eyes: PERRLA. Extraocular muscles intact. Conjunctivae clear. Nose patent. Mucous membrane moist. NECK: Supple. No carotid bruit. No JVD or thyromegaly. CHEST: Bilaterally symmetrical. HEART: S1 and S2 positive. LUNGS: Clear to auscultation. ABDOMEN: Soft. Bowel sounds positive. No organomegaly. EXTREMITIES: No edema, no cyanosis. NEUROLOGIC: Patient is awake and alert. Moving all 4 extremities. No focal deficits. SKIN: Has rash all over on the skin including the hand, the ears, turning black, but some vesicle are still having whitish material. MEDICATIONS: Tylenol, aspirin, Lipitor, calamine, doxycycline, Pepcid, TriCor, gabapentin, acyclovir, lactulose, thiamine. LABORATORY DATA: White blood cell 8.5, hemoglobin 12.3, hematocrit 36.1, platelets 130. Sodium 133, potassium 4.2, BUN 28, creatinine 1.7, glucose 110. ASSESSMENT AND PLAN: Mr. Parish Nicholas is a 68-year-old male with anemia, renal insufficiency, presenting with the head, neck and extremities pruritic rash likely viral exanthem more clinically varicella, history of multifocal community-acquired pneumonia, hypertension, diabetes mellitus, history of right hallux valgus osteomyelitis, status post treatment with antibiotics in 10/2016. Continue varicella-zoster virus titer. Continue acyclovir, day #[address] Samuel ordered human immunodeficiency virus test also. Waiting for blood culture. Fever resolved. Leukocytosis is better. Discussion done with the family. Gastrointestinal and deep vein thrombosis prophylaxes. Repeat labs. Hemoglobin A1c is 14, triglycerides 333. Continue present treatment. We will follow up. Ofelia Rios MD MTDJonny
[2018-08-21] MEDS: Calamine-Zinc Oxide Lotion (120 ml) TOP SCH ×2 (10:06→17:10)
[2018-08-21] MEDS: Insulin Detemir 100 units/ml Vial (Levemir) SC SCH ×2 (11:08→22:36)
--- NOTE | 2018-08-21 23:53 | PN ---
DATE: 08/21/2018 SUBJECTIVE: The patient is a 68-year-old male. The patient was seen and examined at the bedside on 08/21/2018. The patient is looking comfortable. Rash is getting better. No nausea, vomiting, or diarrhea. No hematuria or hematochezia. No swelling of the legs. No chest pain. No palpitation. Appetite is improving. PHYSICAL EXAMINATION: VITAL SIGNS: Temperature 97.4, pulse 76, blood pressure 145/86, respiratory rate 20, oxygenation 99%. HEENT: Head: Normocephalic and atraumatic. Eyes: PERRLA. Extraocular muscles intact. Conjunctivae clear. Nose patent. NECK: Supple. No carotid bruit. No JVD or thyromegaly. CHEST: Bilaterally symmetrical. HEART: S1 and S2 positive. LUNGS: Clear to auscultation. ABDOMEN: Soft. Bowel sounds positive. No organomegaly. EXTREMITIES: No edema, no cyanosis. NEUROLOGIC: Patient is awake and alert. Moving all 4 extremities. No focal deficits. SKIN: Has rashes, vesicles, turning black. MEDICATIONS: Acyclovir, aspirin, calamine lotion, Claritin, Cozaar, doxycycline, insulin, Levemir, Lipitor, Neurontin, Pepcid, Singulair, TriCor, Tylenol, B1. LABORATORY DATA: White blood cell 6.5, hemoglobin 10.6, hematocrit 31.4, platelets 152. Sodium 135, potassium 3.5, BUN 16, creatinine 1.2, glucose 329. AST 57. ASSESSMENT AND PLAN: Mr. Parish Nicholas is a 68-year-old male with anemia; hypokalemia, we replaced; hyperglycemia; abnormal liver function test; proteinuria; hematuria; herpes zoster virus; immunoglobulin M antibody 1.815; seen by Infectious Disease, Dr. Cornell Wei, getting medication; the patient has viral exanthem, consider varicella, slowly improving clinically; history of multifocal community-acquired pneumonia; hypertension; diabetes mellitus; history of right hallux osteomyelitis, status post treatment with antibiotics. Continue IV acyclovir, day #4. Follow up titer. Continue airborne and contact isolation. Length of time discussion done with the family and the nurse. We will follow up. Ofelia Rios MD [facility] # [id number]
--- NOTE | 2018-08-22 01:06 | PN ---
DATE: 08/21/2018 PULMONARY PROGRESS NOTE REFERRING PHYSICIAN: Dr. Rios SUBJECTIVE: He is lying in the bed, feels okay. Has some itching on the rash which is a different stages from the trunk, abdomen, upper and lower extremities and some on the face. Cough is better. No nausea, no vomiting, no diarrhea, leg pain or much leg swelling. OBJECTIVE: GENERAL: In no distress. VITAL SIGNS: Temperature is 98, heart rate 73, respiratory rate is 20, blood pressure 145/86, pulse ox 99% on room air. HEENT: Moist mucous membrane. Crowded airway. Mallampati score is 4. NECK: Supple. No JVD. LUNGS: Have a fair airflow with few rhonchi. HEART: S1 and S2. ABDOMEN: Soft, nontender. No organomegaly. EXTREMITIES: No significant edema. Diffuse rash from head to toe at different stages. NEUROLOGIC: Awake and alert, follows simple command. MEDICATIONS: He is on acyclovir 700 mg every 12 hours, aspirin 325 mg daily, calamine lotion twice a day, Claritin 10 mg daily, Cozaar 25 mg daily, doxycycline 100 mg twice a day, lactulose 20 g at bedtime p.r.n., insulin coverage, Levemir 10 units subcu a.m. and at bedtime, Lipitor 20 mg daily, gabapentin 300 mg three times a day, Pepcid 20 mg at bedtime, Singulair 10 mg daily, TriCor 145 mg daily, Tylenol p.r.n., vitamin B1 100 mg daily. LABORATORY DATA: Shows hemoglobin 10.6, hematocrit 31.4, WBC 6.5, platelet is 152. Sodium 135, potassium 3.5, chloride 104, bicarbonate 24, BUN 16, creatinine 1.2, glucose 112. Calcium 8.5, phosphorus 2.8, magnesium 1.8, AST 55, ALT 57, alk phos is 72. Albumin is 3.2. Influenza A and B antibody negative. Varicella zoster IgM antibody is 1.81. Blood culture has been negative. IMPRESSION AND PLAN: Diffuse chickenpox rash in different stages with some areas of cellulitis, hypertension, diabetes, history of alcohol abuse, suspected Wernicke-Korsakoff syndrome. Case discussed with nursing staff. Continue calamine lotion. Continue acyclovir, doxycycline, bronchodilator, gastric prophylaxis, deep venous thrombosis prophylaxis. Follow up labs in the morning. Thank you and we will follow with you. Bro Engle MD
--- NOTE | 2018-08-22 02:36 | PN ---
DATE: 08/21/2018 SUBJECTIVE: The patient is in bed, in no acute distress. The patient was seen early this morning. PHYSICAL EXAMINATION: VITAL SIGNS: On exam, temperature is 98, blood pressure is 130/70, respiratory rate of 20. HEENT: Examination of HEENT is unremarkable. NECK: Supple. LUNGS: Have decreased breath sounds. HEART: Normal S1, S2. ABDOMEN: Soft. SKIN: Examination of the skin reveals the rash is improving. LABORATORY DATA: Laboratory examination reveals the white count of 6.5. Chemistries are noted. Creatinine is 1.2. Urinalysis is noted. EBV IgM antibody is 1.81, which is high. Microbiology reveals the blood cultures are negative. Review of orders reveals the patient to be on acyclovir. ASSESSMENT AND PLAN: A 68-year-old male, originally born in [place], admitted with pleuritic rash, viral exanthem, Varicella with a history of multifocal community-acquired pneumonia, hypertension, diabetes and on acyclovir day #3, would complete 7 days total. We will follow with you. We will check on an human immunodeficiency virus test. Fredy Samuel MD
[2018-08-22 07:43] LABS: BLOOD UREA NITROGEN 16 mg/dL (7-21); CALCIUM 8.6 mg/dL (8.4-10.5); GFR NON-AFRICAN AMERICAN > 60
[2018-08-22] MEDS: Insulin Reg-LOW-Coverage SC SCH ×4 (09:08→21:53)
[2018-08-22] MEDS: Insulin Detemir 100 units/ml Vial (Levemir) SC SCH ×2 (09:09→21:54)
[2018-08-22] MEDS: Calamine-Zinc Oxide Lotion (120 ml) TOP SCH ×2 (09:12→18:07)
--- NOTE | 2018-08-22 18:38 | PN ---
DATE: 08/22/2018 PULMONARY PROGRESS NOTE REFERRING PHYSICIAN: Ofelia Rios MD SUBJECTIVE: He is lying in the bed, comfortable. Still has diffuse rash from head to toe with different stages. Still itching, using calamine lotion. No nausea, no vomiting, no diarrhea. No leg pain or leg swelling. OBJECTIVE: GENERAL: In no distress. VITAL SIGNS: Temperature is 98, heart rate 77, respiratory rate is 18, blood pressure 111/52, pulse ox 94% on room air. HEENT: Moist mucous membrane. No ulcer or thrush. NECK: Supple. No JVD. LUNGS: Fair airflow with rhonchi. HEART: S1 and S2. ABDOMEN: Soft, nontender. No organomegaly. EXTREMITIES: No edema. Has diffuse rash from head to toe. NEUROLOGIC: Awake and alert, follows simple command. MEDICATIONS: He is on acyclovir 700 mg twice a day, aspirin 325 mg daily, calamine lotion twice a day, Claritin 10 mg daily, Cozaar 25 mg daily, lactulose 20 g p.o. at bedtime p.r.n., insulin coverage, Levemir 10 units subcu in the a.m. and at bedtime, Lipitor 20 mg daily, gabapentin 300 mg three times a day, Pepcid 20 mg at bedtime, Singulair 10 mg daily, TriCor 145 mg daily, Tylenol p.r.n., and vitamin B 100 mg daily. LABORATORY DATA: Reviewed. Noted sodium 135, potassium 4.1, chloride 103, bicarbonate is 25. BUN 16, creatinine 1.2. Glucose 180. Calcium is 8.6. Microbiology, blood culture, one set was done. So far, there is no growth. IMPRESSION AND PLAN: Chickenpox involving the whole skin from head to toe at different stages. There are also some areas of cellulitis. Hypertension, diabetes, bronchitis, history of alcohol abuse, suspected Wernicke-Korsakoff syndrome. Pulmonary point of view, doing okay. Continue p.o. and inhaled bronchodilator. Antibiotics as per Infectious Disease. Antihistamine. Fall precaution. Gastric and DVT prophylaxes. Thank you and we will follow with you. rBo Engle MD
[2018-08-22 23:25] VITALS: RESP 20
--- NOTE | 2018-08-23 00:09 | PN ---
DATE: 08/22/2018 SUBJECTIVE: The patient is in bed, in no acute distress. Nontoxic. PHYSICAL EXAMINATION: VITAL SIGNS: Temperature is 97, blood pressure is 111/50, respiratory rate of 18. HEENT: Unremarkable. NECK: Supple. LUNGS: Have decreased breath sounds. HEART: Normal S1, S2. ABDOMEN: Soft. LABORATORY EXAMINATION: Reveals the white count of 6.5, hemoglobin of 10, platelets of 152. Chemistries reveals BUN of 16, creatinine of 1.2. Urinalysis is noted. Serology is noted. ASSESSMENT AND PLAN: A 68-year-old male, originally from [place], admitted with pleuritic rash, viral exanthem, with history of pneumonia, history of hypertension, diabetes, with Varicella, day #4 of acyclovir, would complete 7 days. As of this morning examination, the patient still has some active lesions. We will continue the current therapy. Dr. Engle's note is reviewed. Review of orders reveals acyclovir requires renewal; we will do so. Fredy Samuel MD
--- NOTE | 2018-08-23 08:09 | PN ---
DATE: 08/22/2018 SUBJECTIVE: Patient was seen and examined at the bedside on 08/22/2018. Son-in-law was on the bedside. Patient is looking comfortable. Rash is better. Itchiness is better. No fever. No chills. No nausea, vomiting, diarrhea. No hematuria or hematochezia. No swelling of the legs. No chest pain. No palpitation. No headache, no dizziness. PHYSICAL EXAMINATION: VITAL SIGNS: Temperature 98, heart rate 77, respiratory rate 18, blood pressure is 110/52, pulse oximetry 94% on room air. HEENT: Head: Normocephalic, atraumatic. Eyes: PERRLA. Extraocular muscles intact. Conjunctivae clear. Nose patent. Mucous membrane moist. NECK: Supple. No carotid bruit, JVD, or thyromegaly. CHEST: Bilaterally symmetrical. LUNGS: Fair airflow with rhonchi. HEART: S1 and S2 positive. ABDOMEN: Soft, nontender. No organomegaly. EXTREMITIES: No edema. No cyanosis. Has diffused rash from head to toe, getting better. NEUROLOGIC: Awake and alert. Follows simple command. MEDICATIONS: Acyclovir, aspirin, calamine lotion, Claritin, Cozaar, lactulose, insulin coverage, Levemir, Lipitor, gabapentin, Pepcid, Singulair, TriCor, Tylenol, vitamin B1. LABORATORY DATA: Sodium 135, potassium 4.1, BUN 16, creatinine 1.2. Glucose 180, calcium 8.6. ASSESSMENT AND PLAN: Mr. Parish Nicholas is a 68-year-old male with chickenpox involving the whole body from head to toes, even mucous membrane of the mouth, [place]'s disease. There are still some areas of cellulitis. Patient has hypertension, diabetes mellitus, bronchitis, history of alcohol abuse, Wernicke-Korsakoff syndrome. Continue p.o. and inhaled bronchodilators, antibiotics as per Infectious Disease, antihistamine, fall precautions, gastric and deep venous thrombosis prophylaxes. Reviewed records and notes, and reviewed Dr. Samuel's notes, also Infectious Disease notes. Discussion done with the family on the bedside. All questions answered. According to ID, patient need 7 days of acyclovir, today is the third day. We will follow up. Ofelia Rios MD [facility] # [id number]
[2018-08-23 08:20] VITALS: TEMP 98.3; O2SAT 97
[2018-08-23] MEDS: Insulin Reg-LOW-Coverage SC SCH ×3 (08:27→17:04)
[2018-08-23 10:41] VITALS: PULSE 88
[2018-08-23] MEDS: Insulin Detemir 100 units/ml Vial (Levemir) SC SCH (12:25)
[2018-08-23] MEDS: Calamine-Zinc Oxide Lotion (120 ml) TOP SCH ×2 (12:28→17:05)
[2018-08-23 14:14] VITALS: BP 167/96
--- NOTE | 2018-08-23 17:46 | US ---
HISTORY: Leg pain and swelling. Evaluate for DVT PHYSICIAN(S): Marin Bennett MD. TECHNIQUE: Duplex sonography and color-flow Doppler with graded compression were used to evaluate the deep venous systems of both lower extremities. FINDINGS: The visualized deep venous systems of both lower extremities are sonographically normal and compressible. Normal wave forms and augmentation are seen. There is no sonographic evidence for deep venous thrombosis in the visualized segments of both lower extremities. IMPRESSION: No sonographic evidence for deep venous thrombosis in the visualized segments of both lower extremities.
--- NOTE | 2018-08-24 03:20 | PN ---
DATE: 08/23/2018 REFERRING PHYSICIAN: Ofelia Rios MD SUBJECTIVE: The patient is sitting side of the bed. Family is at bedside. Night was unremarkable. Feels better, being discharged. No workup. No shortness of breath. No nausea. No vomiting, diarrhea, leg pain, or leg swelling. Rash is healing well. No itching. OBJECTIVE: GENERAL: In no acute distress. VITAL SIGNS: Temperature is 98, heart rate is 80, respiratory rate is 20, blood pressure 167/96, pulse ox 97% on room air. HEENT: Moist mucous membrane. No ulcer or thrush noted. NECK: Supple. No JVD. LUNGS: Have fair airflow with few rhonchi. HEART: S1 and S2. ABDOMEN: Soft and nontender. No organomegaly. EXTREMITIES: No edema. NEUROLOGIC: Awake and alert. Follows simple command. MEDICATIONS: Reviewed and noted. No new changes in medications since yesterday. LABORATORY DATA: Showed blood sugar this morning was 300 plus, Varicella virus, IgM antibody was positive. Microbiology; blood cultures have been negative. Has a venous ultrasound done today, which shows no sign of DVT. IMPRESSION AND PLAN: Chickenpox involving whole body, also has bronchitis, could have lung involvement, history of diabetes, hypertension, alcohol abuse, suspected Wernicke-Korsakoff syndrome. Spoke to family at bedside. All the questions answered. Being discharged to home on p.o. acyclovir. No new lesions noted. Doxycycline could be discharged. The patient asked to stop using alcohol. Continue thiamine. Thank you and we will follow with you. Bro Engle MD
--- NOTE | 2018-08-24 03:52 | PN ---
DATE: 08/23/2018 SUBJECTIVE: The patient is in bed, in no acute distress, nontoxic. OBJECTIVE: VITAL SIGNS: On exam, temperature is 98, blood pressure is 129/70, respiratory rate of 18. HEENT: Examination of HEENT is unremarkable. NECK: Supple. LUNGS: Have decreased breath sounds. HEART: Normal S1, S2. ABDOMEN: Soft. LABORATORY DATA: Reveals a white count of 6.5, hemoglobin of 10. Chemistries are noted. Urinalysis noted. Serology is reviewed. ASSESSMENT AND PLAN: This is a 68-year-old male who is originally from [place], admitted with rash which is pruritic, with a viral exanthem, history of pneumonia, history of hypertension, diabetes, on day #5 of acyclovir for varicella. The lesions appear to be resolving. Will complete 7 days of therapy. Fredy Samuel MD
== END 2018-08-23 21:11 | disposition home or self-care (01) | DRG 866 ==
LOC: ED 20:22 → ERH 08-18 00:15 → 5RSO 08-18 04:14 → OBSVTOIN 08-18 20:36
PROVIDERS: ADMIT Internal Medicine; ATTEND Internal Medicine
DX: B01.9 Varicella without complication (principal); E87.1 Hypo-osmolality and hyponatremia; L03.818 Cellulitis of other sites; E11.69 Type 2 diabetes mellitus with other specified complication; I10 Essential (primary) hypertension; E86.0 Dehydration; N28.9 Disorder of kidney and ureter, unspecified; E87.5 Hyperkalemia; D69.6 Thrombocytopenia, unspecified; R21 Rash and other nonspecific skin eruption; F10.96 Alcohol use, unspecified with alcohol-induced persisting amnestic disorder; E87.6 Hypokalemia; J40 Bronchitis, not specified as acute or chronic; D64.9 Anemia, unspecified; E78.00 Pure hypercholesterolemia, unspecified; R79.89 Other specified abnormal findings of blood chemistry; Z79.4 Long term (current) use of insulin; Z88.0 Allergy status to penicillin; Z87.01 Personal history of pneumonia (recurrent); Z78.9 Other specified health status